=== PATIENT | female | born 1995 | race Caucasian/White ===

== ENCOUNTER 2017-06-25 22:22 | Emergency (ER) | payer OTHER, MEDICAID ==
[2017-06-25] MEDS ORDERED: SODIUM CHLORIDE 0.9% 1000ML 1,000 ML IVS ONE (23:32)
--- NOTE | 2017-06-26 00:48 | ED.PDOC ---
History of Present Illness - General Chief Complaint: Abdominal Pain Stated Complaint: left side pain Time Seen by Provider: 06/26/17 00:41 Information Source: patient Exam Limitations: no limitations - History of Present Illness Initial Comments: Kathy Earl 21 y/o female stated that she started having sharp intermittent abdominal pains the last 4 days not getting better and yesterday had 2 episodes of vomiting. Had normal bm,no diarrhea,no vaginal discharge. Abdominal Pain Onset Location: LLQ Pain Radiation: no radiation, LLQ Quality: sharpness Timing/Duration: other - 4 days ago Improving Factors: nothing Worsening Factors: nothing Associated Symptoms: nausea/vomiting - x 2 yesterday Review of Systems - Review of Systems Constitutional: States: no symptoms reported EENTM: States: no symptoms reported Respiratory: States: no symptoms reported Cardiology: States: no symptoms reported Gastrointestinal/Abdominal: States: see HPI Genitourinary: States: no symptoms reported Musculoskeletal: States: no symptoms reported Skin: States: no symptoms reported Past Medical History (General) - Patient Medical History Hx Seizures: No Hx Stroke: No Hx Dementia: No Hx Asthma: Yes Hx of COPD: No Hx Cardiac Disorders: No Hx Congestive Heart Failure: No Hx Pacemaker: No Hx Hypertension: No Hx Thyroid Disease: No Hx Diabetes: Yes - gestational Hx Gastroesophageal Reflux: No Hx Renal Disease: No Hx Cancer: No Hx of HIV: No Hx Hepatitis C: No Hx MRSA: No Surgical History: other - c section - Vaccination History Hx Tetanus, Diphtheria Vaccination: No Hx Influenza Vaccination: No Hx Pneumococcal Vaccination: No - Social History Hx Tobacco Use: No Hx Chewing Tobacco Use: No Hx Alcohol Use: No Hx Substance Use: No Hx Substance Use Treatment: No Hx Depression: No Hx Physical Abuse: No Hx Emotional Abuse: No Hx Suspected Abuse: No - Female History Hx Last Menstrual Period: 06/08/17 Patient : No Expected Date of Delivery:: 10/10/15 Family Medical History - Family History Paternal Grandparents Family History: Unknown Living Status: Unknown Hx Family Diabetes: Yes - type 2 Hx Family;Other: Ht disease Sister Living Status: Still Living Hx Family;Other: thyroid dysfunction, migraines Mother Family History: No Known Hx Family;Other: migraines, multiple births Father Living Status: Still Living Hx Family Hypertension: Yes Hx Family Diabetes: Yes Hx Family Cancer: Yes Hx Family;Other: multiple births Brother Paternal Family History: Unknown Hx Family Cancer: Yes - bone Progress - Progress Progress: 06/26/17 01:29 Vital Signs - 8 hr 06/25/17 23:34 Temperature 98.8 F Pulse Rate [ 99 H left] Respiratory 18 Rate Blood Pressure 132/81 [left] O2 Sat by Pulse 94 L Oximetry Laboratory Results - last 24 hr 06/25/17 06/25/17 06/25/17 23:30 23:30 23:32 WBC 11.1 H RBC 5.36 Hgb 14.1 Hct 42.9 MCV 80.1 L MCH 26.3 L MCHC 32.8 L RDW 14.6 H Plt Count 283 MPV 9.4 Absolute Neuts (auto) 6.90 H Absolute Lymphs (auto) 3.00 Absolute Monos (auto) 0.80 Absolute Eos (auto) 0.30 Absolute Basos (auto) 0.10 Neutrophils % 62.3 Lymphocytes % 26.6 Monocytes % 7.1 Eosinophils % 2.9 Basophils % 1.1 Sodium 140 Potassium 3.9 Chloride 107 Carbon Dioxide 24 Anion Gap 12.9 BUN 9 Creatinine 0.68 BUN/Creatinine Ratio 13.2 Random Glucose 82 Serum Osmolality 277.2 Calcium 9.6 Total Bilirubin 0.3 AST 23 ALT 21 Alkaline Phosphatase 77 Serum Total Protein 7.5 Albumin 4.2 Globulin 3.3 Albumin/Globulin Ratio 1.3 Serum HCG, Qual Urine Color Yellow Urine Appearance Sl cloudy Urine pH 6.0 Ur Specific [place] 1.025 Urine Protein Negative Urine Glucose (UA) Negative Urine Ketones Negative Urine Blood Negative Urine Nitrite Negative Urine Bilirubin Negative Urine Urobilinogen 0.2 Ur Leukocyte Esterase Negative Urine RBC 0 Urine WBC 1-3 Ur Epithelial Cells 20-30 Calcium Oxalate Crystal 1+ Urine Bacteria 1+ 06/26/17 00:48 WBC RBC Hgb Hct MCV MCH MCHC RDW Plt Count MPV Absolute Neuts (auto) Absolute Lymphs (auto) Absolute Monos (auto) Absolute Eos (auto) Absolute Basos (auto) Neutrophils % Lymphocytes % Monocytes % Eosinophils % Basophils % Sodium Potassium Chloride Carbon Dioxide Anion Gap BUN Creatinine BUN/Creatinine Ratio Random Glucose Serum Osmolality Calcium Total Bilirubin AST ALT Alkaline Phosphatase Serum Total Protein Albumin Globulin Albumin/Globulin Ratio Serum HCG, Qual Negative Urine Color Urine Appearance Urine pH Ur Specific [place] Urine Protein Urine Glucose (UA) Urine Ketones Urine Blood Urine Nitrite Urine Bilirubin Urine Urobilinogen Ur Leukocyte Esterase Urine RBC Urine WBC Ur Epithelial Cells Calcium Oxalate Crystal Urine Bacteria 06/26/17 01:30 Laboratory Results - last 24 hr 06/25/17 06/25/17 06/25/17 23:30 23:30 23:32 WBC 11.1 H RBC 5.36 Hgb 14.1 Hct 42.9 MCV 80.1 L MCH 26.3 L MCHC 32.8 L RDW 14.6 H Plt Count 283 MPV 9.4 Absolute Neuts (auto) 6.90 H Absolute Lymphs (auto) 3.00 Absolute Monos (auto) 0.80 Absolute Eos (auto) 0.30 Absolute Basos (auto) 0.10 Neutrophils % 62.3 Lymphocytes % 26.6 Monocytes % 7.1 Eosinophils % 2.9 Basophils % 1.1 Sodium 140 Potassium 3.9 Chloride 107 Carbon Dioxide 24 Anion Gap 12.9 BUN 9 Creatinine 0.68 BUN/Creatinine Ratio 13.2 Random Glucose 82 Serum Osmolality 277.2 Calcium 9.6 Total Bilirubin 0.3 AST 23 ALT 21 Alkaline Phosphatase 77 Serum Total Protein 7.5 Albumin 4.2 Globulin 3.3 Albumin/Globulin Ratio 1.3 Serum HCG, Qual Urine Color Yellow Urine Appearance Sl cloudy Urine pH 6.0 Ur Specific [place] 1.025 Urine Protein Negative Urine Glucose (UA) Negative Urine Ketones Negative Urine Blood Negative Urine Nitrite Negative Urine Bilirubin Negative Urine Urobilinogen 0.2 Ur Leukocyte Esterase Negative Urine RBC 0 Urine WBC 1-3 Ur Epithelial Cells 20-30 Calcium Oxalate Crystal 1+ Urine Bacteria 1+ 06/26/17 00:48 WBC RBC Hgb Hct MCV MCH MCHC RDW Plt Count MPV Absolute Neuts (auto) Absolute Lymphs (auto) Absolute Monos (auto) Absolute Eos (auto) Absolute Basos (auto) Neutrophils % Lymphocytes % Monocytes % Eosinophils % Basophils % Sodium Potassium Chloride Carbon Dioxide Anion Gap BUN Creatinine BUN/Creatinine Ratio Random Glucose Serum Osmolality Calcium Total Bilirubin AST ALT Alkaline Phosphatase Serum Total Protein Albumin Globulin Albumin/Globulin Ratio Serum HCG, Qual Negative Urine Color Urine Appearance Urine pH Ur Specific [place] Urine Protein Urine Glucose (UA) Urine Ketones Urine Blood Urine Nitrite Urine Bilirubin Urine Urobilinogen Ur Leukocyte Esterase Urine RBC Urine WBC Ur Epithelial Cells Calcium Oxalate Crystal Urine Bacteria Departure - Departure Clinical Impression: Abdominal pain Qualifiers: Abdominal location: lower abdomen, unspecified Qualified Code(s): R10.30 - Lower abdominal pain, unspecified Time of Disposition: 01:36 Disposition: Discharge to Home or Self Care Condition: Fair Departure Forms: ED Discharge - Pt. Copy, Patient Portal Self Enrollment Instructions: DI for Abdominal Pain-Adult Referrals: David Rdoriguez MD [Primary Care Provider] - 1-2 Weeks Prescriptions: Naproxen [Naprosyn] 500 mg PO BID PRN #20 tab PRN Reason: Pain Home Medications: Ambulatory Orders Naproxen [Naprosyn] 500 mg PO BID PRN #20 tab 06/26/17 Additional Instructions: FOLLOW UP WITH PRIMARY MD Dr. Rodriguez call for appointment
[2017-06-26] MEDS ORDERED: HYDROcodone 10MG/APAP 325MG 1 EA TAB PO ONE (01:33)
[2017-06-26] MEDS ORDERED: KETOROLAC TROMETHAMINE INJ 60 MG/2 ML VIAL IM ONE (01:33)
[2017-06-26] MEDS ORDERED: KETOROLAC TROMETHAMINE INJ 30 MG/ML VIAL IV ONE (01:35)
[2017-06-26 01:47] VITALS: BP 126/84; TEMP 98.6; O2SAT 95
== END 2017-06-26 01:50 | disposition home or self-care (01) ==
LOC: ER 22:22
DX: R10.30 Lower abdominal pain, unspecified (principal); J45.909 Unspecified asthma, uncomplicated; Z86.32 Personal history of gestational diabetes

== ENCOUNTER 2017-07-03 19:20 | Emergency (ER) | payer MEDICAID, OTHER ==
[2017-07-03] MEDS ORDERED: LIDOCAINE VIS-MYLANTA 30 ML UD PO ONE (19:42)
[2017-07-03] MEDS ORDERED: PANTOPRAZOLE SODIUM TAB 40 MG PO ONE (19:42)
[2017-07-03 19:50] VITALS: TEMP 98.1; O2SAT 96
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
[2017-07-03 21:10] VITALS: BP 163/80
== END 2017-07-03 21:10 | disposition home or self-care (01) ==
LOC: ER 19:20
DX: K21.0 Gastro-esophageal reflux disease with esophagitis (principal); J45.909 Unspecified asthma, uncomplicated; Z82.49 Family history of ischemic heart disease and other diseases of the circulatory system

== ENCOUNTER 2017-08-12 21:50 | Emergency (ER) | payer OTHER ==
[2017-08-12] MEDS ORDERED: SODIUM CHLORIDE 0.9% 1000ML 1,000 ML IVS ONE (22:08)
[2017-08-12] MEDS ORDERED: ONDANSETRON INJ 4 MG/2 ML VIAL IV ONE (22:08)
--- NOTE | 2017-08-12 22:11 | ED.PDOC ---
History of Present Illness - General Chief Complaint: GI Problem Stated Complaint: N/V onset today Time Seen by Provider: 08/12/17 21:55 Information Source: patient, RN notes reviewed, Vital Signs reviewed Exam Limitations: no limitations - History of Present Illness Initial Comments: Patient presents to ER with c/o nausea and vomiting that started @ 6am today. Initially had some stabbing L sided abdominal pain but that resolved. + subjective fever but no chills. Reports she is not able to keep anything down. No FOX. + diarrhea 3 days ago but none today. Denies urinary symptoms. Abdominal Pain Onset Location: LUQ Pain Radiation: no radiation Quality: moderate, stabbing, other - gone now Timing/Duration: 7-24 hours Improving Factors: nothing Worsening Factors: nothing Associated Symptoms: fever/chills, nausea/vomiting Review of Systems - Review of Systems Constitutional: States: chills, fever, malaise EENTM: States: no symptoms reported Respiratory: States: cough. Denies: short of breath Cardiology: States: no symptoms reported Gastrointestinal/Abdominal: States: see HPI, abdominal pain, nausea, vomiting. Denies: constipation, diarrhea Genitourinary: States: no symptoms reported Musculoskeletal: States: no symptoms reported Skin: States: no symptoms reported Neurological: States: no symptoms reported. Denies: headache All other Systems: No Change from Baseline Past Medical History (General) - Patient Medical History Hx Seizures: No Hx Stroke: No Hx Dementia: No Hx Asthma: Yes Hx of COPD: No Hx Cardiac Disorders: No Hx Congestive Heart Failure: No Hx Pacemaker: No Hx Hypertension: No Hx Thyroid Disease: No Hx Diabetes: No Hx Gastroesophageal Reflux: No Hx Renal Disease: No Hx Cancer: No Hx of HIV: No Hx Hepatitis C: No Hx MRSA: No - Vaccination History Hx Tetanus, Diphtheria Vaccination: No Hx Influenza Vaccination: No Hx Pneumococcal Vaccination: No - Social History Hx Tobacco Use: No Hx Chewing Tobacco Use: No Hx Alcohol Use: No Hx Substance Use: No Hx Substance Use Treatment: No Hx Depression: No Feels Threatened In Home Enviroment: No Feels Threatened In a Relationship: No Hx Physical Abuse: No Hx Emotional Abuse: No Hx Suspected Abuse: No - Female History Hx Last Menstrual Period: 06/08/17 Patient : No Expected Date of Delivery:: 10/10/15 Family Medical History - Family History Paternal Grandparents Family History: Unknown Living Status: Unknown Hx Family Diabetes: Yes - type 2 Hx Family;Other: Ht disease Sister Living Status: Still Living Hx Family;Other: thyroid dysfunction, migraines Mother Family History: No Known Hx Family;Other: migraines, multiple births Father Living Status: Still Living Hx Family Hypertension: Yes Hx Family Diabetes: Yes Hx Family Cancer: Yes Hx Family;Other: multiple births Brother Paternal Family History: Unknown Hx Family Cancer: Yes - bone Physical Exam - Physical Exam General Appearance: Alert, Comfortable, No apparent distress, Well Developed, Well Groomed, Well Nourished Eyes, Ears, Nose, Throat Exam: other - mucous membranes are slightly dry Neck: supple, normal inspection Respiratory: lungs clear, normal breath sounds, no respiratory distress, no accessory muscle use Cardiovascular/Chest: regular rate, rhythm, no gallop, no murmur Gastrointestinal/Abdominal: normal bowel sounds, non tender, soft, no organomegaly Extremity: non-tender, normal inspection Neurologic: alert, normal mood/affect, oriented x 3 Skin Exam: normal color, warm/dry Comments: Vital Signs 08/12/17 21:55 Temperature 99.3 F Pulse Rate [ 93 H monitor] Respiratory 20 Rate Blood Pressure 136/86 [Left Arm] O2 Sat by Pulse 95 Oximetry Progress - Progress Progress: 08/12/17 23:30 Feeling better with Zofran and fluids Will d/c home with Rx for Zofran - Results/Orders Results/Orders: Laboratory Tests 08/12/17 08/12/17 22:33 22:33 WBC 12.1 H RBC 5.00 Hgb 13.4 Hct 40.5 MCV 81.0 MCH 26.9 L MCHC 33.2 RDW 14.6 H Plt Count 258 MPV 8.7 Absolute Neuts (auto) 8.60 H Absolute Lymphs (auto) 2.80 Absolute Monos (auto) 0.60 Absolute Eos (auto) 0.10 Absolute Basos (auto) 0.10 Neutrophils % 70.5 Lymphocytes % 22.8 Monocytes % 5.0 Eosinophils % 1.2 Basophils % 0.5 Sodium 137 Potassium 3.3 L Chloride 107 Carbon Dioxide 21 Anion Gap 12.3 BUN 10 Creatinine 0.45 L BUN/Creatinine Ratio 22.2 H Random Glucose 82 Serum Osmolality 271.9 L Calcium 9.1 Total Bilirubin 0.7 AST 20 ALT 21 Alkaline Phosphatase 74 L Serum Total Protein 8.1 Albumin 4.4 Globulin 3.7 H Albumin/Globulin Ratio 1.2 Departure - Departure Clinical Impression: Gastroenteritis Time of Disposition: 23:31 Disposition: Discharge to Home or Self Care Condition: Good Departure Forms: ED Discharge - Pt. Copy, Patient Portal Self Enrollment Instructions: DI for Viral Gastroenteritis -- Adult Diet: resume usual diet Activity: increase activity as tolerated Referrals: David Rodriguez MD [Primary Care Provider] - 1-2 Weeks Prescriptions: Ondansetron [Zofran Odt] 4 mg PO Q6HR PRN #15 tab PRN Reason: Nausea/Vomiting Home Medications: Ambulatory Orders Famotidine 20 mg PO BID #60 tab 07/03/17 Sertraline HCl [Zoloft] 50 mg PO DAILY 07/03/17 Ondansetron [Zofran Odt] 4 mg PO Q6HR PRN #15 tab 08/12/17
[2017-08-12] MEDS ORDERED: ONDANSETRON ODT (ER DISP) 8 MG TAB PO ONE (23:30)
[2017-08-12 23:49] VITALS: BP 127/82; TEMP 99; O2SAT 96
== END 2017-08-13 00:05 | disposition home or self-care (01) ==
LOC: ER 21:50
DX: K52.9 Noninfective gastroenteritis and colitis, unspecified (principal)
CPT/HCPCS: 36415; 80053; 81001; 81025; 85025; J2405; J7030

== ENCOUNTER 2017-08-24 22:19 | Emergency (ER) | payer OTHER ==
[2017-08-24 23:06] VITALS: TEMP 98
[2017-08-24] MEDS ORDERED: SODIUM CHLORIDE 0.9% 1000ML 1,000 ML IVS ONE (23:08)
[2017-08-24] MEDS ORDERED: ONDANSETRON INJ 4 MG/2 ML VIAL IV ONE (23:08)
--- NOTE | 2017-08-24 23:11 | ED.PDOC ---
History of Present Illness - General Chief Complaint: GI Problem Stated Complaint: N/V Time Seen by Provider: 08/24/17 22:24 Information Source: patient, RN notes reviewed, Vital Signs reviewed Exam Limitations: no limitations - History of Present Illness Initial Comments: Patient comes in with c/o nausea, vomiting and not being able to keep anything down since last night. No fever but felt cold all day. No diarrhea. Some occasional sharp pain on the sides of her abdomen. She is ~7 weeks . Abdominal Pain Onset Location: generalized abdomen Pain Radiation: no radiation Quality: mild, sharpness, stabbing Timing/Duration: 24 hours Improving Factors: nothing Worsening Factors: nothing Associated Symptoms: nausea/vomiting Review of Systems - Review of Systems Constitutional: States: chills. Denies: diaphoresis, fever, malaise EENTM: States: no symptoms reported Respiratory: States: no symptoms reported Cardiology: States: no symptoms reported Gastrointestinal/Abdominal: States: see HPI, abdominal pain, nausea, vomiting. Denies: diarrhea Musculoskeletal: States: no symptoms reported Skin: States: no symptoms reported Neurological: States: no symptoms reported All other Systems: No Change from Baseline Past Medical History (General) - Patient Medical History Hx Seizures: No Hx Stroke: No Hx Dementia: No Hx Asthma: Yes Hx of COPD: No Hx Cardiac Disorders: No Hx Congestive Heart Failure: No Hx Pacemaker: No Hx Hypertension: No Hx Thyroid Disease: No Hx Diabetes: No Hx Gastroesophageal Reflux: No Hx Renal Disease: No Hx Cancer: No Hx of HIV: No Hx Hepatitis C: No Hx MRSA: No Surgical History: no surgical history - Vaccination History Hx Tetanus, Diphtheria Vaccination: No Hx Influenza Vaccination: No Hx Pneumococcal Vaccination: No - Social History Hx Tobacco Use: No Hx Chewing Tobacco Use: No Hx Alcohol Use: No Hx Substance Use: No Hx Substance Use Treatment: No Hx Depression: No Feels Threatened In Home Enviroment: No Feels Threatened In a Relationship: No Hx Physical Abuse: No Hx Emotional Abuse: No Hx Suspected Abuse: No - Female History Patient is a Female of Child Bearing Age (10 -59 yrs old): Yes Hx Last Menstrual Period: 06/08/17 Patient : No Expected Date of Delivery:: 10/10/15 Hx Gestational Age: 7 - Triage Comment ED Triage Comment: 7 weeks Family Medical History - Family History Paternal Grandparents Family History: Unknown Living Status: Unknown Hx Family Diabetes: Yes - type 2 Hx Family;Other: Ht disease Sister Living Status: Still Living Hx Family;Other: thyroid dysfunction, migraines Mother Family History: No Known Hx Family;Other: migraines, multiple births Father Living Status: Still Living Hx Family Hypertension: Yes Hx Family Diabetes: Yes Hx Family Cancer: Yes Hx Family;Other: multiple births Brother Paternal Family History: Unknown Hx Family Cancer: Yes - bone Physical Exam - Physical Exam General Appearance: Alert, Comfortable, No apparent distress, Unkempt, Well Developed, Well Nourished Neck: supple, normal inspection Respiratory: lungs clear, normal breath sounds, no respiratory distress, no accessory muscle use Cardiovascular/Chest: regular rate, rhythm, no gallop, no murmur Gastrointestinal/Abdominal: normal bowel sounds, non tender, soft, no organomegaly Extremity: normal range of motion, non-tender, normal inspection Neurologic: alert, normal mood/affect, oriented x 3 Skin Exam: normal color, warm/dry Comments: Vital Signs 08/24/17 22:30 Temperature 98.0 F Pulse Rate [ 69 monitor] Respiratory 16 Rate Blood Pressure 118/75 [Left Arm] O2 Sat by Pulse 95 Oximetry Progress - Progress Progress: 08/25/17 00:30 Feeling better after Zofran and IV fluids - Results/Orders Results/Orders: Laboratory Tests 08/24/17 08/24/17 23:20 23:20 WBC 10.3 RBC 5.07 Hgb 13.7 Hct 41.3 MCV 81.6 MCH 27.1 MCHC 33.2 RDW 14.9 H Plt Count 234 MPV 9.3 Absolute Neuts (auto) 7.00 H Absolute Lymphs (auto) 2.50 Absolute Monos (auto) 0.60 Absolute Eos (auto) 0.10 Absolute Basos (auto) 0.00 Neutrophils % 67.7 Lymphocytes % 24.7 Monocytes % 6.0 Eosinophils % 1.2 Basophils % 0.4 Sodium 134 L Potassium 3.8 Chloride 102 Carbon Dioxide 23 Anion Gap 12.8 BUN 9 Creatinine 0.45 L BUN/Creatinine Ratio 20.0 Random Glucose 79 Serum Osmolality 265.8 L Calcium 9.8 Total Bilirubin 0.4 AST 15 ALT 16 Alkaline Phosphatase 70 Serum Total Protein 7.8 Albumin 4.5 Globulin 3.3 Albumin/Globulin Ratio 1.4 Departure - Departure Clinical Impression: Nausea and vomiting during Time of Disposition: 00:31 Disposition: Discharge to Home or Self Care Condition: Good Departure Forms: ED Discharge - Pt. Copy, Patient Portal Self Enrollment Instructions: Nausea and Vomiting-Adult Diet: resume usual diet Activity: increase activity as tolerated Referrals: David Rodriguez MD [Primary Care Provider] - 1-2 Weeks Prescriptions: Ondansetron [Zofran Odt] 4 mg PO Q6HR PRN #20 tab PRN Reason: Nausea/Vomiting Home Medications: Ambulatory Orders Famotidine 20 mg PO BID #60 tab 07/03/17 Sertraline HCl [Zoloft] 50 mg PO DAILY 07/03/17 Ondansetron [Zofran Odt] 4 mg PO Q6HR PRN #15 tab 08/12/17 Ondansetron [Zofran Odt] 4 mg PO Q6HR PRN #20 tab 08/25/17
[2017-08-25 00:38] VITALS: BP 126/75; O2SAT 99
== END 2017-08-25 00:39 | disposition home or self-care (01) ==
LOC: ER 22:19
DX: O21.0 Mild hyperemesis gravidarum (principal); Z3A.01 Less than 8 weeks gestation of pregnancy
CPT/HCPCS: 36415; 80053; 85025; J2405; J7030

== ENCOUNTER 2017-08-28 21:14 | Emergency (ER) | payer OTHER ==
[2017-08-28 21:55] VITALS: BP 130/85; TEMP 99; O2SAT 99
--- NOTE | 2017-08-28 21:57 | ED.PDOC ---
History of Present Illness - General Chief Complaint: GI Problem Stated Complaint: nausea, vomiting Time Seen by Provider: 08/28/17 21:49 Source: patient Exam Limitations: no limitations - History of Present Illness Initial Comments: Patient is a in the first trimester who presents with N/V. She has tried Zofran and it hasn't been working. She has an OB appointment next week. No other complaints. Timing/Duration: changing over time Severity: mild Improving Factors: nothing Worsening Factors: nothing Associated Symptoms: denies symptoms Allergies/Adverse Reactions: Allergies NO KNOWN ALLERGY Allergy (Verified 08/28/17 21:47) Home Medications: Ambulatory Orders Ondansetron [Zofran Odt] 4 mg PO Q6HR PRN #20 tab 08/25/17 Review of Systems - Review of Systems Constitutional: States: no symptoms reported EENTM: States: no symptoms reported Respiratory: States: no symptoms reported Cardiology: States: no symptoms reported Gastrointestinal/Abdominal: States: see HPI Genitourinary: States: no symptoms reported Musculoskeletal: States: no symptoms reported Skin: States: no symptoms reported Neurological: States: no symptoms reported Endocrine: States: no symptoms reported Hematologic/Lymphatic: States: no symptoms reported Past Medical History (General) - Patient Medical History Hx Seizures: No Hx Stroke: No Hx Dementia: No Hx Asthma: Yes Hx of COPD: No Hx Cardiac Disorders: No Hx Congestive Heart Failure: No Hx Pacemaker: No Hx Hypertension: No Hx Thyroid Disease: No Hx Diabetes: No Hx Gastroesophageal Reflux: No Hx Renal Disease: No Hx Cancer: No Hx of HIV: No Hx Hepatitis C: No Hx MRSA: No - Vaccination History Hx Tetanus, Diphtheria Vaccination: No Hx Influenza Vaccination: No Hx Pneumococcal Vaccination: No - Social History Hx Tobacco Use: No Hx Chewing Tobacco Use: No Hx Alcohol Use: No Hx Substance Use: No Hx Substance Use Treatment: No Hx Depression: No Hx Physical Abuse: No Hx Emotional Abuse: No Hx Suspected Abuse: No - Female History Hx Last Menstrual Period: 06/08/17 Patient : No Expected Date of Delivery:: 10/10/15 Hx Gestational Age: 8 Family Medical History - Family History Paternal Grandparents Family History: Unknown Living Status: Unknown Hx Family Diabetes: Yes - type 2 Hx Family;Other: Ht disease Sister Living Status: Still Living Hx Family;Other: thyroid dysfunction, migraines Mother Family History: No Known Hx Family;Other: migraines, multiple births Father Living Status: Still Living Hx Family Hypertension: Yes Hx Family Diabetes: Yes Hx Family Cancer: Yes Hx Family;Other: multiple births Brother Paternal Family History: Unknown Hx Family Cancer: Yes - bone Physical Exam - Physical Exam General Appearance: Alert Respiratory: lungs clear Cardiovascular/Chest: regular rate, rhythm Gastrointestinal/Abdominal: normal bowel sounds, non tender, soft Departure - Departure Clinical Impression: Nausea and vomiting during Disposition: Discharge to Home or Self Care Condition: Good Departure Forms: ED Discharge - Pt. Copy, Patient Portal Self Enrollment Diet: resume usual diet Activity: increase activity as tolerated Referrals: David Rodriguez MD [Primary Care Provider] - 1-2 Weeks Home Medications: Ambulatory Orders Ondansetron [Zofran Odt] 4 mg PO Q6HR PRN #20 tab 08/25/17 Additional Instructions: Try over the counter Unisom, one half tablet along with 25 mg of vitamin B6. Up to three times daily. Do not drive after taking the Unisom.
== END 2017-08-28 22:05 | disposition home or self-care (01) ==
LOC: ER 21:14
DX: O21.0 Mild hyperemesis gravidarum (principal); Z3A.00 Weeks of gestation of pregnancy not specified

== ENCOUNTER 2017-08-30 16:07 | Emergency (ER) | payer OTHER ==
--- NOTE | 2017-08-30 16:22 | ED.PDOC ---
History of Present Illness - General Chief Complaint: General Stated Complaint: nausea/vomiting Time Seen by Provider: 08/30/17 16:21 Source: patient Exam Limitations: no limitations - History of Present Illness Initial Comments: Kathy Earl 22 y/o female stated that she had been having nausea/vomiting on and off the last 3 days unable to get anything down stating she has morning sickness. Timing/Duration: intermittent, other - 3 days Severity: moderate Improving Factors: nothing Worsening Factors: nothing Associated Symptoms: nausea/vomiting Allergies/Adverse Reactions: Allergies NO KNOWN ALLERGY Allergy (Verified 08/30/17 16:34) Home Medications: Ambulatory Orders Ondansetron [Zofran Odt] 4 mg PO Q6HR PRN #20 tab 08/25/17 Review of Systems - Review of Systems Constitutional: States: no symptoms reported EENTM: States: no symptoms reported Respiratory: States: no symptoms reported Cardiology: States: no symptoms reported Gastrointestinal/Abdominal: States: see HPI Musculoskeletal: States: no symptoms reported Past Medical History (General) - Patient Medical History Hx Seizures: No Hx Stroke: No Hx Dementia: No Hx Asthma: Yes Hx of COPD: No Hx Cardiac Disorders: No Hx Congestive Heart Failure: No Hx Pacemaker: No Hx Hypertension: No Hx Thyroid Disease: No Hx Diabetes: No Hx Gastroesophageal Reflux: No Hx Renal Disease: No Hx Cancer: No Hx of HIV: No Hx Hepatitis C: No Hx MRSA: No Surgical History: other - c section - Vaccination History Hx Tetanus, Diphtheria Vaccination: No Hx Influenza Vaccination: No Hx Pneumococcal Vaccination: No - Social History Hx Tobacco Use: No Hx Chewing Tobacco Use: No Hx Alcohol Use: No Hx Substance Use: No Hx Substance Use Treatment: No Hx Depression: No Hx Physical Abuse: No Hx Emotional Abuse: No Hx Suspected Abuse: No - Female History Hx Last Menstrual Period: 07/02/17 Patient : Yes Expected Date of Delivery:: 04/08/18 Hx Gestational Age: 11 Family Medical History - Family History Paternal Grandparents Family History: Unknown Living Status: Unknown Hx Family Diabetes: Yes - type 2 Hx Family;Other: Ht disease Sister Living Status: Still Living Hx Family;Other: thyroid dysfunction, migraines Mother Family History: No Known Hx Family;Other: migraines, multiple births Father Living Status: Still Living Hx Family Hypertension: Yes Hx Family Diabetes: Yes Hx Family Cancer: Yes Hx Family;Other: multiple births Brother Paternal Family History: Unknown Hx Family Cancer: Yes - bone Physical Exam - Physical Exam General Appearance: Alert, No apparent distress Eye Exam: bilateral normal Ears, Nose, Throat: hearing grossly normal, normal ENT inspection, normal pharynx Neck: non-tender, full range of motion, supple Respiratory: chest non-tender, lungs clear, normal breath sounds Cardiovascular/Chest: normal peripheral pulses, no murmur Peripheral Pulses: radial,right: 1+, radial,left: 1+ Gastrointestinal/Abdominal: normal bowel sounds, non tender, soft Extremity: normal range of motion, no pedal edema, no calf tenderness Skin Exam: normal color, warm/dry Lymphatic: no adenopathy Progress - Progress Progress: 08/30/17 17:44 Vital Signs - 8 hr 08/30/17 16:10 Temperature 98 F Pulse Rate [ 79 pulse ox] Respiratory 20 Rate Blood Pressure 125/70 [Left Arm] O2 Sat by Pulse 96 Oximetry - Results/Orders Results/Orders: Laboratory Tests 08/30/17 08/30/17 08/30/17 16:24 16:52 16:52 WBC 8.8 RBC 5.25 Hgb 14.3 Hct 42.4 MCV 80.8 L MCH 27.2 MCHC 33.7 RDW 14.8 H Plt Count 218 MPV 9.4 Absolute Neuts (auto) 6.60 Absolute Lymphs (auto) 1.60 Absolute Monos (auto) 0.50 Absolute Eos (auto) 0.10 Absolute Basos (auto) 0.00 Neutrophils % 74.7 Lymphocytes % 18.5 L Monocytes % 5.6 Eosinophils % 0.7 L Basophils % 0.5 Sodium 138 Potassium 3.6 Chloride 106 Carbon Dioxide 22 Anion Gap 13.6 BUN 13 Creatinine 0.49 L BUN/Creatinine Ratio 26.5 H Random Glucose 77 Serum Osmolality 274.6 L Calcium 9.5 Total Bilirubin 0.9 AST 28 ALT 41 Alkaline Phosphatase 60 Serum Total Protein 7.9 Albumin 4.4 Globulin 3.5 Albumin/Globulin Ratio 1.3 Lipase 20 L Serum HCG, Qual Positive Urine Color Urine Appearance Urine pH Ur Specific [place] Urine Protein Urine Glucose (UA) Urine Ketones Urine Blood Urine Nitrite Urine Bilirubin Urine Urobilinogen Ur Leukocyte Esterase Urine RBC Urine WBC Ur Epithelial Cells Amorphous Sediment Urine Bacteria Urine Mucus Urine Yeast 08/30/17 17:15 WBC RBC Hgb Hct MCV MCH MCHC RDW Plt Count MPV Absolute Neuts (auto) Absolute Lymphs (auto) Absolute Monos (auto) Absolute Eos (auto) Absolute Basos (auto) Neutrophils % Lymphocytes % Monocytes % Eosinophils % Basophils % Sodium Potassium Chloride Carbon Dioxide Anion Gap BUN Creatinine BUN/Creatinine Ratio Random Glucose Serum Osmolality Calcium Total Bilirubin AST ALT Alkaline Phosphatase Serum Total Protein Albumin Globulin Albumin/Globulin Ratio Lipase Serum HCG, Qual Urine Color Yellow Urine Appearance Clear Urine pH 5.5 Ur Specific [place] >= 1.030 Urine Protein 30 Urine Glucose (UA) Negative Urine Ketones >=160 Urine Blood Trace-intact H Urine Nitrite Negative Urine Bilirubin Moderate Urine Urobilinogen 4.0 H Ur Leukocyte Esterase Negative Urine RBC 0-1 Urine WBC 3-5 H Ur Epithelial Cells 10-20 Amorphous Sediment Trace Urine Bacteria 1+ Urine Mucus Trace Urine Yeast Rare Departure - Departure Clinical Impression: Hyperemesis gravidarum with metabolic disturbance, antepartum, Volume depletion Time of Disposition: 17:55 Disposition: Discharge to Home or Self Care Instructions: Hyperemesis Gravidarum, DI for Hyperemesis Gravidarum Diet: other - small frequent meal;Avoid GREASY,SPICY foods. Referrals: David Rodriguez MD [Primary Care Provider] - 1-2 Weeks Home Medications: Ambulatory Orders Ondansetron [Zofran Odt] 4 mg PO Q6HR PRN #20 tab 08/25/17 Additional Instructions: KEEP APPOINTMENT WITH Dr. RODRIGUEZ -OB in AM
[2017-08-30] MEDS ORDERED: LACTATED RINGERS 1,000 ML IVS ONE ×2 (16:23→17:55)
[2017-08-30] MEDS ORDERED: PROMETHAZINE HCL INJ 25 MG/ML VIAL IM ONE (17:47)
[2017-08-30] MEDS ORDERED: DEX 5% W/NACL 0.45% 1000ML 1,000 ML IVS PRN (17:56)
[2017-08-30 18:23] VITALS: O2SAT 98
[2017-08-30 19:29] VITALS: BP 132/62; TEMP 97.5
== END 2017-08-30 19:28 | disposition home or self-care (01) ==
LOC: ER 16:07
DX: O21.1 Hyperemesis gravidarum with metabolic disturbance (principal); Z3A.10 10 weeks gestation of pregnancy
CPT/HCPCS: 36415; 80053; 81001; 83690; 84703; 85025; J2550; J7120; J7799

== ENCOUNTER 2017-09-12 17:30 | Emergency (ER) | payer OTHER ==
[2017-09-12] MEDS ORDERED: ONDANSETRON ODT 8 MG TAB SL ONE ×2 (17:56→18:33)
[2017-09-12] MEDS ORDERED: PROMETHAZINE HCL INJ 25 MG/ML VIAL IM ONE (17:56)
[2017-09-12] MEDS ORDERED: ACETAMINOPHEN 325 MG TAB PO ONE (18:30)
--- NOTE | 2017-09-12 19:19 | ED.PDOC ---
History of Present Illness - General Chief Complaint: GI Problem Time Seen by Provider: 09/12/17 17:39 Source: patient Exam Limitations: no limitations - History of Present Illness Initial Comments: the patient is a 22-year-old female presenting at approximately 10 weeks gestational age secondary to recurrence of uncontrolled hyperemesis gravidarum. The patient was apparently hospitalized in [place] for a period of 3 days up until approximately 3 days ago. At that time she was released. The patient was given new prescriptions for Zofran, and Phenergan topical. She ran out of her original Zofran yesterday and of course did not get her refills filled. She started having some nausea and vomiting this morning. Additionally yesterday she obtained a flu shot and does have a mild elevation in her basal temperature this morning, most likekly as a result of that. No new symptoms otherwise. No abdominal pain. She does appear to be well hydrated. No contractions or loss of fluid. No vaginal bleeding. No cough, sore throat, chest pain or runny nose. the patient did have lab work at this previous hospital stay. she is only having nausea and vomiting now but no abdominal pain. Timing/Duration: 24 hours Severity: mild Improving Factors: nothing Worsening Factors: nothing Associated Symptoms: nausea/vomiting Allergies/Adverse Reactions: Allergies NO KNOWN ALLERGY Allergy (Verified 09/12/17 17:45) Home Medications: Ambulatory Orders NK [NK] 09/12/17 Review of Systems - Review of Systems Constitutional: States: no symptoms reported EENTM: States: no symptoms reported Respiratory: States: no symptoms reported Cardiology: States: no symptoms reported Gastrointestinal/Abdominal: States: nausea, vomiting Genitourinary: States: no symptoms reported Musculoskeletal: States: no symptoms reported Skin: States: no symptoms reported Neurological: States: no symptoms reported Endocrine: States: no symptoms reported All other Systems: No Change from Baseline Past Medical History (General) - Patient Medical History Hx Seizures: No Hx Stroke: No Hx Dementia: No Hx Asthma: Yes Hx of COPD: No Hx Cardiac Disorders: No Hx Congestive Heart Failure: No Hx Pacemaker: No Hx Hypertension: No Hx Thyroid Disease: No Hx Diabetes: No Hx Gastroesophageal Reflux: No Hx Renal Disease: No Hx Cancer: No Hx of HIV: No Hx Hepatitis C: No Hx MRSA: No - Vaccination History Hx Tetanus, Diphtheria Vaccination: No Hx Influenza Vaccination: Yes - 2017 Hx Pneumococcal Vaccination: No - Social History Hx Tobacco Use: No Hx Chewing Tobacco Use: No Hx Alcohol Use: No Hx Substance Use: No Hx Substance Use Treatment: No Hx Depression: No Hx Physical Abuse: No Hx Emotional Abuse: No Hx Suspected Abuse: No - Female History Patient is a Female of Child Bearing Age (10 -59 yrs old): Yes Hx Last Menstrual Period: 07/02/17 Patient : Yes Expected Date of Delivery:: 04/09/18 Hx Gestational Age: 10 Family Medical History - Family History Paternal Grandparents Family History: Unknown Living Status: Unknown Hx Family Diabetes: Yes - type 2 Hx Family;Other: Ht disease Sister Living Status: Still Living Hx Family;Other: thyroid dysfunction, migraines Mother Family History: No Known Hx Family;Other: migraines, multiple births Father Living Status: Still Living Hx Family Hypertension: Yes Hx Family Diabetes: Yes Hx Family Cancer: Yes Hx Family;Other: multiple births Brother Paternal Family History: Unknown Living Status: Still Living Hx Family Cancer: Yes - bone Physical Exam - Physical Exam General Appearance: Alert, Comfortable, No apparent distress - the patient appears well-hydrated and in no distress. Eye Exam: bilateral normal Ears, Nose, Throat: hearing grossly normal, normal ENT inspection, normal pharynx, other - mucous membranes are moist. Neck: non-tender, full range of motion, supple Respiratory: chest non-tender, lungs clear, normal breath sounds, no respiratory distress, no accessory muscle use Cardiovascular/Chest: normal peripheral pulses, regular rate, rhythm, no edema Peripheral Pulses: radial,right: 2+, radial,left: 2+, dorsalis pedis,right: 2+, dorsalis pedis,left: 2+ Gastrointestinal/Abdominal: normal bowel sounds, non tender, soft Rectal Exam: deferred Back Exam: normal inspection, no CVA tenderness Extremity: normal range of motion, non-tender, normal inspection, no pedal edema , normal capillary refill Neurologic: educational interpreter II-XII nml as tested, alert, normal mood/affect, oriented x 3 Skin Exam: normal color Comments: Vital Signs - 24 hr 09/12/17 09/12/17 17:31 18:33 Temperature 100.2 F H Pulse Rate [ 89 76 Left Radial] Respiratory 20 20 Rate Blood Pressure 118/78 117/70 [Left Arm] O2 Sat by Pulse 96 96 Oximetry Progress - Progress Progress: 09/12/17 19:20 the patient is a 22-year-old female presenting to the emergency room secondary to a recurrence of her hyperemesis gravidarum symptoms, nausea and vomiting. Control seems to have been lost due to her running out of her medications. She is to get these already written medications, filled tomorrow. She received doses of Phenergan and Zofran here tonight and is receiving some Phenergan suppositories to take home for as needed use tonight. She does appear well hydrated. She does have a very mild elevation in her temperature which is likely the result of the flu shot. She should follow up with her primary care doctor or manual writer early in this coming week. ER warnings were given for any significant worsening. No clinical evidence to indicate labor at this time. Departure - Departure Clinical Impression: Hyperemesis gravidarum Disposition: Discharge to Home or Self Care Condition: Fair Departure Forms: ED Discharge - Pt. Copy, Patient Portal Self Enrollment Instructions: DI for Hyperemesis Gravidarum Diet: bland diet Activity: increase activity as tolerated Referrals: David Rodriguez MD [Primary Care Provider] - 1-5 Days Home Medications: Ambulatory Orders NK [NK] 09/12/17 Additional Instructions: the patient is a 22-year-old female presenting to the emergency room secondary to a recurrence of her hyperemesis gravidarum symptoms, nausea and vomiting. Control seems to have been lost due to her running out of her medications. She is to get these already written medications, filled tomorrow. She received doses of Phenergan and Zofran here tonight and is receiving some Phenergan suppositories to take home for as needed use tonight. She does appear well hydrated. She does have a very mild elevation in her temperature which is likely the result of the flu shot. She should follow up with her primary care doctor or manual writer early in this coming week. ER warnings were given for any significant worsening. No clinical evidence to indicate labor at this time.
[2017-09-12] MEDS ORDERED: PROMETHAZINE SUPP (ER DISP) 25 MG SUP PR ONE (19:23)
[2017-09-12 19:47] VITALS: BP 115/72; TEMP 99.9; O2SAT 97
== END 2017-09-12 19:40 | disposition home or self-care (01) ==
LOC: ER 17:30
DX: O21.0 Mild hyperemesis gravidarum (principal); Z3A.10 10 weeks gestation of pregnancy
CPT/HCPCS: J2550; J8498

== ENCOUNTER 2017-09-14 19:19 | Emergency (ER) | payer OTHER ==
[2017-09-14] MEDS ORDERED: SODIUM CHLORIDE 0.9% 1000ML 1,000 ML IVS ONE (20:05)
[2017-09-14] MEDS ORDERED: ONDANSETRON INJ 4 MG/2 ML VIAL IV ONE (20:05)
[2017-09-14] MEDS ORDERED: FLUCONAZOLE 100 MG TAB PO ONE (20:31)
[2017-09-14] MEDS ORDERED: POTASSIUM CHLORIDE INJ 40 MEQ 40 MEQ in SODIUM CHLORIDE 0.9% 250ML 250 ML IVPB ONE (20:32)
[2017-09-14] MEDS ORDERED: POTASSIUM CHLORIDE 40mEq 20ML VIAL ONE (21:23)
[2017-09-14] MEDS ORDERED: SODIUM CHLORIDE 0.9% 250ML 250 ML ONE (21:23)
[2017-09-14] MEDS ORDERED: PROMETHAZINE HCL INJ 25 MG in SODIUM CHLORIDE 0.9% 50ML 50 ML IVPB ONE (21:25)
--- NOTE | 2017-09-14 21:27 | ED.PDOC ---
History of Present Illness - General Chief Complaint: GI Problem Stated Complaint: nauseated, 10 weeks IUP Time Seen by Provider: 09/14/17 20:03 Source: patient Exam Limitations: no limitations - History of Present Illness Initial Comments: The patient is a 22-year-old female at approximately 10 weeks estimated gestational age presenting for the second time this week with her hyperemesis gravidarum. The patient left here a couple of nights ago and was to get her topical Phenergan and Zofran tablets filled. She did not. Not surprisingly she has started back throwing up. She did apparently see her final inspector balance wheel today. She still did not get her medications filled. She presents back here tonight secondary to continued nausea and vomiting. She was told to go to [place] for direct admission for management of her hyperemesis gravidarum. She could not get a ride there so she showed up here to the emergency room in [place]. No fevers. No pain. No evidence of any labor. No loss of fluid or vaginal bleeding. Timing/Duration: constant Severity: moderate Improving Factors: medication Worsening Factors: nothing Associated Symptoms: loss of appetite, malaise, nausea/vomiting Allergies/Adverse Reactions: Allergies NO KNOWN ALLERGY Allergy (Verified 09/12/17 17:45) Home Medications: Ambulatory Orders Phenergan Suppository 09/14/17 Zofran Odt 09/14/17 Review of Systems - Review of Systems Constitutional: States: malaise EENTM: States: no symptoms reported Respiratory: States: no symptoms reported Cardiology: States: no symptoms reported Gastrointestinal/Abdominal: States: nausea, vomiting Genitourinary: States: no symptoms reported Musculoskeletal: States: no symptoms reported Skin: States: no symptoms reported Neurological: States: no symptoms reported Endocrine: States: no symptoms reported All other Systems: No Change from Baseline Past Medical History (General) - Patient Medical History Hx Seizures: No Hx Stroke: No Hx Dementia: No Hx Asthma: Yes Hx of COPD: No Hx Cardiac Disorders: No Hx Congestive Heart Failure: No Hx Pacemaker: No Hx Hypertension: No Hx Thyroid Disease: No Hx Diabetes: No Hx Gastroesophageal Reflux: No Hx Renal Disease: No Hx Cancer: No Hx of HIV: No Hx Hepatitis C: No Hx MRSA: No - Vaccination History Hx Tetanus, Diphtheria Vaccination: No Hx Influenza Vaccination: Yes Hx Pneumococcal Vaccination: No - Social History Hx Tobacco Use: No Hx Chewing Tobacco Use: No Hx Alcohol Use: No Hx Substance Use: No Hx Substance Use Treatment: No Hx Depression: No Hx Physical Abuse: No Hx Emotional Abuse: No Hx Suspected Abuse: No - Female History Patient is a Female of Child Bearing Age (10 -59 yrs old): Yes Hx Last Menstrual Period: 07/02/17 Patient : Yes - 10 weeks Expected Date of Delivery:: 04/09/18 Hx Gestational Age: 10 - Triage Comment ED Triage Comment: called [facility] and told to come to [facility]. Pt had no ride to get there Family Medical History - Family History Paternal Grandparents Family History: Unknown Living Status: Unknown Hx Family Diabetes: Yes - type 2 Hx Family;Other: Ht disease Sister Living Status: Still Living Hx Family;Other: thyroid dysfunction, migraines Mother Family History: No Known Hx Family;Other: migraines, multiple births Father Living Status: Still Living Hx Family Hypertension: Yes Hx Family Diabetes: Yes Hx Family Cancer: Yes Hx Family;Other: multiple births Brother Paternal Family History: Unknown Living Status: Still Living Hx Family Cancer: Yes - bone Physical Exam - Physical Exam General Appearance: Alert, No apparent distress Eye Exam: bilateral normal Ears, Nose, Throat: hearing grossly normal, normal ENT inspection, normal pharynx Neck: full range of motion, supple, normal inspection Respiratory: lungs clear, normal breath sounds, no respiratory distress, no accessory muscle use Cardiovascular/Chest: normal peripheral pulses, regular rate, rhythm, no edema Peripheral Pulses: radial,right: 2+, radial,left: 2+, dorsalis pedis,right: 2+, dorsalis pedis,left: 2+ Gastrointestinal/Abdominal: non tender, soft Rectal Exam: deferred Back Exam: no CVA tenderness, no vertebral tenderness Extremity: normal range of motion, non-tender, normal inspection, no pedal edema Neurologic: credit operations processor II-XII nml as tested, no motor/sensory deficits, alert, normal mood/affect, oriented x 3 Skin Exam: normal color Comments: Vital Signs - 24 hr 09/14/17 19:53 Temperature 99.6 F Pulse Rate [ 94 H Left] Respiratory 18 Rate Blood Pressure 139/87 [Left Arm] O2 Sat by Pulse 98 Oximetry Progress - Progress Progress: 09/14/17 21:28 the patient is a 22-year-old female presenting to the emergency room secondary to hyperemesis gravidarum and medical noncompliance with treatment of that. The patient is moderately dehydrated with mild hypokalemia. She additionally does have some yeast in her urine. There are a few bacteria in the urine. Urine culture will be set up. She is receiving a liter of IV fluids. She is receiving antiemetics. She is receiving a small dose of IV potassium as well. She will be transferred to [facility] for management by her final inspector balance wheel, as an inpatient, of her hyperemesis. The patient appears stable for transfer at this time. - Results/Orders Results/Orders: Laboratory Tests 09/14/17 09/14/17 09/14/17 19:57 20:15 20:15 WBC 9.0 RBC 5.73 H Hgb 15.7 Hct 46.6 MCV 81.3 MCH 27.3 MCHC 33.7 RDW 14.7 H Plt Count 241 MPV 9.4 Absolute Neuts (auto) 6.80 Absolute Lymphs (auto) 1.60 Absolute Monos (auto) 0.60 Absolute Eos (auto) 0.00 Absolute Basos (auto) 0.00 Neutrophils % 75.2 Lymphocytes % 17.6 L Monocytes % 6.2 Eosinophils % 0.5 L Basophils % 0.5 Sodium Potassium Chloride Carbon Dioxide Anion Gap BUN Creatinine BUN/Creatinine Ratio Random Glucose Serum Osmolality Calcium Total Bilirubin AST ALT Alkaline Phosphatase Serum Total Protein Albumin Globulin Albumin/Globulin Ratio Amylase 88 Lipase Urine Color [place] H Urine Appearance Sl cloudy Urine pH 5.5 Ur Specific [place] >= 1.030 Urine Protein 100 H Urine Glucose (UA) Negative Urine Ketones >=160 Urine Blood Negative Urine Nitrite Negative Urine Bilirubin Large Urine Urobilinogen 4.0 H Ur Leukocyte Esterase Negative Urine RBC 1-3 Urine WBC 5-10 H Ur Epithelial Cells >50 Urine Bacteria 3+ H Urine Mucus Moderate Urine Yeast 1+ budding H 09/14/17 20:15 WBC RBC Hgb Hct MCV MCH MCHC RDW Plt Count MPV Absolute Neuts (auto) Absolute Lymphs (auto) Absolute Monos (auto) Absolute Eos (auto) Absolute Basos (auto) Neutrophils % Lymphocytes % Monocytes % Eosinophils % Basophils % Sodium 135 Potassium 3.3 L Chloride 103 Carbon Dioxide 20 L Anion Gap 15.3 BUN 16 Creatinine 0.47 L BUN/Creatinine Ratio 34.0 H Random Glucose 81 Serum Osmolality 270.3 L Calcium 9.9 Total Bilirubin 1.6 H AST 34 ALT 46 Alkaline Phosphatase 75 Serum Total Protein 8.2 Albumin 4.3 Globulin 3.9 H Albumin/Globulin Ratio 1.1 Amylase Lipase 35 Urine Color Urine Appearance Urine pH Ur Specific [place] Urine Protein Urine Glucose (UA) Urine Ketones Urine Blood Urine Nitrite Urine Bilirubin Urine Urobilinogen Ur Leukocyte Esterase Urine RBC Urine WBC Ur Epithelial Cells Urine Bacteria Urine Mucus Urine Yeast Departure - Departure Clinical Impression: Hyperemesis affecting , antepartum, Dehydration, Hypokalemia Disposition: Transfer to Hospital Home Medications: Ambulatory Orders Phenergan Suppository 09/14/17 Zofran Odt 09/14/17 Transfer to Outside Facility - Transfer Information Accepting Provider:: dr wylie Accepting Facility: [facility] Reason for Transfer: required specialist not available
[2017-09-14] MEDS ORDERED: PROMETHAZINE HCL INJ 25 MG/ML VIAL ONE (21:29)
[2017-09-14] MEDS ORDERED: SODIUM CHLORIDE 0.9% 50ML 50 ML ONE (21:29)
[2017-09-14 22:44] VITALS: BP 113/78; TEMP 99.3; O2SAT 98
== END 2017-09-14 23:00 | disposition short-term general hospital (02) ==
LOC: ER 19:19
DX: O21.1 Hyperemesis gravidarum with metabolic disturbance (principal); Z3A.10 10 weeks gestation of pregnancy
CPT/HCPCS: 36415; 80053; 81001; 82150; 83690; 85025; A4216; J2405; J2550; J3480; J7030; J7050

== ENCOUNTER 2017-10-04 20:11 | Emergency (ER) | payer OTHER ==
[2017-10-04 20:56] VITALS: TEMP 98
[2017-10-04] MEDS ORDERED: SODIUM CHLORIDE 0.9% 1000ML 1,000 ML IVS ONE (21:33)
[2017-10-04] MEDS ORDERED: ONDANSETRON INJ 4 MG/2 ML VIAL IV ONE (21:33)
--- NOTE | 2017-10-04 21:36 | ED.PDOC ---
History of Present Illness - General Chief Complaint: GI Problem Stated Complaint: N/V since yesterday, burning c urination Time Seen by Provider: 10/04/17 20:24 Information Source: patient, RN notes reviewed, Vital Signs reviewed, old records Exam Limitations: no limitations - History of Present Illness Initial Comments: Patient comes in with c/o of nausea and vomiting and not being able to keep anything down all day. She also thinks she may have a UTI. Reports she has been using Phenergan gel w/o improvement. This has been a frequent issue during her . She has follow up with OB ob10/06/17 Abdominal Pain Onset Location: other - No pain Pain Radiation: no radiation Timing/Duration: 7-24 hours Improving Factors: nothing Worsening Factors: nothing Associated Symptoms: nausea/vomiting Review of Systems - Review of Systems Constitutional: States: chills, malaise. Denies: fever Respiratory: States: no symptoms reported Cardiology: States: no symptoms reported Gastrointestinal/Abdominal: States: see HPI, nausea, vomiting. Denies: abdominal pain, constipation, diarrhea Genitourinary: States: dysuria, frequency Musculoskeletal: States: no symptoms reported Skin: States: no symptoms reported Neurological: States: no symptoms reported All other Systems: No Change from Baseline Past Medical History (General) - Patient Medical History Hx Seizures: No Hx Stroke: No Hx Dementia: No Hx Asthma: Yes Hx of COPD: No Hx Cardiac Disorders: No Hx Congestive Heart Failure: No Hx Pacemaker: No Hx Hypertension: No Hx Thyroid Disease: No Hx Diabetes: No Hx Gastroesophageal Reflux: No Hx Renal Disease: No Hx Cancer: No Hx of HIV: No Hx Hepatitis C: No Hx MRSA: No Surgical History: other - Vaccination History Hx Tetanus, Diphtheria Vaccination: No Hx Influenza Vaccination: Yes Hx Pneumococcal Vaccination: No - Social History Hx Tobacco Use: No Hx Chewing Tobacco Use: No Hx Alcohol Use: No Hx Substance Use: No Hx Substance Use Treatment: No Hx Depression: No Hx Physical Abuse: No Hx Emotional Abuse: No Hx Suspected Abuse: No - Female History Patient is a Female of Child Bearing Age (10 -59 yrs old): Yes Hx Last Menstrual Period: 08/02/17 Patient : Yes Expected Date of Delivery:: 04/09/18 Hx Gestational Age: 11 Family Medical History - Family History Paternal Grandparents Family History: Unknown Living Status: Unknown Hx Family Diabetes: Yes - type 2 Hx Family;Other: Ht disease Sister Living Status: Still Living Hx Family;Other: thyroid dysfunction, migraines Mother Family History: No Known Hx Family;Other: migraines, multiple births Father Living Status: Still Living Hx Family Hypertension: Yes Hx Family Diabetes: Yes Hx Family Cancer: Yes Hx Family;Other: multiple births Brother Paternal Family History: Unknown Living Status: Still Living Hx Family Cancer: Yes - bone Physical Exam - Physical Exam General Appearance: Alert, Comfortable, No apparent distress, Well Developed, Well Groomed, Well Nourished Eyes, Ears, Nose, Throat Exam: other - slightly dry mucous membranes Respiratory: lungs clear, normal breath sounds, no respiratory distress, no accessory muscle use Cardiovascular/Chest: regular rate, rhythm, no gallop, no murmur Gastrointestinal/Abdominal: normal bowel sounds, non tender, soft, no pulsatile mass Neurologic: alert, normal mood/affect, oriented x 3 Skin Exam: normal color, warm/dry Comments: Vital Signs 10/04/17 20:49 Temperature 98.0 F Pulse Rate [ 91 H monitor] Respiratory 16 Rate Blood Pressure 123/84 [Left Arm] O2 Sat by Pulse 98 Oximetry Progress - Progress Progress: 10/04/17 23:22 Patient reports she is feeling much better after IVF and Zofran - Results/Orders Results/Orders: Laboratory Tests 10/04/17 10/04/17 10/04/17 21:40 21:40 22:35 WBC 9.4 RBC 5.11 Hgb 13.9 Hct 41.0 MCV 80.1 L MCH 27.2 MCHC 33.9 RDW 14.8 H Plt Count 220 MPV 8.4 Absolute Neuts (auto) 7.00 H Absolute Lymphs (auto) 1.80 Absolute Monos (auto) 0.50 Absolute Eos (auto) 0.10 Absolute Basos (auto) 0.00 Neutrophils % 74.9 Lymphocytes % 18.7 L Monocytes % 5.3 Eosinophils % 0.8 L Basophils % 0.3 Sodium 135 Potassium 3.5 L Chloride 107 Carbon Dioxide 22 Anion Gap 9.5 L BUN 9 Creatinine 0.40 L BUN/Creatinine Ratio 22.5 H Random Glucose 82 Serum Osmolality 267.9 L Calcium 9.2 Total Bilirubin 0.5 AST 12 ALT 11 Alkaline Phosphatase 63 Serum Total Protein 7.4 Albumin 3.6 Globulin 3.8 H Albumin/Globulin Ratio 0.9 L Urine Color Yellow Urine Appearance Sl cloudy Urine pH 6.0 Ur Specific [place] >= 1.030 Urine Protein 30 Urine Glucose (UA) Negative Urine Ketones >=160 Urine Blood Negative Urine Nitrite Negative Urine Bilirubin Small H Urine Urobilinogen 1.0 Ur Leukocyte Esterase Negative Urine RBC 0-1 Urine WBC 5-10 H Ur Epithelial Cells 10-20 Urine Bacteria 1+ Urine Mucus Moderate Urine Yeast Rare Departure - Departure Clinical Impression: Nausea and vomiting during Time of Disposition: 23:23 Disposition: Discharge to Home or Self Care Condition: Good Departure Forms: ED Discharge - Pt. Copy, Patient Portal Self Enrollment Instructions: Nausea and Vomiting-Adult Diet: resume usual diet Activity: increase activity as tolerated Referrals: David Rodriguez MD [Primary Care Provider] - 10/06/17 Home Medications: Ambulatory Orders Phenergan Suppository 09/14/17 Zofran Odt 09/14/17
[2017-10-04 23:51] VITALS: BP 108/73; O2SAT 99
== END 2017-10-04 23:53 | disposition home or self-care (01) ==
LOC: ER 20:11
DX: O21.0 Mild hyperemesis gravidarum (principal); Z3A.00 Weeks of gestation of pregnancy not specified
CPT/HCPCS: 36415; 80053; 81001; 85025; J2405; J7030

== ENCOUNTER 2017-10-18 19:36 | Emergency (ER) | payer OTHER ==
[2017-10-18 19:48] VITALS: TEMP 99.6
--- NOTE | 2017-10-18 20:03 | ED.PDOC ---
History of Present Illness - General Chief Complaint: Respiratory Problem Stated Complaint: dry cough, asthma acting up Time Seen by Provider: 10/18/17 19:52 Source: patient Exam Limitations: no limitations - History of Present Illness Comments: Kathy Earl 22 y/o femal e stated that she had cough and wheezing the last 2 days and unable to refill her MDI .She stated doesnt need to use her mdi daily except during change in weather and presently she is 15 weeks ega. Timing/Duration: other - 3 days Cough Quality/Degree: no cough, moderate, dry cough Possible Cause: allergen exposure Improving Factors: nothing Worsening Factors: nothing Associated Symptoms: wheezing, other - see hpi Allergies/Adverse Reactions: Allergies NO KNOWN ALLERGY Allergy (Verified 10/04/17 20:56) Home Medications: Ambulatory Orders Fluticasone Propionate Inhaler [Flovent 220 MCG Inhaler] 1 puff INH BID #1 inh 10/18/17 Levalbuterol Inhaler [Xopenex Hfa 45 Mcg] 2 puff INH Q4HR PRN #1 inh 10/18/17 Vit W/ Ferrous Fumara [] 1 tab PO 10/18/17 Review of Systems - Review of Systems Constitutional: States: no symptoms reported EENTM: States: no symptoms reported Respiratory: States: see HPI Cardiology: States: no symptoms reported Gastrointestinal/Abdominal: States: no symptoms reported Genitourinary: States: see HPI Past Medical History (General) - Patient Medical History Hx Seizures: No Hx Stroke: No Hx Dementia: No Hx Asthma: Yes Hx of COPD: No Hx Cardiac Disorders: No Hx Congestive Heart Failure: No Hx Pacemaker: No Hx Hypertension: No Hx Thyroid Disease: No Hx Diabetes: No Hx Gastroesophageal Reflux: No Hx Renal Disease: No Hx Cancer: No Hx of HIV: No Hx Hepatitis C: No Hx MRSA: No Surgical History: other - c- section - Vaccination History Hx Tetanus, Diphtheria Vaccination: No Hx Influenza Vaccination: Yes Hx Pneumococcal Vaccination: No - Social History Hx Tobacco Use: No Hx Chewing Tobacco Use: No Hx Alcohol Use: No Hx Substance Use: No Hx Substance Use Treatment: No Hx Depression: No Hx Physical Abuse: No Hx Emotional Abuse: No Hx Suspected Abuse: No - Female History Hx Last Menstrual Period: 07/02/17 Patient : Yes - 15 weeks Expected Date of Delivery:: 04/09/18 Hx Gestational Age: 10 - Triage Comment ED Triage Comment: has no inhaler for her asthma, short of breath over past hour Family Medical History - Family History Paternal Grandparents Family History: Unknown Living Status: Unknown Hx Family Diabetes: Yes - type 2 Hx Family;Other: Ht disease Sister Living Status: Still Living Hx Family;Other: thyroid dysfunction, migraines Mother Family History: No Known Hx Family;Other: migraines, multiple births Father Living Status: Still Living Hx Family Hypertension: Yes Hx Family Diabetes: Yes Hx Family Cancer: Yes Hx Family;Other: multiple births Brother Paternal Family History: Unknown Living Status: Still Living Hx Family Cancer: Yes - bone Physical Exam - Physical Exam General Appearance: Alert, No apparent distress Eye Exam: bilateral normal ENT Exam: hearing grossly normal, pharynx normal Neck: non-tender, full range of motion, supple, trachea midline Respiratory: chest non-tender, no respiratory distress, wheezing Cardiovascular/Chest: normal peripheral pulses, regular rate, rhythm, no murmur Gastrointestinal/Abdominal: non tender, soft, no organomegaly Extremity: no pedal edema, no calf tenderness Neurologic: no motor/sensory deficits, alert, oriented x 3 Skin Exam: normal color, warm/dry Lymphatic: no adenopathy Progress - Progress Progress: 10/18/17 20:06 Last Vital Signs Temp 99.6 F 10/18/17 19:45 Pulse 102 H 10/18/17 19:45 Resp 18 10/18/17 19:50 BP 122/71 10/18/17 19:45 Pulse Ox 98 10/18/17 19:45 10/18/17 20:56 breathing easier after 2 neb treatment Departure - Departure Clinical Impression: Asthma Qualifiers: Asthma severity: unspecified severity Asthma complication type: with acute exacerbation Qualified Code(s): J45.901 - Unspecified asthma with (acute) exacerbation Time of Disposition: 20:57 Disposition: Discharge to Home or Self Care Condition: Good Departure Forms: ED Discharge - Pt. Copy, Patient Portal Self Enrollment Instructions: DI for Asthma -- Adult Referrals: David Rodriguez MD [Primary Care Provider] - 1-2 Weeks Prescriptions: Levalbuterol Inhaler [Xopenex Hfa 45 Mcg] 2 puff INH Q4HR PRN #1 inh PRN Reason: Wheezing Fluticasone Propionate Inhaler [Flovent 220 MCG Inhaler] 1 puff INH BID #1 inh Home Medications: Ambulatory Orders Fluticasone Propionate Inhaler [Flovent 220 MCG Inhaler] 1 puff INH BID #1 inh 10/18/17 Levalbuterol Inhaler [Xopenex Hfa 45 Mcg] 2 puff INH Q4HR PRN #1 inh 10/18/17 Vit W/ Ferrous Fumara [] 1 tab PO 10/18/17 Additional Instructions: Follow up with primary md 10/19/2017 as needed;Return to ER as needed
[2017-10-18] MEDS ORDERED: IPRATROPIUM/ALBUTEROL 3 ML VIAL NEB ONE (20:07)
[2017-10-18] MEDS ORDERED: LEVALBUTEROL NEBS 1.25 MG/3 ML VIAL NEB ONE (20:54)
[2017-10-18 21:29] VITALS: BP 118/69; O2SAT 99
== END 2017-10-18 21:32 | disposition home or self-care (01) ==
LOC: ER 19:36
DX: O99.512 Diseases of the respiratory system complicating pregnancy, second trimester (principal); J45.901 Unspecified asthma with (acute) exacerbation; Z3A.15 15 weeks gestation of pregnancy; Z79.899 Other long term (current) drug therapy
CPT/HCPCS: 94640; J7614; J7620

== ENCOUNTER 2018-02-11 21:26 | Emergency (ER) | payer OTHER ==
[2018-02-11] MEDS ORDERED: SODIUM CHLORIDE 0.9% 1000ML 1,000 ML IVS ONE (21:47)
[2018-02-11] MEDS ORDERED: ONDANSETRON ODT 8 MG TAB SL ONE (21:47)
[2018-02-11] MEDS ORDERED: cefTRIAXone SODIUM 1 GM in SODIUM CHL 0.9% 50ML MIN-BAG+ 50 ML IVPB ONE (21:47)
--- NOTE | 2018-02-11 21:52 | ED.PDOC ---
History of Present Illness - General Chief Complaint: Problem Stated Complaint: urinary burning and n/v Time Seen by Provider: 02/11/18 21:43 Source: patient Exam Limitations: no limitations - History of Present Illness Initial Comments: Patient is a 22 yo at 32 weeks who started with nausea/emesis yesterday. She states today dysuria and L flank pain. Patient denies fever or chills. She has had recurrent UTI with past pregnancies and at times in between gestations No overt abdominal pain, no contractions or vaginal bleeding. Good movement was felt today. Patient has no cough/cold symptoms. She denies constipation or diarrhea. Timing/Duration: yesterday Quality: moderate Onset Location: suprapubic, left flank Radiation: none Activites at Onset: none Prior abdominal problems: similar symptoms - with UTI in the past Sexual intercourse history: single partner Improving Factors: nothing Worsening Factors: nothing Associated Symptoms: dysuria, nausea/vomiting Allergies/Adverse Reactions: Allergies NO KNOWN ALLERGY Allergy (Verified 10/04/17 20:56) Home Medications: Ambulatory Orders Fluticasone Propionate Inhaler [Flovent 220 MCG Inhaler] 1 puff INH BID #1 inh 10/18/17 Levalbuterol Inhaler [Xopenex Hfa 45 Mcg] 2 puff INH Q4HR PRN #1 inh 10/18/17 Vit W/ Ferrous Fumara [] 1 tab PO 10/18/17 Nitrofurantoin Monohydrate Mac [Macrobid] 100 mg PO BID 14 Days #28 capsule Ondansetron [Zofran Odt] 4 mg PO Q6HRS PRN 3 Days #10 tab 02/11/18 Review of Systems - Review of Systems Constitutional: States: no symptoms reported EENTM: States: no symptoms reported Respiratory: States: no symptoms reported Cardiology: States: no symptoms reported Gastrointestinal/Abdominal: States: see HPI Genitourinary: States: see HPI Musculoskeletal: States: back pain Skin: States: no symptoms reported Past Medical History (General) - Patient Medical History Hx Seizures: No Hx Stroke: No Hx Dementia: No Hx Asthma: Yes Hx of COPD: No Hx Cardiac Disorders: No Hx Congestive Heart Failure: No Hx Pacemaker: No Hx Hypertension: No Hx Thyroid Disease: No Hx Diabetes: No Hx Gastroesophageal Reflux: No Hx Renal Disease: No Hx Cancer: No Hx of HIV: No Hx Hepatitis C: No Hx MRSA: No - Vaccination History Hx Tetanus, Diphtheria Vaccination: No Hx Influenza Vaccination: Yes Hx Pneumococcal Vaccination: No - Social History Hx Tobacco Use: No Hx Chewing Tobacco Use: No Hx Alcohol Use: No Hx Substance Use: No Hx Substance Use Treatment: No Hx Depression: No Hx Physical Abuse: No Hx Emotional Abuse: No Hx Suspected Abuse: No - Female History Hx Last Menstrual Period: 07/02/17 Patient : Yes - 15 weeks Expected Date of Delivery:: 04/09/18 Hx Gestational Age: 10 Family Medical History - Family History Paternal Grandparents Family History: Unknown Living Status: Unknown Hx Family Diabetes: Yes - type 2 Hx Family;Other: Ht disease Sister Living Status: Still Living Hx Family;Other: thyroid dysfunction, migraines Mother Family History: No Known Hx Family;Other: migraines, multiple births Father Living Status: Still Living Hx Family Hypertension: Yes Hx Family Diabetes: Yes Hx Family Cancer: Yes Hx Family;Other: multiple births Brother Paternal Family History: Unknown Living Status: Still Living Hx Family Cancer: Yes - bone Physical Exam - Physical Exam General Appearance: Comfortable, No apparent distress Eyes, Ears, Nose, Throat Exam: PERRL/EOMI, normal ENT inspection, TMs normal, pharynx normal Neck: non-tender, full range of motion Cardiovascular/Respiratory: regular rate, rhythm, no M/R/G Gastrointestinal/Abdominal: normal bowel sounds, non tender, soft - gravid with no rebound, tenderness, mild LCVA tenderness Extremity: normal range of motion, non-tender 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, alert, normal mood/affect, oriented x 3 Skin Exam: normal color Progress - Progress Progress: 02/11/18 22:22 02/11/18 21:47 Sodium Chloride 0.9% 1000ML [Ns 1000 ml] 1,000 ml IVS ONCE 02/11/18 21:52 URINE CULTURE W/COLONY COUNT Stat Laboratory Results - last 24 hr 02/11/18 02/11/18 21:45 21:55 WBC 9.1 RBC 4.52 Hgb 11.7 L Hct 34.9 L MCV 77.1 L MCH 25.8 L MCHC 33.5 RDW 13.7 Plt Count 210 MPV 8.8 Absolute Neuts (auto) 6.60 Absolute Lymphs (auto) 1.80 Absolute Monos (auto) 0.50 Absolute Eos (auto) 0.10 Absolute Basos (auto) 0.00 Neutrophils % 73.2 Lymphocytes % 19.5 L Monocytes % 5.9 Eosinophils % 0.9 L Basophils % 0.5 Urine Color Yellow Urine Appearance Sl cloudy Urine pH 6.0 Ur Specific [place] >= 1.030 Urine Protein 30 Urine Glucose (UA) Negative Urine Ketones 80 H Urine Blood Negative Urine Nitrite Negative Urine Bilirubin Small H Urine Urobilinogen 2.0 H Ur Leukocyte Esterase Negative Urine RBC 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 We discussed results and she should return to intractable nausea/emesis, temp >100.5, abdominal pain. Patient will be given Macrobid RX BID x 14 days. Zofran ODT 4 mg po q 6 hours prn # 10. Follow up with OB in 2-3 days. Rocephin and zofran given here. Departure - Departure Clinical Impression: UTI (urinary tract infection) Qualifiers: Urinary tract infection type: acute cystitis Hematuria presence: without hematuria Qualified Code(s): N30.00 - Acute cystitis without hematuria Disposition: Discharge to Home or Self Care Condition: Good Departure Forms: ED Discharge - Pt. Copy, Patient Portal Self Enrollment Instructions: DI for Urinary Tract Infection (UTI) Diet: resume usual diet Referrals: David Rodriguez MD [Primary Care Provider] - 1-2 Weeks Prescriptions: Ondansetron [Zofran Odt] 4 mg PO Q6HRS PRN 3 Days #10 tab PRN Reason: Nausea Nitrofurantoin Monohydrate Mac [Macrobid] 100 mg PO BID 14 Days #28 capsule Home Medications: Ambulatory Orders Fluticasone Propionate Inhaler [Flovent 220 MCG Inhaler] 1 puff INH BID #1 inh 10/18/17 Levalbuterol Inhaler [Xopenex Hfa 45 Mcg] 2 puff INH Q4HR PRN #1 inh 10/18/17 Vit W/ Ferrous Fumara [] 1 tab PO 10/18/17 Nitrofurantoin Monohydrate Mac [Macrobid] 100 mg PO BID 14 Days #28 capsule Ondansetron [Zofran Odt] 4 mg PO Q6HRS PRN 3 Days #10 tab 02/11/18 Additional Instructions: Return to ER for intractable n/v, temp >100.5, increase abdominal pain
[2018-02-11] MEDS ORDERED: cefTRIAXone SODIUM 1 GM VIAL ONE (21:55)
[2018-02-11] MEDS ORDERED: SODIUM CHL 0.9% 50ML MIN-BAG+ 50 ML IVPB ONE (21:55)
[2018-02-11 23:05] VITALS: BP 129/81; TEMP 98.1; O2SAT 95
== END 2018-02-11 23:19 | disposition home or self-care (01) ==
LOC: ER 21:26
DX: O23.13 Infections of bladder in pregnancy, third trimester (principal); Z3A.32 32 weeks gestation of pregnancy
CPT/HCPCS: 36415; 81001; 85025; 87086; J0696; J7030; J7050

== ENCOUNTER 2018-03-10 19:02 | Emergency (ER) | payer OTHER ==
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
[2018-03-10 19:37] VITALS: O2SAT 99
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
[2018-03-10] MEDS ORDERED: ONDANSETRON ODT 8 MG TAB SL ONE (19:58)
[2018-03-10 20:15] VITALS: BP 144/75; TEMP 97.8
== END 2018-03-10 20:15 | disposition home or self-care (01) ==
LOC: ER 19:02
DX: O9A.213 Injury, poisoning and certain other consequences of external causes complicating pregnancy, third trimester (principal); S90.32XA Contusion of left foot, initial encounter; O99.513 Diseases of the respiratory system complicating pregnancy, third trimester; J45.909 Unspecified asthma, uncomplicated; Z3A.35 35 weeks gestation of pregnancy; Z79.899 Other long term (current) drug therapy; V03.00XA Pedestrian on foot injured in collision with car, pick-up truck or van in nontraffic accident, initial encounter

== ENCOUNTER 2018-03-15 21:58 | Emergency (ER) | payer OTHER ==
[2018-03-15 22:23] VITALS: O2SAT 96
[2018-03-15] MEDS ORDERED: IPRATROPIUM/ALBUTEROL 3 ML VIAL NEB ONE (22:28)
--- NOTE | 2018-03-15 22:30 | ED.PDOC ---
History of Present Illness - General Chief Complaint: Asthma Stated Complaint: coughing, thinks asthma flared up Time Seen by Provider: 03/15/18 22:23 Source: patient Exam Limitations: no limitations - History of Present Illness Initial Comments: Patient presents with increasing dyspnea for 2 1/2 days. She has a history of asthma and says that she lost her MDI. She has also had an increasing non- productive cough and chest tightness. No wheezing. No other complaints. Timing/Duration: other - 2 1/2 days Severity: mild Improving Factors: nothing Worsening Factors: nothing Associated Symptoms: denies symptoms Allergies/Adverse Reactions: Allergies Ketorolac Tromethamine [From Toradol] Allergy (Verified 03/15/18 22:11) Home Medications: Ambulatory Orders Levalbuterol Inhaler [Xopenex Hfa 45 Mcg] 2 puff INH Q4HR PRN #1 inh 10/18/17 Vit W/ Ferrous Fumara [] 1 tab PO 10/18/17 Ondansetron [Zofran Odt] 4 mg PO Q6HRS PRN 3 Days #10 tab 02/11/18 Albuterol Inhaler [Ventolin Hfa Inhaler] 1 puff INH Q6HR PRN #1 inh 03/15/18 Review of Systems - Review of Systems Constitutional: States: no symptoms reported EENTM: States: no symptoms reported Respiratory: States: see HPI Cardiology: States: no symptoms reported Gastrointestinal/Abdominal: States: no symptoms reported Genitourinary: States: no symptoms reported Musculoskeletal: States: no symptoms reported Skin: States: no symptoms reported Neurological: States: no symptoms reported Endocrine: States: no symptoms reported Hematologic/Lymphatic: States: no symptoms reported Past Medical History (General) - Patient Medical History Hx Seizures: No Hx Stroke: No Hx Dementia: No Hx Asthma: Yes Hx of COPD: No Hx Cardiac Disorders: No Hx Congestive Heart Failure: No Hx Pacemaker: No Hx Hypertension: No Hx Thyroid Disease: No Hx Diabetes: No Hx Gastroesophageal Reflux: No Hx Renal Disease: No Hx Cancer: No Hx of HIV: No Hx Hepatitis C: No Hx MRSA: No - Vaccination History Hx Tetanus, Diphtheria Vaccination: Yes Hx Influenza Vaccination: Yes Hx Pneumococcal Vaccination: No - Social History Hx Tobacco Use: No Hx Chewing Tobacco Use: No Hx Alcohol Use: No Hx Substance Use: No Hx Substance Use Treatment: No Hx Depression: No Hx Physical Abuse: No Hx Emotional Abuse: No Hx Suspected Abuse: No - Female History Patient is a Female of Child Bearing Age (10 -59 yrs old): Yes Hx Last Menstrual Period: 07/02/17 Patient : Yes Expected Date of Delivery:: 04/09/18 Hx Gestational Age: 37 Family Medical History - Family History Paternal Grandparents Family History: Unknown Living Status: Unknown Hx Family Diabetes: Yes - type 2 Hx Family;Other: Ht disease Sister Living Status: Still Living Hx Family;Other: thyroid dysfunction, migraines Mother Family History: No Known Hx Family;Other: migraines, multiple births Father Living Status: Still Living Hx Family Hypertension: Yes Hx Family Diabetes: Yes Hx Family Cancer: Yes Hx Family;Other: multiple births Brother Paternal Family History: Unknown Living Status: Still Living Hx Family Cancer: Yes - bone Physical Exam - Physical Exam General Appearance: Alert Ears, Nose, Throat: normal ENT inspection Neck: non-tender, full range of motion, supple Respiratory: lungs clear, normal breath sounds, no respiratory distress Cardiovascular/Chest: normal peripheral pulses, regular rate, rhythm, no edema Gastrointestinal/Abdominal: normal bowel sounds, non tender, soft Progress - Progress Progress: 03/15/18 22:31 Duonebs x one. 03/15/18 23:50 Patient felt better after the duonebs. wbc was mildly elevated with no left shit. temp 99.7. Patient has not taken any tylenol or other anti-pyretics today. The lungs were clear before and after the duonebs. Due to the risks of an x-ray on the fetus and the lack of any clinical evidence or convincing laboratory evidence for pneumonia, a chest x-ray was not performed. This was discussed with the patient who voiced understanding and agreement. Care instructions given. E.R. warnings given. Questions were elicited and answered. Patient voiced understanding and agreement with the plan Departure - Departure Clinical Impression: Asthma, Asthma affecting , antepartum Disposition: Discharge to Home or Self Care Condition: Good Departure Forms: ED Discharge - Pt. Copy, Patient Portal Self Enrollment Instructions: DI for Asthma -- Adult Diet: other - as per your OB doctor Activity: other - as per your OB doctor Referrals: David Rodriguez MD [Primary Care Provider] - 1-2 Weeks Prescriptions: Albuterol Inhaler [Ventolin Hfa Inhaler] 1 puff INH Q6HR PRN #1 inh PRN Reason: Shortness Of Breath Home Medications: Ambulatory Orders Levalbuterol Inhaler [Xopenex Hfa 45 Mcg] 2 puff INH Q4HR PRN #1 inh 10/18/17 Vit W/ Ferrous Fumara [] 1 tab PO 10/18/17 Ondansetron [Zofran Odt] 4 mg PO Q6HRS PRN 3 Days #10 tab 02/11/18 Albuterol Inhaler [Ventolin Hfa Inhaler] 1 puff INH Q6HR PRN #1 inh 03/15/18
[2018-03-16 00:03] VITALS: BP 126/82; TEMP 98.4
== END 2018-03-16 00:03 | disposition home or self-care (01) ==
LOC: ER 21:58
DX: O99.513 Diseases of the respiratory system complicating pregnancy, third trimester (principal); J45.909 Unspecified asthma, uncomplicated; Z3A.36 36 weeks gestation of pregnancy
CPT/HCPCS: 36415; 80048; 85025; J7620

== ENCOUNTER 2018-04-12 00:12 | Emergency (ER) | payer OTHER ==
--- NOTE | 2018-04-12 00:29 | ED.PDOC ---
History of Present Illness - General Chief Complaint: Skin/Abrasion/Tear Stated Complaint: fluid leaking incision Time Seen by Provider: 04/12/18 00:15 Source: patient - History of Present Illness Initial Comments: Kathy Earl 22 y/o female with 06 apr 2018 came to er stating noted leaking form incision site.Denies fever ;pain,chills.Had previous in the past. Timing/Duration: yesterday Severity: moderate Location: torso Improving Factors: nothing Worsening Factors: nothing Associated Symptoms: other - see hpi Allergies/Adverse Reactions: Allergies Ketorolac Tromethamine [From Toradol] Allergy (Verified 03/15/18 22:11) Home Medications: Ambulatory Orders Levalbuterol Inhaler [Xopenex Hfa 45 Mcg] 2 puff INH Q4HR PRN #1 inh 10/18/17 Albuterol Inhaler [Ventolin Hfa Inhaler] 1 puff INH Q6HR PRN #1 inh 03/15/18 Cephalexin [Keflex] 750 mg PO BID 10 Days #20 cap 04/12/18 Metronidazole 500 mg PO BID 7 Days #14 tab 04/12/18 Review of Systems - Review of Systems Constitutional: States: no symptoms reported EENTM: States: no symptoms reported Respiratory: States: no symptoms reported Skin: States: see HPI All other Systems: Reviewed and Negative, No Change from Baseline Past Medical History (General) - Patient Medical History Hx Seizures: No Hx Stroke: No Hx Dementia: No Hx Asthma: Yes Hx of COPD: No Hx Cardiac Disorders: No Hx Congestive Heart Failure: No Hx Pacemaker: No Hx Hypertension: No Hx Thyroid Disease: No Hx Diabetes: No Hx Gastroesophageal Reflux: No Hx Renal Disease: No Hx Cancer: No Hx of HIV: No Hx Hepatitis C: No Hx MRSA: No Surgical History: other - c- section - Vaccination History Hx Tetanus, Diphtheria Vaccination: Yes Hx Influenza Vaccination: Yes Hx Pneumococcal Vaccination: No - Social History Hx Tobacco Use: No Hx Chewing Tobacco Use: No Hx Alcohol Use: No Hx Substance Use: No Hx Substance Use Treatment: No Hx Depression: No Hx Physical Abuse: No Hx Emotional Abuse: No Hx Suspected Abuse: No - Female History Hx Last Menstrual Period: 07/02/17 Patient : Yes Expected Date of Delivery:: 04/09/18 Hx Gestational Age: 37 Family Medical History - Family History Paternal Grandparents Family History: Unknown Living Status: Unknown Hx Family Diabetes: Yes - type 2 Hx Family;Other: Ht disease Sister Living Status: Still Living Hx Family;Other: thyroid dysfunction, migraines Mother Family History: No Known Hx Family;Other: migraines, multiple births Father Living Status: Still Living Hx Family Hypertension: Yes Hx Family Diabetes: Yes Hx Family Cancer: Yes Hx Family;Other: multiple births Brother Paternal Family History: Unknown Living Status: Still Living Hx Family Cancer: Yes - bone Physical Exam - Physical Exam General Appearance: Alert, Comfortable, No apparent distress Eyes, Ears, Nose, Throat Exam: normal ENT inspection, pharynx normal Neck: non-tender, supple Cardiovascular/Chest: normal peripheral pulses, regular rate, rhythm, no murmur Respiratory: lungs clear, normal breath sounds Gastrointestinal/Abdominal: normal bowel sounds, non tender, soft Back Exam: normal inspection, no CVA tenderness Extremity: no pedal edema, no calf tenderness Neurologic: alert, oriented x 3 Skin Exam: warm/dry Skin Problem Location: other - lower abdominal area Skin Character: drainage - serosanginous Lymphatic: no adenopathy Progress - Progress Progress: 04/12/18 00:33 Vital Signs - 8 hr 04/12/18 00:28 Temperature 98.6 F Pulse Rate [ 96 H Left] Respiratory 16 Rate Blood Pressure 135/84 [Left Arm] O2 Sat by Pulse 97 Oximetry Departure - Departure Clinical Impression: Seroma infection, postoperative Time of Disposition: 00:34 Disposition: Discharge to Home or Self Care Condition: Good Departure Forms: ED Discharge - Pt. Copy, Patient Portal Self Enrollment Instructions: DI for Wound Infection Referrals: David Rodriguez MD [Primary Care Provider] - 1-2 Weeks Prescriptions: Cephalexin [Keflex] 750 mg PO BID 10 Days #20 cap Metronidazole 500 mg PO BID 7 Days #14 tab Home Medications: Ambulatory Orders Levalbuterol Inhaler [Xopenex Hfa 45 Mcg] 2 puff INH Q4HR PRN #1 inh 10/18/17 Albuterol Inhaler [Ventolin Hfa Inhaler] 1 puff INH Q6HR PRN #1 inh 03/15/18 Cephalexin [Keflex] 750 mg PO BID 10 Days #20 cap 04/12/18 Metronidazole 500 mg PO BID 7 Days #14 tab 05/14/18 Additional Instructions: Followup with primary Md call for appointment MISSY
[2018-04-12 00:32] VITALS: BP 135/84; TEMP 98.6; O2SAT 97
[2018-04-12] MEDS ORDERED: metroNIDAZOLE 500 MG TAB PO ONE (00:33)
[2018-04-12] MEDS ORDERED: CEPHALEXIN SUSPENSION 250 MG/5 ML 100ML BOTTLE PO ONE (00:33)
[2018-04-12] MEDS ORDERED: CEPHALEXIN MONOHYDRATE 500 MG CAP PO ONE (00:35)
== END 2018-04-12 00:43 | disposition home or self-care (01) ==
LOC: ER 00:12
DX: O86.0 Infection of obstetric surgical wound (principal)

== ENCOUNTER 2018-06-19 19:56 | Emergency (ER) | payer OTHER ==
[2018-06-19] MEDS ORDERED: HYOSCYAMINE SULFATE 0.5 MG/ML VIAL IV ONE (20:22)
--- NOTE | 2018-06-19 20:26 | ED.PDOC ---
History of Present Illness - General Chief Complaint: Problem Stated Complaint: bilateral flank pain/lower abdomen pain Time Seen by Provider: 06/19/18 20:20 Source: patient Exam Limitations: no limitations - History of Present Illness Initial Comments: LEFT SIDED FLANK PAIN ONSET TWO DAYS AGO. DENIES FEVER, CHILLS OR DYSURIA. Timing/Duration: yesterday Quality: moderate Onset Location: left flank Radiation: periumbilical Prior abdominal problems: none Improving Factors: nothing Worsening Factors: nothing Associated Symptoms: abdominal pain Allergies/Adverse Reactions: Allergies Ketorolac Tromethamine [From Toradol] Allergy (Verified 06/19/18 20:30) Home Medications: Ambulatory Orders Levalbuterol Inhaler [Xopenex Hfa 45 Mcg] 2 puff INH Q4HR PRN #1 inh 10/18/17 Albuterol Inhaler [Ventolin Hfa Inhaler] 1 puff INH Q6HR PRN #1 inh 03/15/18 Cephalexin [Keflex] 750 mg PO BID 10 Days #20 cap 04/12/18 Metronidazole 500 mg PO BID 7 Days #14 tab 04/12/18 Hyoscyamine Sulfate [Levsin] 0.125 mg PO Q6HRS #15 tab 06/19/18 Review of Systems - Review of Systems Constitutional: States: no symptoms reported EENTM: States: no symptoms reported Respiratory: States: no symptoms reported Cardiology: States: no symptoms reported Gastrointestinal/Abdominal: States: abdominal pain Genitourinary: States: pain Musculoskeletal: States: no symptoms reported Skin: States: no symptoms reported Neurological: States: no symptoms reported Endocrine: States: no symptoms reported Hematologic/Lymphatic: States: no symptoms reported Past Medical History (General) - Patient Medical History Hx Seizures: No Hx Stroke: No Hx Dementia: No Hx Asthma: Yes Hx of COPD: No Hx Cardiac Disorders: No Hx Congestive Heart Failure: No Hx Pacemaker: No Hx Hypertension: No Hx Thyroid Disease: No Hx Diabetes: No Hx Gastroesophageal Reflux: No Hx Renal Disease: No Hx Cancer: No Hx of HIV: No Hx Hepatitis C: No Hx MRSA: No - Vaccination History Hx Tetanus, Diphtheria Vaccination: Yes Hx Influenza Vaccination: Yes Hx Pneumococcal Vaccination: No - Social History Hx Tobacco Use: No Hx Chewing Tobacco Use: No Hx Alcohol Use: No Hx Substance Use: No Hx Substance Use Treatment: No Hx Depression: No Hx Physical Abuse: No Hx Emotional Abuse: No Hx Suspected Abuse: No - Female History Hx Last Menstrual Period: 07/02/17 Patient : Yes Expected Date of Delivery:: 04/09/18 Hx Gestational Age: 37 Family Medical History - Family History Paternal Grandparents Family History: Unknown Living Status: Unknown Hx Family Diabetes: Yes - type 2 Hx Family;Other: Ht disease Sister Living Status: Still Living Hx Family;Other: thyroid dysfunction, migraines Mother Family History: No Known Hx Family;Other: migraines, multiple births Father Living Status: Still Living Hx Family Hypertension: Yes Hx Family Diabetes: Yes Hx Family Cancer: Yes Hx Family;Other: multiple births Brother Paternal Family History: Unknown Living Status: Still Living Hx Family Cancer: Yes - bone Physical Exam - Physical Exam General Appearance: Alert, No apparent distress, Well Developed, Well Groomed, Well Hydrated, Well Nourished Neck: non-tender, full range of motion, supple, normal inspection Cardiovascular/Respiratory: regular rate, rhythm, normal peripheral pulses, no JVD Gastrointestinal/Abdominal: normal bowel sounds, non tender, soft, no organomegaly, no pulsatile mass Rectal Exam: deferred Back Exam: CVA tenderness (L) Extremity: normal range of motion Neurologic: no motor/sensory deficits, normal mood/affect, oriented x 3 Skin Exam: normal color Progress - Progress Progress: 06/19/18 21:27 REASSESSED: FEELS MUCH BETTER. HCG IS NEGATIVE, REST OF THE LAB IS ESSENTIALLY NEGATIVE. Departure - Departure Clinical Impression: Abdominal pain Qualifiers: Abdominal location: generalized Qualified Code(s): R10.84 - Generalized abdominal pain Time of Disposition: 21:28 Disposition: Discharge to Home or Self Care Condition: Good Departure Forms: ED Discharge - Pt. Copy, Patient Portal Self Enrollment Instructions: Acute Abdomen (Belly Pain), Adult (DC) Diet: resume usual diet Referrals: David Rodriguez MD [Primary Care Provider] - 1-2 Weeks Prescriptions: Hyoscyamine Sulfate [Levsin] 0.125 mg PO Q6HRS #15 tab Home Medications: Ambulatory Orders Levalbuterol Inhaler [Xopenex Hfa 45 Mcg] 2 puff INH Q4HR PRN #1 inh 10/18/17 Albuterol Inhaler [Ventolin Hfa Inhaler] 1 puff INH Q6HR PRN #1 inh 03/15/18 Cephalexin [Keflex] 750 mg PO BID 10 Days #20 cap 04/12/18 Metronidazole 500 mg PO BID 7 Days #14 tab 04/12/18 Hyoscyamine Sulfate [Levsin] 0.125 mg PO Q6HRS #15 tab 06/19/18
[2018-06-21 17:46] VITALS: BP 140/87; TEMP 98.9; O2SAT 98
== END 2018-06-19 21:41 | disposition home or self-care (01) ==
LOC: ER 19:56
DX: R10.84 Generalized abdominal pain (principal); J45.909 Unspecified asthma, uncomplicated; Z79.899 Other long term (current) drug therapy

== ENCOUNTER 2018-09-01 18:52 | Emergency (ER) | payer MEDICAID, OTHER ==
[2018-09-01 19:23] VITALS: O2SAT 100
--- NOTE | 2018-09-01 19:37 | ED.PDOC ---
History of Present Illness - General Chief Complaint: GI Problem Stated Complaint: left sided pain, nausea x4days Time Seen by Provider: 09/01/18 19:33 Information Source: patient Exam Limitations: no limitations - History of Present Illness Initial Comments: iNTERMITTANT LLQ abd pain x 4 days with nausea Abdominal Pain Onset Location: LLQ Pain Radiation: no radiation Quality: moderate, cramping, intermittent Timing/Duration: days - four Improving Factors: nothing Worsening Factors: nothing Associated Symptoms: fatigue, nausea/vomiting Review of Systems - Review of Systems Constitutional: States: malaise. Denies: chills, fever EENTM: Denies: no symptoms reported Respiratory: States: cough. Denies: short of breath Cardiology: Denies: chest pain Gastrointestinal/Abdominal: States: abdominal pain, nausea, vomiting. Denies: diarrhea Genitourinary: States: other - LMP mid Jul. Denies: dysuria, frequency Musculoskeletal: Denies: back pain Skin: Denies: rash Neurological: Denies: headache, numbness, paresthesia Endocrine: States: no symptoms reported Hematologic/Lymphatic: States: no symptoms reported Past Medical History (General) - Patient Medical History Hx Seizures: No Hx Stroke: No Hx Dementia: No Hx Asthma: Yes Hx of COPD: No Hx Cardiac Disorders: No Hx Congestive Heart Failure: No Hx Pacemaker: No Hx Hypertension: No Hx Thyroid Disease: No Hx Diabetes: No Hx Gastroesophageal Reflux: No Hx Renal Disease: No Hx Cancer: No Hx of HIV: No Hx Hepatitis C: No Hx MRSA: No Surgical History: other - Vaccination History Hx Tetanus, Diphtheria Vaccination: Yes Hx Influenza Vaccination: Yes Hx Pneumococcal Vaccination: No - Social History Hx Tobacco Use: Yes Hx Chewing Tobacco Use: No Hx Alcohol Use: No Hx Substance Use: No Hx Substance Use Treatment: No Hx Depression: No Hx Physical Abuse: No Hx Emotional Abuse: No Hx Suspected Abuse: No - Female History Hx Last Menstrual Period: 07/02/17 Patient : Yes Expected Date of Delivery:: 04/09/18 Hx Gestational Age: 37 - Triage Comment ED Triage Comment: Pt report having left sided quad pain and nausea x4 days off and on. No vomiting. Pt also concerned of possibily being PG. LMP 08/12/18. Family Medical History - Family History Paternal Grandparents Family History: Unknown Living Status: Unknown Hx Family Diabetes: Yes - type 2 Hx Family;Other: Ht disease Sister Living Status: Still Living Hx Family;Other: thyroid dysfunction, migraines Mother Family History: No Known Hx Family;Other: migraines, multiple births Father Living Status: Still Living Hx Family Hypertension: Yes Hx Family Diabetes: Yes Hx Family Cancer: Yes Hx Family;Other: multiple births Brother Paternal Family History: Unknown Living Status: Still Living Hx Family Cancer: Yes - bone Physical Exam - Physical Exam General Appearance: Alert, Comfortable Eyes, Ears, Nose, Throat Exam: PERRL/EOMI, pharynx normal Neck: non-tender, full range of motion, normal inspection Respiratory: no respiratory distress, rhonchi Cardiovascular/Chest: normal peripheral pulses, regular rate, rhythm, no edema Peripheral Pulses: No deficit Gastrointestinal/Abdominal: normal bowel sounds, soft, tenderness - epigastric more than LLQ Skin Exam: normal color, warm/dry Lymphatic: no adenopathy Departure - Departure Clinical Impression: Abdominal pain Qualifiers: Abdominal location: left lower quadrant Qualified Code(s): R10.32 - Left lower quadrant pain Disposition: Discharge to Home or Self Care Condition: Fair Departure Forms: ED Discharge - Pt. Copy, Patient Portal Self Enrollment Referrals: David Rodriguez MD [Primary Care Provider] - 1-2 Weeks Prescriptions: Hyoscyamine Sulfate [Levsin/Sl] 0.125 mg SL Q6HR PRN #15 sub PRN Reason: Abdominal Cramping Ondansetron [Zofran Odt] 4 mg PO Q6HR PRN #15 tab PRN Reason: Nausea Home Medications: Ambulatory Orders Levalbuterol Inhaler [Xopenex Hfa 45 Mcg] 2 puff INH Q4HR PRN #1 inh 10/18/17 Albuterol Inhaler [Ventolin Hfa Inhaler] 1 puff INH Q6HR PRN #1 inh 03/15/18 Cephalexin [Keflex] 750 mg PO BID 10 Days #20 cap 04/12/18 Metronidazole 500 mg PO BID 7 Days #14 tab 04/12/18 Hyoscyamine Sulfate [Levsin] 0.125 mg PO Q6HRS #15 tab 06/19/18 Hyoscyamine Sulfate [Levsin/Sl] 0.125 mg SL Q6HR PRN #15 sub 09/01/18 Ondansetron [Zofran Odt] 4 mg PO Q6HR PRN #15 tab 09/01/18
[2018-09-01] MEDS ORDERED: HYOSCYAMINE SULFATE 0.5 MG/ML VIAL IV ONE (20:27)
[2018-09-01] MEDS ORDERED: ONDANSETRON INJ 4 MG/2 ML VIAL IV ONE (20:27)
[2018-09-01] MEDS ORDERED: HYOSCYAMINE SULFATE 0.5 MG/ML VIAL IM ONE (20:38)
[2018-09-01] MEDS ORDERED: ONDANSETRON INJ 4 MG/2 ML VIAL IM ONE (20:38)
[2018-09-01 22:08] VITALS: BP 106/78; TEMP 98.7
== END 2018-09-01 22:08 | disposition home or self-care (01) ==
LOC: ER 18:52
DX: R10.32 Left lower quadrant pain (principal); R11.2 Nausea with vomiting, unspecified; J45.909 Unspecified asthma, uncomplicated; Z87.891 Personal history of nicotine dependence
CPT/HCPCS: 80053; 81001; 84703; 85025; J2405

== ENCOUNTER 2018-11-27 00:29 | Emergency (ER) | payer MEDICAID ==
[2018-11-27 00:40] VITALS: BP 132/86; TEMP 98; O2SAT 99
--- NOTE | 2018-11-27 00:51 | ED.PDOC ---
History of Present Illness - General Chief Complaint: Lower Extremity Injury Stated Complaint: right foot pain x 1 day Time Seen by Provider: 11/27/18 00:46 Source: patient Exam Limitations: no limitations - History of Present Illness Initial Comments: pt kicked a recliner 30 hrs ago Pain - Lower Extremity: moderate: Right Foot Method of Injury: direct blow Improving Factors: immobilization Worsening Factors: movement Allergies/Adverse Reactions: Allergies Ketorolac Tromethamine [From Toradol] Allergy (Verified 06/19/18 20:30) Home Medications: Ambulatory Orders Tramadol HCl 50 mg PO Q4HR PRN #15 tab 11/27/18 Review of Systems - Review of Systems Constitutional: States: no symptoms reported EENTM: States: no symptoms reported Respiratory: States: no symptoms reported Cardiology: States: no symptoms reported Gastrointestinal/Abdominal: States: no symptoms reported Genitourinary: States: no symptoms reported Musculoskeletal: States: other - pain in R toes 2-4 Skin: States: no symptoms reported Neurological: States: tingling - to R toes Past Medical History (General) - Patient Medical History Hx Seizures: No Hx Stroke: No Hx Dementia: No Hx Asthma: No Hx of COPD: No Hx Cardiac Disorders: No Hx Congestive Heart Failure: No Hx Pacemaker: No Hx Hypertension: No Hx Thyroid Disease: No Hx Diabetes: No Hx Gastroesophageal Reflux: No Hx Renal Disease: No Hx Cancer: No Hx of HIV: No Hx Hepatitis C: No Hx MRSA: No - Vaccination History Hx Tetanus, Diphtheria Vaccination: Yes Hx Influenza Vaccination: No Hx Pneumococcal Vaccination: No Immunizations Up to Date: No - Social History Hx Tobacco Use: Yes Hx Chewing Tobacco Use: No Hx Alcohol Use: No Hx Substance Use: No Hx Substance Use Treatment: No Hx Depression: No Feels Threatened In Home Enviroment: No Feels Threatened In a Relationship: No Hx Physical Abuse: No Hx Emotional Abuse: No Hx Suspected Abuse: No - Female History Patient is a Female of Child Bearing Age (10 -59 yrs old): Yes Hx Last Menstrual Period: 07/02/17 Patient : No Expected Date of Delivery:: 04/09/18 Hx Gestational Age: 37 Family Medical History - Family History Paternal Grandparents Family History: Unknown Living Status: Unknown Hx Family Diabetes: Yes - type 2 Hx Family;Other: Ht disease Sister Living Status: Still Living Hx Family;Other: thyroid dysfunction, migraines Mother Family History: No Known Hx Family;Other: migraines, multiple births Father Living Status: Still Living Hx Family Hypertension: Yes Hx Family Diabetes: Yes Hx Family Cancer: Yes Hx Family;Other: multiple births Brother Paternal Family History: Unknown Living Status: Still Living Hx Family Asthma: No Hx Family Congestive Heart Failure: No Hx Family Hypertension: No Hx Family Cancer: Yes - bone Physical Exam - Physical Exam General Appearance: Alert, Unkempt Knee: normal inspection, non-tender, no evidence of injury Ankle: normal inspection, normal ROM Foot: limited ROM, other - Tender toes 2-4 and dorsum of foot. No swelling or bruising or deformity Neuro/Tendon: normal sensation Mental Status: alert Skin: normal color, warm/dry Departure - Departure Clinical Impression: Contusion, toes Qualifiers: Encounter type: initial encounter Toe: lesser toe Damage to nail status: without damage Laterality: right Qualified Code(s): S90.121A - Contusion of right lesser toe(s) without damage to nail, initial encounter Disposition: Discharge to Home or Self Care Departure Forms: ED Discharge - Pt. Copy, Patient Portal Self Enrollment Referrals: David Rodriguez MD [Primary Care Provider] - 1-2 Weeks Prescriptions: Tramadol HCl 50 mg PO Q4HR PRN #15 tab PRN Reason: Moderate Pain Home Medications: Ambulatory Orders Tramadol HCl 50 mg PO Q4HR PRN #15 tab 11/27/18
--- NOTE | 2018-11-27 01:04 | RAD ---
RIGHT FOOT, THREE VIEWS. 11/27/2018 HISTORY: Pain. COMPARISON: None. TECHNIQUE: AP, lateral, and oblique views of right foot. FINDINGS: No acute fracture. No dislocation. Joint space are maintained. Normal bone mineralization. Unremarkable soft tissues. IMPRESSION: 1. Negative right foot. Electronically signed by: Sandra Burch DO 11/27/2018 1:03 AM [facility]
== END 2018-11-27 01:14 | disposition home or self-care (01) ==
LOC: ER 00:29
DX: S90.121A Contusion of right lesser toe(s) without damage to nail, initial encounter (principal); Z88.8 Allergy status to other drugs, medicaments and biological substances; Z87.891 Personal history of nicotine dependence; W22.09XA Striking against other stationary object, initial encounter; Y92.9 Unspecified place or not applicable

== ENCOUNTER 2019-01-17 22:10 | Emergency (ER) | payer MEDICAID ==
[2019-01-17] MEDS ORDERED: PROMETHAZINE HCL INJ 25 MG/ML VIAL IM PRN (22:59)
--- NOTE | 2019-01-17 23:04 | ED.PDOC ---
History of Present Illness - General Chief Complaint: Abdominal Pain Stated Complaint: N/V, lower abdomen pain since this afternoon Time Seen by Provider: 01/17/19 22:54 Information Source: patient - History of Present Illness Initial Comments: VOMITING, BILATERAL FLANK PAIN, THINKS SHE MIGHT BE . SHE STARTED WITH VOMITING TODAY. Abdominal Pain Onset Location: suprapubic, flank Pain Radiation: no radiation Quality: mild Timing/Duration: 24 hours Improving Factors: nothing Worsening Factors: nothing Associated Symptoms: fever/chills Review of Systems - Review of Systems Constitutional: States: chills, fever, malaise EENTM: States: no symptoms reported Respiratory: States: no symptoms reported Cardiology: States: no symptoms reported Gastrointestinal/Abdominal: States: nausea, vomiting Genitourinary: States: dysuria Musculoskeletal: States: no symptoms reported Skin: States: no symptoms reported Neurological: States: no symptoms reported Endocrine: States: no symptoms reported Hematologic/Lymphatic: States: no symptoms reported Past Medical History (General) - Patient Medical History Hx Seizures: No Hx Stroke: No Hx Dementia: No Hx Asthma: Yes Hx of COPD: No Hx Cardiac Disorders: No Hx Congestive Heart Failure: No Hx Pacemaker: No Hx Hypertension: No Hx Thyroid Disease: No Hx Diabetes: No Hx Gastroesophageal Reflux: No Hx Renal Disease: No Hx Cancer: No Hx of HIV: No Hx Hepatitis C: No Hx MRSA: No - Vaccination History Hx Tetanus, Diphtheria Vaccination: Yes Hx Influenza Vaccination: No Hx Pneumococcal Vaccination: No - Social History Hx Tobacco Use: Yes Hx Chewing Tobacco Use: No Hx Alcohol Use: No Hx Substance Use: No Hx Substance Use Treatment: No Hx Depression: No Hx Physical Abuse: No Hx Emotional Abuse: No Hx Suspected Abuse: No - Female History Hx Last Menstrual Period: 07/02/17 Patient : No Expected Date of Delivery:: 04/09/18 Hx Gestational Age: 37 Family Medical History - Family History Paternal Grandparents Family History: Unknown Living Status: Unknown Hx Family Diabetes: Yes - type 2 Hx Family;Other: Ht disease Sister Living Status: Still Living Hx Family;Other: thyroid dysfunction, migraines Mother Family History: No Known Hx Family;Other: migraines, multiple births Father Living Status: Still Living Hx Family Hypertension: Yes Hx Family Diabetes: Yes Hx Family Cancer: Yes Hx Family;Other: multiple births Brother Paternal Family History: Unknown Living Status: Still Living Hx Family Asthma: No Hx Family Congestive Heart Failure: No Hx Family Hypertension: No Hx Family Cancer: Yes - bone Physical Exam - Physical Exam General Appearance: Alert, Well Developed, Well Groomed Eyes, Ears, Nose, Throat Exam: PERRL/EOMI, TMs normal Neck: non-tender, supple Respiratory: chest non-tender, normal breath sounds, no respiratory distress Cardiovascular/Chest: normal peripheral pulses, regular rate, rhythm, no edema Gastrointestinal/Abdominal: normal bowel sounds, non tender, soft, no organomegaly, no pulsatile mass Back Exam: normal inspection, no CVA tenderness Extremity: normal range of motion, non-tender Neurologic: no motor/sensory deficits, oriented x 3 Lymphatic: no adenopathy Progress - Progress Progress: 01/18/19 00:30 01/17/19 22:59 Promethazine HCl Inj [Phenergan Inj] 25 mg IM Q4H PRN Laboratory Results Urine Color Yellow (Yellow) 01/17/19 23:28 Urine Appearance Clear (Clear) 01/17/19 23:28 Urine pH 7.0 (4.5-7.8) 01/17/19 23:28 Ur Specific [place] 1.025 (1.005-1.030) 01/17/19 23:28 Urine Protein Negative mg/dL 01/17/19 23:28 Urine Glucose (UA) Negative mg/dL (Negative) 01/17/19 23:28 Urine Ketones Trace mg/dL (NEGATIVE) 01/17/19 23:28 Urine Blood Negative (Negative) 01/17/19 23:28 Urine Nitrite Negative 01/17/19 23:28 Urine Bilirubin Negative (NEGATIVE) 01/17/19 23:28 Urine Urobilinogen 0.2 mg/dL (0.2-1.0) 01/17/19 23:28 Ur Leukocyte Esterase Negative (Negative) 01/17/19 23:28 Urine RBC 0 /hpf 01/17/19 23:28 Urine WBC 0 /hpf 01/17/19 23:28 Ur Epithelial Cells 0 /hpf 01/17/19 23:28 Urine Bacteria 0 01/17/19 23:28 Urine HCG, Qual Negative 01/17/19 23:01 Departure - Departure Clinical Impression: Vomiting Qualifiers: Vomiting type: bilious vomiting Nausea presence: with nausea Qualified Code(s): R11.14 - Bilious vomiting Time of Disposition: 00:30 Disposition: Discharge to Home or Self Care Condition: Good Departure Forms: ED Discharge - Pt. Copy, Patient Portal Self Enrollment Instructions: Nausea and Vomiting, Adult (DC) Referrals: David Rodriguez MD [Primary Care Provider] - 1-2 Weeks Prescriptions: Ondansetron HCl [Zofran] 4 mg PO Q8HRS #10 tab Home Medications: Ambulatory Orders Tramadol HCl 50 mg PO Q4HR PRN #15 tab 11/27/18 Ondansetron HCl [Zofran] 4 mg PO Q8HRS #10 tab 01/18/19
[2019-01-18 00:42] VITALS: BP 129/81; TEMP 99.1; O2SAT 97
== END 2019-01-18 00:42 | disposition home or self-care (01) ==
LOC: ER 22:10
DX: R11.2 Nausea with vomiting, unspecified (principal); J45.909 Unspecified asthma, uncomplicated; Z87.891 Personal history of nicotine dependence; Z32.02 Encounter for pregnancy test, result negative
CPT/HCPCS: 81001; 81025; J2550

== ENCOUNTER 2019-03-24 21:27 | Emergency (ER) | payer MEDICAID ==
--- NOTE | 2019-03-24 21:46 | ED.PDOC ---
History of Present Illness - General Chief Complaint: GI Problem Stated Complaint: dizzy,n/v Time Seen by Provider: 03/24/19 21:46 Source: patient Exam Limitations: no limitations - History of Present Illness Initial Comments: Kathy Mcpherson 23 y/o female came to ER feeling dizzy and had 2 episodes of vomiting starting yesterday.Denies fever ,chills dysuria but had left earache y esterday but better.also denies ringing in ears and blurry vision,achy throat. Timing/Duration: other - ! 1/2 days Severity: moderate Improving Factors: rest Worsening Factors: nothing Associated Symptoms: other - see hpi Allergies/Adverse Reactions: Allergies Ketorolac Tromethamine [From Toradol] Allergy (Verified 01/17/19 22:31) Home Medications: Ambulatory Orders Tramadol HCl 50 mg PO Q4HR PRN #15 tab 11/27/18 Ondansetron HCl [Zofran] 4 mg PO Q8HRS #10 tab 01/18/19 Meclizine HCl [Meclizine 25] 25 mg PO Q4HR PRN #10 tab 03/24/19 predniSONE 10 mg PO BID #10 tab 03/24/19 Review of Systems - Review of Systems Constitutional: States: no symptoms reported EENTM: States: no symptoms reported Respiratory: States: no symptoms reported Gastrointestinal/Abdominal: States: see HPI Genitourinary: States: no symptoms reported Musculoskeletal: States: no symptoms reported Neurological: States: other - dizziness Past Medical History (General) - Patient Medical History Hx Seizures: No Hx Stroke: No Hx Dementia: No Hx Asthma: Yes Hx of COPD: No Hx Cardiac Disorders: No Hx Congestive Heart Failure: No Hx Pacemaker: No Hx Hypertension: No Hx Thyroid Disease: No Hx Diabetes: No Hx Gastroesophageal Reflux: No Hx Renal Disease: No Hx Cancer: No Hx of HIV: No Hx Hepatitis C: No Hx MRSA: No Surgical History: other - - Vaccination History Hx Tetanus, Diphtheria Vaccination: Yes Hx Influenza Vaccination: No Hx Pneumococcal Vaccination: No - Social History Hx Tobacco Use: Yes Hx Chewing Tobacco Use: No Hx Alcohol Use: No Hx Substance Use: No Hx Substance Use Treatment: No Hx Depression: No Hx Physical Abuse: No Hx Emotional Abuse: No Hx Suspected Abuse: No - Female History Patient is a Female of Child Bearing Age (10 -59 yrs old): Yes Hx Last Menstrual Period: 03/17/19 Patient : No Family Medical History - Family History Paternal Grandparents Family History: Unknown Living Status: Unknown Hx Family Diabetes: Yes - type 2 Hx Family;Other: Ht disease Sister Living Status: Still Living Hx Family;Other: thyroid dysfunction, migraines Mother Family History: No Known Hx Family;Other: migraines, multiple births Father Living Status: Still Living Hx Family Hypertension: Yes Hx Family Diabetes: Yes Hx Family Cancer: Yes Hx Family;Other: multiple births Brother Paternal Family History: Unknown Living Status: Still Living Hx Family Asthma: No Hx Family Congestive Heart Failure: No Hx Family Hypertension: No Hx Family Cancer: Yes - bone Physical Exam - Physical Exam General Appearance: Alert, No apparent distress Eye Exam: bilateral normal Ears, Nose, Throat: hearing grossly normal, normal ENT inspection, normal pharynx Neck: full range of motion, supple, normal inspection Respiratory: chest non-tender, lungs clear, normal breath sounds, no respiratory distress Cardiovascular/Chest: normal peripheral pulses, regular rate, rhythm, no murmur Peripheral Pulses: radial,right: 2+, radial,left: 2+ Gastrointestinal/Abdominal: non tender, soft, no organomegaly Back Exam: no CVA tenderness, no vertebral tenderness Extremity: no pedal edema, no calf tenderness 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, no motor/sensory deficits, alert, oriented x 3, other - negative Romberg test Skin Exam: normal color, warm/dry Lymphatic: no adenopathy Progress - Progress Progress: 03/24/19 22:45 Vital Signs - 8 hr 03/24/19 21:44 Temperature 99.4 F Pulse Rate [ 102 H left] Respiratory 18 Rate Blood Pressure 137/94 [left] O2 Sat by Pulse 96 Oximetry - Results/Orders Results/Orders: 03/24/19 21:47 IV Care:Saline Lock per Protoc QSHIFT Lactated Ringers [Lr] 1,000 ml IVS ONCE Laboratory Results - last 24 hr 03/24/19 03/24/19 03/24/19 09:50 09:50 21:30 WBC 8.5 RBC 5.34 Hgb 12.6 Hct 39.1 MCV 73.1 L MCH 23.5 L MCHC 32.1 L RDW 17.6 H Plt Count 253 MPV 8.9 Absolute Neuts (auto) 4.70 Absolute Lymphs (auto) 2.80 Absolute Monos (auto) 0.60 Absolute Eos (auto) 0.20 Absolute Basos (auto) 0.10 Neutrophils % 55.3 Lymphocytes % 33.1 Monocytes % 7.5 Eosinophils % 2.8 Basophils % 1.3 Normal RBC Morphology 2+hypochromia Sodium 138 Potassium 3.8 Chloride 108 Carbon Dioxide 21 Anion Gap 12.8 BUN 15 Creatinine 0.70 BUN/Creatinine Ratio 21.4 H Random Glucose 93 Serum Osmolality 276.2 Calcium 9.0 Total Bilirubin 0.2 AST 18 ALT 16 Alkaline Phosphatase 72 Serum Total Protein 7.2 Albumin 4.1 Globulin 3.1 Albumin/Globulin Ratio 1.3 Lipase 32 Urine Color Urine Appearance Urine pH Ur Specific [place] Urine Protein Urine Glucose (UA) Urine Ketones Urine Blood Urine Nitrite Urine Bilirubin Urine Urobilinogen Ur Leukocyte Esterase Urine RBC Urine WBC Ur Epithelial Cells Urine Bacteria Urine HCG, Qual Negative 03/24/19 21:30 WBC RBC Hgb Hct MCV MCH MCHC RDW Plt Count MPV Absolute Neuts (auto) Absolute Lymphs (auto) Absolute Monos (auto) Absolute Eos (auto) Absolute Basos (auto) Neutrophils % Lymphocytes % Monocytes % Eosinophils % Basophils % Normal RBC Morphology Sodium Potassium Chloride Carbon Dioxide Anion Gap BUN Creatinine BUN/Creatinine Ratio Random Glucose Serum Osmolality Calcium Total Bilirubin AST ALT Alkaline Phosphatase Serum Total Protein Albumin Globulin Albumin/Globulin Ratio Lipase Urine Color Yellow Urine Appearance Clear Urine pH 6.0 Ur Specific [place] 1.010 Urine Protein Negative Urine Glucose (UA) Negative Urine Ketones Negative Urine Blood Negative Urine Nitrite Negative Urine Bilirubin Negative Urine Urobilinogen 0.2 Ur Leukocyte Esterase Negative Urine RBC 0 Urine WBC 0 Ur Epithelial Cells 5-10 Urine Bacteria 0 Urine HCG, Qual Discuss test result with patient Departure - Departure Clinical Impression: Dizziness, nonspecific Time of Disposition: 22:49 Disposition: Discharge to Home or Self Care Condition: Good Departure Forms: ED Discharge - Pt. Copy, Patient Portal Self Enrollment Instructions: Dizziness, Nonvertigo, (DC), Vertigo (a Type of Dizziness) (DC) Referrals: David Rodriguez MD [Primary Care Provider] - 1-2 Weeks Prescriptions: Meclizine HCl [Meclizine 25] 25 mg PO Q4HR PRN #10 tab PRN Reason: Dizziness predniSONE 10 mg PO BID #10 tab Home Medications: Ambulatory Orders Tramadol HCl 50 mg PO Q4HR PRN #15 tab 11/27/18 Ondansetron HCl [Zofran] 4 mg PO Q8HRS #10 tab 01/18/19 Meclizine HCl [Meclizine 25] 25 mg PO Q4HR PRN #10 tab 03/24/19 predniSONE 10 mg PO BID #10 tab 03/24/19 Additional Instructions: Return to ER as needed;Follow up with primary Md 28 March 2019 for recheck
[2019-03-24 21:48] VITALS: TEMP 99.4
[2019-03-24] MEDS: PROCHLORPERAZINE INJ 10 MG/2 ML VIAL IV ONE (22:01)
[2019-03-24] MEDS: DEXAMETHASONE INJ 4 MG/ML VIAL IV ONE (22:01)
[2019-03-24] MEDS: LACTATED RINGERS 1,000 ML IVS ONE (22:01)
[2019-03-24] MEDS: predniSONE 20 MG TAB PO ONE (22:50)
[2019-03-24] MEDS: MECLIZINE HCL 12.5 MG TAB PO ONE (22:50)
[2019-03-24 23:02] VITALS: BP 124/74; O2SAT 98
== END 2019-03-24 23:02 | disposition home or self-care (01) ==
LOC: ER 21:27
DX: R42 Dizziness and giddiness (principal); J45.909 Unspecified asthma, uncomplicated; Z87.891 Personal history of nicotine dependence; Z79.899 Other long term (current) drug therapy; Z88.8 Allergy status to other drugs, medicaments and biological substances
CPT/HCPCS: 36415; 80053; 81001; 81025; 83690; 85025; J0780; J1100; J7120; J7512

== ENCOUNTER 2019-04-13 20:05 | Emergency (ER) | payer MEDICAID ==
--- NOTE | 2019-04-13 22:30 | RAD ---
EXAM: XR Abdomen 2 Views With XR Chest CLINICAL HISTORY: The patient is 23 years old and is Female; left abd pain today TECHNIQUE: Frontal view of the chest, frontal view of the abdomen/pelvis and upright or decubitus view of the abdomen. COMPARISON: No relevant prior studies available. FINDINGS: LUNGS: Unremarkable. No consolidation. PLEURAL SPACE: Unremarkable. No pneumothorax. HEART: Unremarkable. No cardiomegaly. MEDIASTINUM: Unremarkable. INTRAPERITONEAL SPACE: No free air. GASTROINTESTINAL TRACT: A moderate amount stool is present throughout the colon. Distal air is noted. No dilated loops of bowel present. No abnormal calcifications or soft tissue masses are noted. BONES/JOINTS: Unremarkable. IMPRESSION: 1. No acute cardiopulmonary process. 2. Moderate stool burden without obstruction. Electronically signed by: Sandrita Anderson MD 04/13/2019 10:28 PM CDT
[2019-04-13] MEDS ORDERED: MAGNESIUM HYDROXIDE 30 ML UD PO ONE (22:36)
--- NOTE | 2019-04-13 22:42 | ED.PDOC ---
History of Present Illness - General Chief Complaint: Abdominal Pain Stated Complaint: lower abdominal pain, possible Time Seen by Provider: 04/13/19 20:27 Source: patient Exam Limitations: no limitations - History of Present Illness Initial Comments: the patient's 21-year-old female presenting with some left upper abdominal pain for the last 24 hours. She also reports that she is 5 days late on her period and took 4 tests which were negative and 2 of which were positive. She does have a history of urinary tract infections. No urinary symptoms. No discharge. No fever. No rebound or peritoneal signs. The patient is eating and drinking well. Timing/Duration: 24 hours Severity: mild Improving Factors: nothing Worsening Factors: nothing Associated Symptoms: denies symptoms Allergies/Adverse Reactions: Allergies Ketorolac Tromethamine [From Toradol] Allergy (Verified 01/17/19 22:31) Review of Systems - Review of Systems Constitutional: States: no symptoms reported EENTM: States: no symptoms reported Respiratory: States: no symptoms reported Cardiology: States: no symptoms reported Gastrointestinal/Abdominal: States: see HPI Genitourinary: States: no symptoms reported Musculoskeletal: States: no symptoms reported Skin: States: no symptoms reported Neurological: States: no symptoms reported Endocrine: States: no symptoms reported All other Systems: No Change from Baseline Past Medical History (General) - Patient Medical History Hx Seizures: No Hx Stroke: No Hx Dementia: No Hx Asthma: No Hx of COPD: No Hx Cardiac Disorders: No Hx Congestive Heart Failure: No Hx Pacemaker: No Hx Hypertension: No Hx Thyroid Disease: No Hx Diabetes: No Hx Gastroesophageal Reflux: No Hx Renal Disease: No Hx Cancer: No Hx of HIV: No Hx Hepatitis C: No Hx MRSA: No Surgical History: no surgical history - Vaccination History Hx Tetanus, Diphtheria Vaccination: Yes Hx Influenza Vaccination: No Hx Pneumococcal Vaccination: No Immunizations Up to Date: No - Social History Hx Tobacco Use: Yes Hx Chewing Tobacco Use: No Hx Alcohol Use: No Hx Substance Use: No Hx Substance Use Treatment: No Hx Depression: No Feels Threatened In Home Enviroment: No Feels Threatened In a Relationship: No Hx Physical Abuse: No Hx Emotional Abuse: No Hx Suspected Abuse: No - Female History Patient is a Female of Child Bearing Age (10 -59 yrs old): Yes Hx Last Menstrual Period: 03/17/19 Patient : Yes - positive test x 2 at home Expected Date of Delivery:: 04/09/18 Hx Gestational Age: 37 - Triage Comment ED Triage Comment: placed in gown and UA obtained Family Medical History - Family History Paternal Grandparents Family History: Unknown Living Status: Unknown Hx Family Diabetes: Yes - type 2 Hx Family;Other: Ht disease Sister Living Status: Still Living Hx Family;Other: thyroid dysfunction, migraines Mother Family History: No Known Hx Family;Other: migraines, multiple births Father Living Status: Still Living Hx Family Hypertension: Yes Hx Family Diabetes: Yes Hx Family Cancer: Yes Hx Family;Other: multiple births Brother Paternal Family History: Unknown Living Status: Still Living Hx Family Asthma: No Hx Family Congestive Heart Failure: No Hx Family Hypertension: No Hx Family Cancer: Yes - bone Physical Exam - Physical Exam General Appearance: Alert, Comfortable, No apparent distress Eye Exam: bilateral normal Ears, Nose, Throat: hearing grossly normal, normal ENT inspection, normal pharynx Neck: full range of motion, supple Respiratory: lungs clear, normal breath sounds, no respiratory distress, no accessory muscle use Cardiovascular/Chest: normal peripheral pulses, regular rate, rhythm, no edema Peripheral Pulses: radial,right: 2+, radial,left: 2+, dorsalis pedis,right: 2+, dorsalis pedis,left: 2+ Gastrointestinal/Abdominal: non tender, soft, other - bese Rectal Exam: deferred Back Exam: normal inspection, no CVA tenderness, no vertebral tenderness Extremity: non-tender, normal inspection, no pedal edema, normal capillary refill 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 This appears to be due to constipation based on the x-rays. She is given a dose of milk of magnesia here. She needs to increase her fluid intake over the next week. She needs to also increase her fiber intake prevent further episodes. The patient has tested negative for here. She is late on her period. I would encourage her to recheck a urine test in 1 week and behave for now as if she were . ER warnings were given. Keep routine follow up with primary care doctor otherwise. - Results/Orders Results/Orders: Laboratory Tests 04/13/19 04/13/19 20:45 20:50 Urine Color Yellow Urine Appearance Sl cloudy Urine pH 6.0 Ur Specific [place] 1.020 Urine Protein Negative Urine Glucose (UA) Negative Urine Ketones Negative Urine Blood Negative Urine Nitrite Negative Urine Bilirubin Negative Urine Urobilinogen 0.2 Ur Leukocyte Esterase Negative Urine RBC 0 Urine WBC 0 Ur Epithelial Cells 20-30 Urine Bacteria Rare Urine HCG, Qual Negative -ray of abdomen shows constipation. Departure - Departure Clinical Impression: Constipation Qualifiers: Constipation type: unspecified constipation type Qualified Code(s): K59.00 - Constipation, unspecified Disposition: Discharge to Home or Self Care Condition: Fair Departure Forms: ED Discharge - Pt. Copy, Patient Portal Self Enrollment Instructions: Constipation, Adult (DC) Diet: regular diet - High-fiber Activity: increase activity as tolerated Referrals: David Rodriguez MD [Primary Care Provider] - 1-2 Weeks Additional Instructions: the patient's 21-year-old female presenting secondary to left upper abdominal pain. This appears to be due to constipation based on the x-rays. She is given a dose of milk of magnesia here. She needs to increase her fluid intake over the next week. She needs to also increase her fiber intake prevent further episodes. The patient has tested negative for here. She is late on her period. I would encourage her to recheck a urine test in 1 week and behave for now as if she were . ER warnings were given. Keep routine follow up with primary care doctor otherwise.
[2019-04-13 22:55] VITALS: BP 133/81; TEMP 99.2; O2SAT 99
== END 2019-04-13 22:56 | disposition home or self-care (01) ==
LOC: ER 20:05
DX: K59.00 Constipation, unspecified (principal); Z32.02 Encounter for pregnancy test, result negative; Z88.8 Allergy status to other drugs, medicaments and biological substances; Z87.891 Personal history of nicotine dependence

== ENCOUNTER 2019-07-08 21:25 | Emergency (ER) | payer SELFPAY ==
[2019-07-08] MEDS: ONDANSETRON ODT 8 MG TAB SL ONE (22:02)
[2019-07-08] MEDS: SUCRALFATE 1 GM/10 ML 1 GM UD PO ONE (22:02)
[2019-07-08] MEDS: SODIUM CHLORIDE 0.9% 1000ML 1,000 ML IVS ONE (22:19)
[2019-07-08] MEDS ORDERED: PROMETHAZINE HCL INJ 25 MG/ML VIAL ONE (22:33)
[2019-07-08] MEDS ORDERED: SODIUM CHLORIDE 0.9% 50ML 50 ML ONE (22:33)
[2019-07-08] MEDS: PROMETHAZINE HCL INJ 25 MG in SODIUM CHLORIDE 0.9% 50ML 50 ML IVPB ONE (22:34)
[2019-07-08] MEDS: MAGNESIUM HYDROXIDE 30 ML UD PO ONE (22:34)
[2019-07-08 22:42] VITALS: BP 142/76
[2019-07-08 23:15] VITALS: O2SAT 99
--- NOTE | 2019-07-08 23:32 | ED.PDOC ---
History of Present Illness - General Chief Complaint: GI Problem Stated Complaint: vomiting Time Seen by Provider: 07/08/19 21:29 Source: patient Exam Limitations: no limitations - History of Present Illness Initial Comments: the patient a 23-year-old female presenting to the emergency room secondary to left lateral abdominal discomfort as well as some mild nausea and vomiting. She does have a history of recurrent abdominal pain with nausea and vomiting. Additionally she reports that she had a positive urine test earlier in the day. She has had fairly significant nausea and vomiting with her previous pregnancies. No fever. Abdominal discomfort appears to be mid and lateral left abdomen. Timing/Duration: 4-6 hours Severity: moderate Improving Factors: nothing Worsening Factors: nothing Associated Symptoms: loss of appetite, malaise, nausea/vomiting Allergies/Adverse Reactions: Allergies Ketorolac Tromethamine [From Toradol] Allergy (Verified 01/17/19 22:31) Home Medications: Ambulatory Orders Doxylamine-Pyridoxine [Diclegis 10-10 mg] 1 tab PO DAILY #14 tab 07/08/19 Ondansetron Odt [Zofran ODT] 4 mg PO Q8HR PRN #5 tab 07/08/19 Review of Systems - Review of Systems Constitutional: States: no symptoms reported EENTM: States: no symptoms reported Respiratory: States: no symptoms reported Cardiology: States: no symptoms reported Gastrointestinal/Abdominal: States: see HPI Genitourinary: States: no symptoms reported Musculoskeletal: States: no symptoms reported Skin: States: no symptoms reported Neurological: States: no symptoms reported Endocrine: States: no symptoms reported All other Systems: No Change from Baseline Past Medical History (General) - Patient Medical History Hx Seizures: No Hx Stroke: No Hx Dementia: No Hx Asthma: No Hx of COPD: No Hx Cardiac Disorders: No Hx Congestive Heart Failure: No Hx Pacemaker: No Hx Hypertension: No Hx Thyroid Disease: No Hx Diabetes: No Hx Gastroesophageal Reflux: No Hx Renal Disease: No Hx Cancer: No Hx of HIV: No Hx Hepatitis C: No Hx MRSA: No - Vaccination History Hx Tetanus, Diphtheria Vaccination: Yes Hx Influenza Vaccination: No Hx Pneumococcal Vaccination: No - Social History Hx Tobacco Use: Yes Hx Chewing Tobacco Use: No Hx Alcohol Use: No Hx Substance Use: No Hx Substance Use Treatment: No Hx Depression: No Hx Physical Abuse: No Hx Emotional Abuse: No Hx Suspected Abuse: No - Female History Patient is a Female of Child Bearing Age (10 -59 yrs old): Yes Hx Last Menstrual Period: 03/17/19 Patient : - unsure Expected Date of Delivery:: 04/09/18 Hx Gestational Age: 37 Family Medical History - Family History Paternal Grandparents Family History: Unknown Living Status: Unknown Hx Family Diabetes: Yes - type 2 Hx Family;Other: Ht disease Sister Living Status: Still Living Hx Family;Other: thyroid dysfunction, migraines Mother Family History: No Known Hx Family;Other: migraines, multiple births Father Living Status: Still Living Hx Family Hypertension: Yes Hx Family Diabetes: Yes Hx Family Cancer: Yes Hx Family;Other: multiple births Brother Paternal Family History: Unknown Living Status: Still Living Hx Family Asthma: No Hx Family Congestive Heart Failure: No Hx Family Hypertension: No Hx Family Cancer: Yes - bone Physical Exam - Physical Exam General Appearance: Alert, Comfortable, No apparent distress Eye Exam: bilateral normal Ears, Nose, Throat: hearing grossly normal, normal ENT inspection, normal pharynx Neck: full range of motion, supple Respiratory: lungs clear, normal breath sounds, no respiratory distress, no accessory muscle use Cardiovascular/Chest: normal peripheral pulses, regular rate, rhythm, no edema Peripheral Pulses: radial,right: 2+, radial,left: 2+ Gastrointestinal/Abdominal: soft, other - morbidly obese, see history of present illness. No rebound or peritoneal signs. No palpable mass. 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 She is which may be contributing. She was given a dose of milk of magnesia as she has had a significant history of constipation contributing to her abdominal symptoms in the past. She received a liter of IV fluids for mild dehydration. She is going to be written for some Zofran for nausea and vomiting and doxylamine to take each morning. She needs to obtain an trouble operator in follow-up with them. ER warnings were given. - Results/Orders Results/Orders: Laboratory Tests 07/08/19 07/08/19 21:38 21:58 Urine Color Yellow Urine Appearance Clear Urine pH 5.5 Ur Specific [place] >= 1.030 Urine Protein Negative Urine Glucose (UA) Negative Urine Ketones Negative Urine Blood Negative Urine Nitrite Negative Urine Bilirubin Negative Urine Urobilinogen 1.0 Ur Leukocyte Esterase Negative Urine RBC 0-1 Urine WBC 0-1 Ur Epithelial Cells 5-10 Urine Bacteria Rare Urine HCG, Qual Positive Departure - Departure Clinical Impression: Vomiting Qualifiers: Weeks of gestation: unspecified Qualified Code(s): Z34.90 - Encounter for supervision of normal , unspecified, unspecified trimester Disposition: Discharge to Home or Self Care Condition: Fair Departure Forms: ED Discharge - Pt. Copy, Patient Portal Self Enrollment Instructions: DI for Gastritis Diet: regular diet Activity: increase activity as tolerated Referrals: David Rodriguez MD [Primary Care Provider] - 1-2 Weeks Prescriptions: Ondansetron Odt [Zofran ODT] 4 mg PO Q8HR PRN #5 tab PRN Reason: Nausea--Moderate Doxylamine-Pyridoxine [Diclegis 10-10 mg] 1 tab PO DAILY #14 tab Home Medications: Ambulatory Orders Doxylamine-Pyridoxine [Diclegis 10-10 mg] 1 tab PO DAILY #14 tab 07/08/19 Ondansetron Odt [Zofran ODT] 4 mg PO Q8HR PRN #5 tab 07/08/19 Additional Instructions: the patient's 23-year-old female presenting secondary to nausea and vomiting. She is which may be contributing. She was given a dose of milk of magnesia as she has had a significant history of constipation contributing to her abdominal symptoms in the past. She received a liter of IV fluids for mild dehydration. She is going to be written for some Zofran for nausea and vomiting and doxylamine to take each morning. She needs to obtain an trouble operator in follow-up with them. ER warnings were given.
[2019-07-08 23:45] VITALS: TEMP 98.2
== END 2019-07-08 23:42 | disposition home or self-care (01) ==
LOC: ER 21:25
DX: O21.9 Vomiting of pregnancy, unspecified (principal); Z87.891 Personal history of nicotine dependence; Z88.8 Allergy status to other drugs, medicaments and biological substances; Z3A.00 Weeks of gestation of pregnancy not specified
CPT/HCPCS: 81001; 81025; A4216; J2550; J7030

== ENCOUNTER 2019-07-16 01:36 | Emergency (ER) | payer SELFPAY ==
[2019-07-16] MEDS ORDERED: ONDANSETRON ODT 8 MG TAB SL ONE (02:48)
--- NOTE | 2019-07-16 02:57 | ED.PDOC ---
History of Present Illness - General Chief Complaint: GI Problem Stated Complaint: N/V for 2 days Time Seen by Provider: 07/16/19 02:47 Information Source: patient Exam Limitations: no limitations - History of Present Illness Initial Comments: patient comes in today for nausea and vomiting for approximately 36 hours. Patient has had intermittently for the past week and she believes she is about 4 weeks by stated LMP of June 15, 2019. Patient has not tried anything for the nausea but decided to go ahead and be seen as her mom was given being seen today. Patient's past medical history is positive for gestational diabetes. Patient smokes but is trying to quit does not drink or take illicit substances. Abdominal Pain Onset Location: other - no [place] Pain Radiation: no radiation Quality: other Timing/Duration: other - 36 hours Improving Factors: nothing Worsening Factors: nothing Associated Symptoms: nausea/vomiting Review of Systems - Review of Systems Constitutional: States: no symptoms reported. Denies: chills, fever EENTM: States: no symptoms reported. Denies: ear pain, nose congestion, throat pain Respiratory: States: no symptoms reported. Denies: cough Cardiology: States: no symptoms reported. Denies: chest pain Gastrointestinal/Abdominal: States: nausea, vomiting. Denies: abdominal pain, constipation, diarrhea Genitourinary: States: no symptoms reported. Denies: discharge, dysuria, frequency Past Medical History (General) - Patient Medical History Hx Seizures: No Hx Stroke: No Hx Dementia: No Hx Asthma: No Hx of COPD: No Hx Cardiac Disorders: No Hx Congestive Heart Failure: No Hx Pacemaker: No Hx Hypertension: No Hx Thyroid Disease: No Hx Diabetes: Yes - gestational DM Hx Gastroesophageal Reflux: No Hx Renal Disease: No Hx Cancer: No Hx of HIV: No Hx Hepatitis C: No Hx MRSA: No Surgical History: other - Vaccination History Hx Tetanus, Diphtheria Vaccination: Yes Hx Influenza Vaccination: No Hx Pneumococcal Vaccination: No Immunizations Up to Date: Yes - Social History Hx Tobacco Use: Yes Hx Chewing Tobacco Use: No Hx Alcohol Use: No Hx Substance Use: No Hx Substance Use Treatment: No Hx Depression: No Feels Threatened In Home Enviroment: No Feels Threatened In a Relationship: No Hx Physical Abuse: No Hx Emotional Abuse: No Hx Suspected Abuse: No - Activities of Daily Living Hospice Agency (if applicable):: None - Female History Patient is a Female of Child Bearing Age (10 -59 yrs old): Yes Hx Last Menstrual Period: 03/17/19 Patient : Yes - urine test positive at [facility] on 07/09/19 Expected Date of Delivery:: 04/09/18 Hx Gestational Age: 36 - Triage Comment ED Triage Comment: 07/09/19 urine HCG positive, has not seen ob doc yet, has appt on 08/02/19 Family Medical History - Family History Paternal Grandparents Family History: Unknown Living Status: Unknown Hx Family Diabetes: Yes - type 2 Hx Family;Other: Ht disease Sister Living Status: Still Living Hx Family;Other: thyroid dysfunction, migraines Mother Family History: No Known Hx Family;Other: migraines, multiple births Father Living Status: Still Living Hx Family Hypertension: Yes Hx Family Diabetes: Yes Hx Family Cancer: Yes Hx Family;Other: multiple births Brother Paternal Family History: Unknown Living Status: Still Living Hx Family Asthma: No Hx Family Congestive Heart Failure: No Hx Family Hypertension: No Hx Family Cancer: Yes - bone Physical Exam - Physical Exam General Appearance: Alert, Comfortable, No apparent distress Eyes, Ears, Nose, Throat Exam: PERRL/EOMI, normal ENT inspection, TMs normal, pharynx normal Neck: non-tender, full range of motion, supple, normal inspection Respiratory: chest non-tender, lungs clear, normal breath sounds, no respiratory distress Cardiovascular/Chest: normal peripheral pulses, regular rate, rhythm, no edema, no gallop, no JVD, no murmur Peripheral Pulses: No deficit Gastrointestinal/Abdominal: normal bowel sounds, non tender, soft Back Exam: no CVA tenderness Neurologic: alert, oriented x 3 Progress - Progress Progress: 07/16/19 02:58 patient had small cuff, recheck on blood pressure is 137/74 - Results/Orders Results/Orders: Laboratory Results WBC 9.9 K/mm3 (4.8-10.8) 07/16/19 02:48 RBC 5.16 M/mm3 (4.20-5.40) 07/16/19 02:48 Hgb 12.5 gm/dL (12.0-16.0) 07/16/19 02:48 Hct 38.5 % (36.0-47.0) 07/16/19 02:48 MCV 74.8 fl (81.0-99.0) L 07/16/19 02:48 MCH 24.1 pg (27.0-31.0) L 07/16/19 02:48 MCHC 32.3 g/dL (33.0-37.0) L 07/16/19 02:48 RDW 17.2 % (11.5-14.5) H 07/16/19 02:48 Plt Count 250 K/mm3 (130-400) 07/16/19 02:48 MPV 8.6 fl (7.40-10.4) 07/16/19 02:48 Absolute Neuts (auto) 5.70 K/uL (1.8-6.8) 07/16/19 02:48 Absolute Lymphs (auto) 3.20 K/uL (1.0-3.4) 07/16/19 02:48 Absolute Monos (auto) 0.70 K/uL (0.2-0.8) 07/16/19 02:48 Absolute Eos (auto) 0.20 K/uL (0.0-0.4) 07/16/19 02:48 Absolute Basos (auto) 0.10 K/uL (0.0-0.1) 07/16/19 02:48 Neutrophils % 57.2 % (42.0-78.0) 07/16/19 02:48 Lymphocytes % 31.9 % (20.0-50.0) 07/16/19 02:48 Monocytes % 7.5 % (2.0-9.0) 07/16/19 02:48 Eosinophils % 2.2 % (1.0-5.0) 07/16/19 02:48 Basophils % 1.2 % (0.0-2.0) 07/16/19 02:48 Sodium 138 mmol/L (135-145) 07/16/19 02:48 Potassium 3.6 mmol/L (3.6-5.0) 07/16/19 02:48 Chloride 108 mmol/L (101-111) 07/16/19 02:48 Carbon Dioxide 21 mmol/L (21-31) 07/16/19 02:48 Anion Gap 12.6 (12-18) 07/16/19 02:48 BUN 12 mg/dL (7-18) 07/16/19 02:48 Creatinine 0.68 mg/dL (0.6-1.3) 07/16/19 02:48 BUN/Creatinine Ratio 17.6 (10-20) 07/16/19 02:48 Random Glucose 107 mg/dL (70-105) H 07/16/19 02:48 Serum Osmolality 275.9 mOsm/L (275-295) 07/16/19 02:48 Calcium 8.9 mg/dL (8.4-10.2) 07/16/19 02:48 Total Bilirubin 0.2 mg/dL (0.2-1.0) 07/16/19 02:48 AST 20 IU/L (10-42) 07/16/19 02:48 ALT 23 IU/L (10-60) 07/16/19 02:48 Alkaline Phosphatase 59 IU/L (42-121) 07/16/19 02:48 Serum Total Protein 6.9 gm/dL (6.4-8.2) 07/16/19 02:48 Albumin 3.7 g/dl (3.2-5.5) 07/16/19 02:48 Globulin 3.2 gm/dL (2.3-3.5) 07/16/19 02:48 Albumin/Globulin Ratio 1.2 (1.1-1.9) 07/16/19 02:48 Urine Color Yellow (Yellow) 07/16/19 02:50 Urine Appearance Sl cloudy (Clear) 07/16/19 02:50 Urine pH 5.5 (4.5-7.8) 07/16/19 02:50 Ur Specific [place] >= 1.030 (1.005-1.030) 07/16/19 02:50 Urine Protein Negative mg/dL 07/16/19 02:50 Urine Glucose (UA) Negative mg/dL (Negative) 07/16/19 02:50 Urine Ketones Negative mg/dL (NEGATIVE) 07/16/19 02:50 Urine Blood Negative (Negative) 07/16/19 02:50 Urine Nitrite Negative 07/16/19 02:50 Urine Bilirubin Negative (NEGATIVE) 07/16/19 02:50 Urine Urobilinogen 0.2 mg/dL (0.2-1.0) 07/16/19 02:50 Ur Leukocyte Esterase Negative (Negative) 07/16/19 02:50 Urine RBC 0-1 /hpf 07/16/19 02:50 Urine WBC 0-1 /hpf 07/16/19 02:50 Ur Epithelial Cells 10-20 /hpf 07/16/19 02:50 Amorphous Sediment 2+ 07/16/19 02:50 Urine Bacteria 0 07/16/19 02:50 Urine Mucus Trace 07/16/19 02:50 Departure - Departure Clinical Impression: Nausea and vomiting during Disposition: Discharge to Home or Self Care Departure Forms: ED Discharge - Pt. Copy, Patient Portal Self Enrollment Referrals: David Rodriguez MD [Primary Care Provider] - 1-2 Weeks Prescriptions: Ondansetron Odt [Zofran ODT] 8 mg PO QID PRN #15 tab PRN Reason: Nausea Home Medications: Ambulatory Orders Doxylamine-Pyridoxine [Diclegis 10-10 mg] 1 tab PO DAILY #14 tab 07/08/19 Ondansetron Odt [Zofran ODT] 4 mg PO Q8HR PRN #5 tab 07/08/19 Ondansetron Odt [Zofran ODT] 8 mg PO QID PRN #15 tab 07/16/19 Additional Instructions: saltine crackers, ankit silver and tea and OTC vitamin B6 may help nausea. Zofran prn. Return to ER for weakness, intractable emesis.
[2019-07-16 03:40] VITALS: BP 129/65; TEMP 98.7; O2SAT 95
== END 2019-07-16 03:25 | disposition home or self-care (01) ==
LOC: ER 01:36
DX: O21.9 Vomiting of pregnancy, unspecified (principal); O99.331 Smoking (tobacco) complicating pregnancy, first trimester; F17.200 Nicotine dependence, unspecified, uncomplicated; Z3A.01 Less than 8 weeks gestation of pregnancy

== ENCOUNTER 2019-07-25 22:58 | Emergency (ER) | payer MEDICAID ==
[2019-07-25 23:15] VITALS: TEMP 99.9
[2019-07-25] MEDS ORDERED: PROMETHAZINE HCL INJ 25 MG/ML VIAL IM ONE (23:44)
--- NOTE | 2019-07-25 23:47 | ED.PDOC ---
History of Present Illness - General Chief Complaint: GI Problem Stated Complaint: N/V since yesterday. V- x's 8 Time Seen by Provider: 07/25/19 23:32 Information Source: patient - History of Present Illness Initial Comments: SHE IS 6 WEEKS AND VOICES THAT SHE HAS BEEN VOMITING SINCE EARLY THIS AM. SHE HAS A PRESPRIPTION FOR ZOFRAN BUT HASN'T TAKEN ANY MEDICATION. HAS VOMITED ABOUT 4-5 TIMES. SHE DENIES ANY DIARRHEA OR FEVER OR DYSURIA. SHE IS A G4, P3, WITH AN LMP OF 7/16. Abdominal Pain Onset Location: unknown Pain Radiation: no radiation Quality: mild Timing/Duration: 7-24 hours Improving Factors: nothing Worsening Factors: nothing Associated Symptoms: denies symptoms Review of Systems - Review of Systems Constitutional: States: no symptoms reported EENTM: States: no symptoms reported Respiratory: States: no symptoms reported Cardiology: States: no symptoms reported Gastrointestinal/Abdominal: States: nausea, vomiting Genitourinary: States: no symptoms reported Musculoskeletal: States: no symptoms reported Skin: States: no symptoms reported, change in color Past Medical History (General) - Patient Medical History Hx Seizures: No Hx Stroke: No Hx Dementia: No Hx Asthma: Yes Hx of COPD: No Hx Cardiac Disorders: No Hx Congestive Heart Failure: No Hx Pacemaker: No Hx Hypertension: No Hx Thyroid Disease: No Hx Diabetes: Yes - gestational DM Hx Gastroesophageal Reflux: No Hx Renal Disease: No Hx Cancer: No Hx of HIV: No Hx Hepatitis C: No Hx MRSA: No Surgical History: other - Vaccination History Hx Tetanus, Diphtheria Vaccination: No Hx Influenza Vaccination: No Hx Pneumococcal Vaccination: No - Social History Hx Tobacco Use: Yes Hx Chewing Tobacco Use: No Hx Alcohol Use: No Hx Substance Use: No Hx Substance Use Treatment: No Hx Depression: No Hx Physical Abuse: No Hx Emotional Abuse: No Hx Suspected Abuse: No - Female History Hx Last Menstrual Period: 03/17/19 Patient : Yes - urine test positive at [facility] on 07/09/19 Expected Date of Delivery:: 04/09/18 Hx Gestational Age: 36 Family Medical History - Family History Paternal Grandparents Family History: Unknown Living Status: Unknown Hx Family Diabetes: Yes - type 2 Hx Family;Other: Ht disease Sister Living Status: Still Living Hx Family;Other: thyroid dysfunction, migraines Mother Family History: No Known Hx Family;Other: migraines, multiple births Father Living Status: Still Living Hx Family Hypertension: Yes Hx Family Diabetes: Yes Hx Family Cancer: Yes Hx Family;Other: multiple births Brother Paternal Family History: Unknown Living Status: Still Living Hx Family Asthma: No Hx Family Congestive Heart Failure: No Hx Family Hypertension: No Hx Family Cancer: Yes - bone Physical Exam - Physical Exam General Appearance: Alert, Well Developed, Well Groomed, Well Hydrated Eyes, Ears, Nose, Throat Exam: PERRL/EOMI Neck: non-tender Respiratory: chest non-tender Cardiovascular/Chest: normal peripheral pulses Gastrointestinal/Abdominal: normal bowel sounds, non tender, soft, no organomegaly, no pulsatile mass Rectal Exam: deferred Back Exam: normal inspection Extremity: normal range of motion Departure - Departure Clinical Impression: Vomiting Qualifiers: Vomiting type: unspecified Vomiting Intractability: non-intractable Nausea presence: with nausea Qualified Code(s): R11.2 - Nausea with vomiting, unspecified Qualifiers: Weeks of gestation: less than 8 weeks Qualified Code(s): Z3A.01 - Less than 8 weeks gestation of Time of Disposition: 23:48 Disposition: Discharge to Home or Self Care Condition: Good Departure Forms: ED Discharge - Pt. Copy, Patient Portal Self Enrollment Instructions: DI for Gastritis Diet: other - 6 SMALL MEALS A DAY, PREFERRED COLD MEALS WITH SALTINES. Referrals: David Rodriguez MD [Primary Care Provider] - 1-2 Weeks Prescriptions: Promethazine Supp [Phenergan Suppository] 25 mg TX Q6HRS #10 sup Home Medications: Ambulatory Orders Vit W/ Ferrous Fumara [] 1 tab PO DAILY 07/25/19 Promethazine Supp [Phenergan Suppository] 25 mg TX Q6HRS #10 sup 07/25/19
[2019-07-25] MEDS ORDERED: PROMETHAZINE TAB (ER DISP) 25 MG TAB PO ONE (23:50)
[2019-07-25] MEDS ORDERED: PROMETHAZINE TAB (ER DISP) 25 MG TAB ONE (23:50)
[2019-07-25 23:57] VITALS: BP 109/61; O2SAT 98
== END 2019-07-25 23:57 | disposition home or self-care (01) ==
LOC: ER 22:58
DX: O21.9 Vomiting of pregnancy, unspecified (principal); O99.511 Diseases of the respiratory system complicating pregnancy, first trimester; J45.909 Unspecified asthma, uncomplicated; Z3A.01 Less than 8 weeks gestation of pregnancy; Z87.891 Personal history of nicotine dependence

== ENCOUNTER 2019-07-27 21:16 | Emergency (ER) | payer MEDICAID ==
[2019-07-27 23:05] VITALS: TEMP 98.7; O2SAT 100
[2019-07-28 00:21] VITALS: BP 107/59
== END 2019-07-28 00:17 | disposition home or self-care (01) ==
LOC: ER 21:16
DX: O99.611 Diseases of the digestive system complicating pregnancy, first trimester (principal); K29.70 Gastritis, unspecified, without bleeding; O24.419 Gestational diabetes mellitus in pregnancy, unspecified control; O99.511 Diseases of the respiratory system complicating pregnancy, first trimester; J45.909 Unspecified asthma, uncomplicated; Z3A.01 Less than 8 weeks gestation of pregnancy; Z87.891 Personal history of nicotine dependence
CPT/HCPCS: 36415; 80053; 81001; 84702; 85025; J2550; J7030

== ENCOUNTER 2019-07-28 17:55 | Emergency (ER) | payer MEDICAID ==
[2019-07-29 00:03] VITALS: BP 133/65; TEMP 99.4; O2SAT 99
== END 2019-07-28 23:50 | disposition home or self-care (01) ==
LOC: ER 17:55
DX: O21.0 Mild hyperemesis gravidarum (principal); O24.419 Gestational diabetes mellitus in pregnancy, unspecified control; O99.511 Diseases of the respiratory system complicating pregnancy, first trimester; J45.909 Unspecified asthma, uncomplicated; Z3A.01 Less than 8 weeks gestation of pregnancy; Z88.8 Allergy status to other drugs, medicaments and biological substances; Z87.891 Personal history of nicotine dependence
CPT/HCPCS: 36415; 80048; 81001; 85025; A4216; J2550; J7030; Q0169

== ENCOUNTER 2019-08-17 23:09 | Emergency (ER) | payer MEDICAID ==
[2019-08-17 23:25] VITALS: O2SAT 99
[2019-08-17] MEDS ORDERED: PROMETHAZINE HCL INJ 25 MG in SODIUM CHLORIDE 0.9% 50ML 50 ML IVPB ONE (23:30)
[2019-08-17] MEDS ORDERED: SODIUM CHLORIDE 0.9% 1000ML 1,000 ML IVS ONE (23:30)
--- NOTE | 2019-08-17 23:35 | ED.PDOC ---
History of Present Illness - General Chief Complaint: GI Problem Stated Complaint: N/V for 2 days 9 wks gestation Time Seen by Provider: 08/17/19 23:29 Source: patient, RN notes reviewed, Vital Signs reviewed, family - Exam Limitations: no limitations - History of Present Illness Initial Comments: Pt is a EGA 9 weeks with c/o n/v x 2 days, unremitting. Not getting better with Zofran. Pt with malaise and fatigue. Pt denies f/c/diarrhea/sob. Timing/Duration: other - 2 days Severity: moderate Improving Factors: nothing Worsening Factors: eating Associated Symptoms: loss of appetite, malaise, nausea/vomiting, weakness Allergies/Adverse Reactions: Allergies Ketorolac Tromethamine [From Toradol] Allergy (Verified 08/17/19 23:25) Other caused nose to swell and itch Home Medications: Ambulatory Orders Promethazine Tab [Phenergan Tablet] 25 mg PO Q6HRS #20 tab 08/18/19 Review of Systems - Review of Systems Constitutional: States: see HPI, malaise, weakness EENTM: States: no symptoms reported Respiratory: States: no symptoms reported Cardiology: States: no symptoms reported Gastrointestinal/Abdominal: States: see HPI, nausea, vomiting. Denies: abdominal pain, constipation, diarrhea Genitourinary: States: no symptoms reported. Denies: discharge, dysuria, frequency Musculoskeletal: States: no symptoms reported Skin: States: no symptoms reported Neurological: States: weakness. Denies: headache, numbness, paresthesia Endocrine: States: no symptoms reported Hematologic/Lymphatic: States: no symptoms reported All other Systems: Reviewed and Negative Past Medical History (General) - Patient Medical History Hx Seizures: No Hx Stroke: No Hx Dementia: No Hx Asthma: Yes Hx of COPD: No Hx Cardiac Disorders: No Hx Congestive Heart Failure: No Hx Pacemaker: No Hx Hypertension: No Hx Thyroid Disease: No Hx Diabetes: Yes - gestational DM Hx Gastroesophageal Reflux: No Hx Renal Disease: No Hx Cancer: No Hx of HIV: No Hx Hepatitis C: No Hx MRSA: No Surgical History: other - Vaccination History Hx Tetanus, Diphtheria Vaccination: No Hx Influenza Vaccination: No Hx Pneumococcal Vaccination: No - Social History Hx Tobacco Use: Yes Hx Chewing Tobacco Use: No Hx Alcohol Use: No Hx Substance Use: No Hx Substance Use Treatment: No Hx Depression: No Hx Physical Abuse: No Hx Emotional Abuse: No Hx Suspected Abuse: No - Female History Hx Last Menstrual Period: 06/15/19 Patient : Yes Expected Date of Delivery:: 03/23/20 Hx Gestational Age: 7 Family Medical History - Family History Paternal Grandparents Family History: Unknown Living Status: Unknown Hx Family Diabetes: Yes - type 2 Hx Family;Other: Ht disease Sister Living Status: Still Living Hx Family;Other: thyroid dysfunction, migraines Mother Family History: No Known Hx Family;Other: migraines, multiple births Father Living Status: Still Living Hx Family Hypertension: Yes Hx Family Diabetes: Yes Hx Family Cancer: Yes Hx Family;Other: multiple births Brother Paternal Family History: Unknown Living Status: Still Living Hx Family Asthma: No Hx Family Congestive Heart Failure: No Hx Family Hypertension: No Hx Family Cancer: Yes - bone Physical Exam - Physical Exam General Appearance: Alert, Anxious, Comfortable, Well Developed Eye Exam: bilateral normal, bilateral abnormal EOM Ears, Nose, Throat: hearing grossly normal, other - dry MM. Neck: non-tender, full range of motion, supple Respiratory: chest non-tender, lungs clear, normal breath sounds, no respiratory distress, no accessory muscle use Cardiovascular/Chest: normal peripheral pulses, regular rate, rhythm, no edema, no gallop, no murmur Gastrointestinal/Abdominal: normal bowel sounds, non tender, soft Extremity: normal range of motion, non-tender Neurologic: lpta II-XII nml as tested, no motor/sensory deficits, alert, normal mood/affect, oriented x 3 Skin Exam: normal color, warm/dry Progress - Progress Progress: 08/18/19 00:43 Pt has improved after ivf and iv phenergan. Plan d/c home with rx for phenergan. I have d/w pt and she voices understanding and agreement with the POC. Jared Parmar M.D. #[id number] - Results/Orders Results/Orders: Laboratory Results - last 24 hr 08/17/19 08/17/19 23:50 23:50 WBC 9.1 RBC 5.31 Hgb 13.1 Hct 40.1 MCV 75.5 L MCH 24.7 L MCHC 32.7 L RDW 17.8 H Plt Count 225 MPV 9.5 Absolute Neuts (auto) 6.70 Absolute Lymphs (auto) 1.80 Absolute Monos (auto) 0.50 Absolute Eos (auto) 0.10 Absolute Basos (auto) 0.00 Neutrophils % 73.4 Lymphocytes % 19.7 L Monocytes % 5.8 Eosinophils % 0.6 L Basophils % 0.5 Normal RBC Morphology Stain quality accept Sodium 134 L Potassium 3.4 L Chloride 101 Carbon Dioxide 18 L Anion Gap 18.4 H BUN 9 Creatinine 0.63 BUN/Creatinine Ratio 14.3 Random Glucose 79 Serum Osmolality 265.8 L Calcium 9.5 Total Bilirubin 0.5 AST 16 ALT 21 Alkaline Phosphatase 65 Serum Total Protein 7.8 Albumin 4.2 Globulin 3.6 H Albumin/Globulin Ratio 1.2 Departure - Departure Clinical Impression: Hyperemesis gravidarum, Dehydration, Hypokalemia Time of Disposition: 00:46 Disposition: Discharge to Home or Self Care Condition: Good Departure Forms: ED Discharge - Pt. Copy, Patient Portal Self Enrollment Instructions: Nausea and Vomiting of (DC), Dehydration, Adult (DC), Hypokalemia (DC) Referrals: David Rodriguez MD [Primary Care Provider] - 1-2 Weeks Prescriptions: Promethazine Tab [Phenergan Tablet] 25 mg PO Q6HRS #20 tab Home Medications: Ambulatory Orders Promethazine Tab [Phenergan Tablet] 25 mg PO Q6HRS #20 tab 08/18/19
[2019-08-17] MEDS ORDERED: PROMETHAZINE HCL INJ 25 MG/ML VIAL ONE (23:45)
[2019-08-17] MEDS ORDERED: SODIUM CHLORIDE 0.9% 50ML 50 ML ONE (23:46)
[2019-08-18 01:06] VITALS: BP 123/89; TEMP 97.9
== END 2019-08-18 01:07 | disposition home or self-care (01) ==
LOC: ER 23:09
DX: O21.1 Hyperemesis gravidarum with metabolic disturbance (principal); E86.0 Dehydration; E87.6 Hypokalemia; O24.419 Gestational diabetes mellitus in pregnancy, unspecified control; O99.511 Diseases of the respiratory system complicating pregnancy, first trimester; J45.909 Unspecified asthma, uncomplicated; Z3A.09 9 weeks gestation of pregnancy; Z87.891 Personal history of nicotine dependence; Z88.8 Allergy status to other drugs, medicaments and biological substances
CPT/HCPCS: 80053; 85025; A4216; J2550; J7030

== ENCOUNTER 2019-09-16 20:41 | Emergency (ER) | payer MEDICAID ==
[2019-09-16] MEDS ORDERED: ONDANSETRON ODT 8 MG TAB SL ONE (21:20)
[2019-09-16] MEDS ORDERED: ALUM & MAG HYDROX-SIMETHICONE 30 ML, LIDOCAINE VISCOUS 2% 15 ML PO ONE ×2 (21:20)
--- NOTE | 2019-09-16 21:24 | ED.PDOC ---
History of Present Illness - General Time Seen by Provider: 09/16/19 21:06 Source: patient Exam Limitations: no limitations - History of Present Illness Initial Comments: he patient is a 24-year-old female presenting to emergency room secondary to nausea and vomiting of . The patient is out of the Zofran. She is starting to get some esophagitis from the reflux. She has an appointment with her spanish interpreter soon. She is not dehydrated. No contractions or loss of fluid. No fever. Timing/Duration: constant, getting worse Severity: moderate Improving Factors: medication Worsening Factors: eating Associated Symptoms: malaise, nausea/vomiting Allergies/Adverse Reactions: Allergies Ketorolac Tromethamine [From Toradol] Allergy (Verified 08/17/19 23:25) Other caused nose to swell and itch Home Medications: Ambulatory Orders Promethazine Tab [Phenergan Tablet] 25 mg PO Q6HRS #20 tab 08/18/19 Ondansetron Odt [Zofran ODT] 4 mg PO Q8HR PRN #10 tab 09/16/19 Sucralfate Tab [Carafate Tab] 1 gm PO QID #60 tab 09/16/19 Review of Systems - Review of Systems Constitutional: States: malaise EENTM: States: no symptoms reported Respiratory: States: no symptoms reported Cardiology: States: no symptoms reported Gastrointestinal/Abdominal: States: see HPI Genitourinary: States: no symptoms reported Musculoskeletal: States: no symptoms reported Skin: States: no symptoms reported Neurological: States: no symptoms reported Endocrine: States: no symptoms reported All other Systems: No Change from Baseline Past Medical History (General) - Patient Medical History Hx Seizures: No Hx Stroke: No Hx Dementia: No Hx Asthma: Yes Hx of COPD: No Hx Cardiac Disorders: No Hx Congestive Heart Failure: No Hx Pacemaker: No Hx Hypertension: No Hx Thyroid Disease: No Hx Diabetes: Yes - gestational DM Hx Gastroesophageal Reflux: No Hx Renal Disease: No Hx Cancer: No Hx of HIV: No Hx Hepatitis C: No Hx MRSA: No - Vaccination History Hx Tetanus, Diphtheria Vaccination: No Hx Influenza Vaccination: No Hx Pneumococcal Vaccination: No - Social History Hx Tobacco Use: Yes Hx Chewing Tobacco Use: No Hx Alcohol Use: No Hx Substance Use: No Hx Substance Use Treatment: No Hx Depression: No Hx Physical Abuse: No Hx Emotional Abuse: No Hx Suspected Abuse: No - Female History Hx Last Menstrual Period: 06/15/19 Patient : Yes Expected Date of Delivery:: 03/23/20 Hx Gestational Age: 6 Family Medical History - Family History Paternal Grandparents Family History: Unknown Living Status: Unknown Hx Family Diabetes: Yes - type 2 Hx Family;Other: Ht disease Sister Living Status: Still Living Hx Family;Other: thyroid dysfunction, migraines Mother Family History: No Known Hx Family;Other: migraines, multiple births Father Living Status: Still Living Hx Family Hypertension: Yes Hx Family Diabetes: Yes Hx Family Cancer: Yes Hx Family;Other: multiple births Brother Paternal Family History: Unknown Living Status: Still Living Hx Family Asthma: No Hx Family Congestive Heart Failure: No Hx Family Hypertension: No Hx Family Cancer: Yes - bone Physical Exam - Physical Exam General Appearance: Alert, Comfortable, No apparent distress Eye Exam: bilateral normal Ears, Nose, Throat: hearing grossly normal, normal pharynx Neck: non-tender, supple Respiratory: lungs clear, normal breath sounds, no respiratory distress, no accessory muscle use Cardiovascular/Chest: normal peripheral pulses, regular rate, rhythm, no edema Peripheral Pulses: radial,right: 2+, radial,left: 2+ Gastrointestinal/Abdominal: non tender - mild epigastric discomfort palpation, soft, other - no rebound or peritoneal signs. Rectal Exam: deferred Back Exam: no CVA tenderness, no vertebral tenderness Extremity: normal range of motion, non-tender, normal inspection, no pedal edema, normal capillary refill Neurologic: ceo and president II-XII nml as tested, alert, normal mood/affect, oriented x 3 Skin Exam: normal color Progress - Progress Progress: 09/16/19 21:24 the patient's 24-year-old female presenting with nausea and vomiting of . She is out of her nausea medications. She is dosed with a dose of Zofran here and will be written for an outpatient prescription. Additionally she'll be written for Carafate to help reduce the reflux esophagitis. She does need to follow-up with her spanish interpreter. Keep well hydrated. Maintain a bland diet. ER warnings were given for any acute worsening. estela mata [id number] Departure - Departure Clinical Impression: Reflux esophagitis, Nausea/vomiting in Disposition: Discharge to Home or Self Care Condition: Fair Instructions: DI for Gastroesophageal Reflux Disease (GERD) Diet: bland diet Activity: increase activity as tolerated Referrals: David Rodriguez MD [Primary Care Provider] - 1-5 Days Prescriptions: Ondansetron Odt [Zofran ODT] 4 mg PO Q8HR PRN #10 tab PRN Reason: Nausea--Moderate Sucralfate Tab [Carafate Tab] 1 gm PO QID #60 tab Home Medications: Ambulatory Orders Promethazine Tab [Phenergan Tablet] 25 mg PO Q6HRS #20 tab 08/18/19 Ondansetron Odt [Zofran ODT] 4 mg PO Q8HR PRN #10 tab 09/16/19 Sucralfate Tab [Carafate Tab] 1 gm PO QID #60 tab 09/16/19 Additional Instructions: the patient's 24-year-old female presenting with nausea and vomiting of . She is out of her nausea medications. She is dosed with a dose of Zofran here and will be written for an outpatient prescription. Additionally she'll be written for Carafate to help reduce the reflux esophagitis. She does need to follow-up with her spanish interpreter. Keep well hydrated. Maintain a bland diet. ER warnings were given for any acute worsening.
[2019-09-16] MEDS ORDERED: ALUM & MAG HYDROX-SIMETHICONE 30 ML UD ONE (21:41)
[2019-09-16] MEDS ORDERED: LIDOCAINE HCL 2% (MOUTH-THROAT) 15 ML UD ONE (21:41)
[2019-09-16 22:04] VITALS: BP 128/76; TEMP 99; O2SAT 98
== END 2019-09-16 22:05 | disposition home or self-care (01) ==
LOC: ER 20:41
DX: O21.9 Vomiting of pregnancy, unspecified (principal); O99.611 Diseases of the digestive system complicating pregnancy, first trimester; K21.9 Gastro-esophageal reflux disease without esophagitis; O24.419 Gestational diabetes mellitus in pregnancy, unspecified control; O99.511 Diseases of the respiratory system complicating pregnancy, first trimester; J45.909 Unspecified asthma, uncomplicated; Z3A.13 13 weeks gestation of pregnancy; Z87.891 Personal history of nicotine dependence

== ENCOUNTER 2019-09-21 21:26 | Emergency (ER) | payer MEDICAID, OTHER ==
[2019-09-21 21:36] VITALS: BP 149/96; TEMP 98.1; O2SAT 99
[2019-09-21] MEDS ORDERED: ACETAMINOPHEN-CAFF-BUTALBITAL 1 EA TAB PO ONE (21:53)
[2019-09-21] MEDS ORDERED: ONDANSETRON ODT 8 MG TAB SL ONE (21:53)
--- NOTE | 2019-09-21 21:54 | ED.PDOC ---
History of Present Illness - General Chief Complaint: GI Problem Stated Complaint: nausea/vomiting Time Seen by Provider: 09/21/19 21:50 Information Source: patient Exam Limitations: no limitations - History of Present Illness Initial Comments: the patient is a 24-year-old female, well-known to the emergency room, presenting during secondary to nausea and vomiting of . the patient was seen here approximately 5 days ago for this problem. She is still having this problem. She did not get the prescriptions picked up to treat it, and she missed her appointment with her muffle operator today. she does have a mild headache as well. No syncope. No focal neurological changes. Abdominal Pain Onset Location: epigastric Improving Factors: medication Worsening Factors: eating Review of Systems - Review of Systems Constitutional: States: no symptoms reported EENTM: States: no symptoms reported Respiratory: States: no symptoms reported Cardiology: States: no symptoms reported Gastrointestinal/Abdominal: States: nausea, vomiting Genitourinary: States: no symptoms reported Musculoskeletal: States: no symptoms reported Skin: States: no symptoms reported Neurological: States: headache Endocrine: States: no symptoms reported All other Systems: No Change from Baseline Past Medical History (General) - Patient Medical History Hx Seizures: No Hx Stroke: No Hx Dementia: No Hx Asthma: Yes Hx of COPD: No Hx Cardiac Disorders: No Hx Congestive Heart Failure: No Hx Pacemaker: No Hx Hypertension: No Hx Thyroid Disease: No Hx Diabetes: Yes - gestational DM Hx Gastroesophageal Reflux: No Hx Renal Disease: No Hx Cancer: No Hx of HIV: No Hx Hepatitis C: No Hx MRSA: No - Vaccination History Hx Tetanus, Diphtheria Vaccination: No Hx Influenza Vaccination: No Hx Pneumococcal Vaccination: No - Social History Hx Tobacco Use: Yes Hx Chewing Tobacco Use: No Hx Alcohol Use: No Hx Substance Use: No Hx Substance Use Treatment: No Hx Depression: No Hx Physical Abuse: No Hx Emotional Abuse: No Hx Suspected Abuse: No - Female History Hx Last Menstrual Period: 06/15/19 Patient : Yes Expected Date of Delivery:: 03/23/20 Hx Gestational Age: 6 Family Medical History - Family History Paternal Grandparents Family History: Unknown Living Status: Unknown Hx Family Diabetes: Yes - type 2 Hx Family;Other: Ht disease Sister Living Status: Still Living Hx Family;Other: thyroid dysfunction, migraines Mother Family History: No Known Hx Family;Other: migraines, multiple births Father Living Status: Still Living Hx Family Hypertension: Yes Hx Family Diabetes: Yes Hx Family Cancer: Yes Hx Family;Other: multiple births Brother Paternal Family History: Unknown Living Status: Still Living Hx Family Asthma: No Hx Family Congestive Heart Failure: No Hx Family Hypertension: No Hx Family Cancer: Yes - bone Physical Exam - Physical Exam General Appearance: Alert, Comfortable, No apparent distress Eyes, Ears, Nose, Throat Exam: PERRL/EOMI, pharynx normal Neck: full range of motion, supple Respiratory: no respiratory distress, no accessory muscle use Cardiovascular/Chest: normal peripheral pulses, no edema, other - regular rate Peripheral Pulses: 2+ Gastrointestinal/Abdominal: non tender - gravid, soft Back Exam: no CVA tenderness, no vertebral tenderness Extremity: non-tender, normal inspection, no pedal edema, normal capillary refill Neurologic: travel assistant II-XII nml as tested, alert, normal mood/affect, oriented x 3 Skin Exam: normal color Comments: Vital Signs - 24 hr 09/21/19 21:35 Temperature 98.1 F Pulse Rate [ 99 H Left Apical] Respiratory 14 Rate Blood Pressure 149/96 [Left Arm] O2 Sat by Pulse 99 Oximetry Progress - Progress Progress: 09/21/19 22:46 the patient is a 24-year-old female at 14 weeks gestational age presenting secondary to nausea and vomiting of . The patient will be written again for Zofran and Carafate. Prescriptions were handed to the patient. She can additionally sweet pickled fruit maker Maalox to take as needed. She needs to keep follow-up with her LENS GENERATOR as she does have some significant risk factors that need to be dealt with including some mild chronic hypokalemia, mild to moderate hypertension and of course the nausea and vomiting of . She also has apparently had a history of significant iron deficiency in the past. these need to be dealt with and followed in order to reduce risk to her . she is tolerating oral intake currently. ER warnings were given. estela mata [id number] - Results/Orders Results/Orders: Laboratory Tests 09/21/19 22:24 Urine Color Dk yellow H Urine Appearance Clear Urine pH 6.0 Ur Specific Bazine >= 1.030 Urine Protein Trace Urine Glucose (UA) Negative Urine Ketones 40 H Urine Blood Negative Urine Nitrite Negative Urine Bilirubin Small H Urine Urobilinogen 1.0 Ur Leukocyte Esterase Negative Urine RBC 0-1 Urine WBC 0-1 Ur Epithelial Cells 10-20 Urine Bacteria Rare Departure - Departure Clinical Impression: Nausea and vomiting during Disposition: Discharge to Home or Self Care Condition: Fair Departure Forms: ED Discharge - Pt. Copy, Patient Portal Self Enrollment Instructions: Nausea and Vomiting of (DC) Diet: bland diet Activity: increase activity as tolerated Referrals: David Rodriguez MD [Primary Care Provider] - 1-5 Days Prescriptions: Ondansetron Odt [Zofran ODT] 4 mg PO Q8HR PRN #10 tab PRN Reason: Nausea--Moderate Sucralfate Tab [Carafate Tab] 1 gm PO QID #120 tab Home Medications: Ambulatory Orders Promethazine Tab [Phenergan Tablet] 25 mg PO Q6HRS #20 tab 08/18/19 Ondansetron Odt [Zofran ODT] 4 mg PO Q8HR PRN #10 tab 09/16/19 Sucralfate Tab [Carafate Tab] 1 gm PO QID #60 tab 09/16/19 Ondansetron Odt [Zofran ODT] 4 mg PO Q8HR PRN #10 tab 09/21/19 Sucralfate Tab [Carafate Tab] 1 gm PO QID #120 tab 09/21/19 Additional Instructions: the patient is a 24-year-old female at 14 weeks gestational age presenting secondary to nausea and vomiting of . The patient will be written again for Zofran and Carafate. Prescriptions were handed to the patito ent. She can additionally sweet pickled fruit maker Maalox to take as needed. She needs to keep follow-up with her LENS GENERATOR as she does have some significant risk factors that need to be dealt with including some mild chronic hypokalemia, mild to moderate hypertension and of course the nausea and vomiting of . She also has apparently had a history of significant iron deficiency in the past. these need to be dealt with and followed in order to reduce risk to her . she is tolerating oral intake currently. ER warnings were given.
[2019-09-21] MEDS ORDERED: ALUMINUM & MAGNESIUM HYDROXIDE 30 ML UD PO ONE (22:13)
== END 2019-09-21 22:54 | disposition home or self-care (01) ==
LOC: ER 21:26
DX: O21.9 Vomiting of pregnancy, unspecified (principal); O99.89 Other specified diseases and conditions complicating pregnancy, childbirth and the puerperium; R51 Headache; O24.419 Gestational diabetes mellitus in pregnancy, unspecified control; O99.512 Diseases of the respiratory system complicating pregnancy, second trimester; J45.909 Unspecified asthma, uncomplicated; Z3A.14 14 weeks gestation of pregnancy; Z87.891 Personal history of nicotine dependence

== ENCOUNTER 2019-11-13 16:39 | Emergency (ER) | payer OTHER ==
[2019-11-13] MEDS ORDERED: LIDOCAINE 1% 10 ML VIAL INJ ONE (16:47)
[2019-11-13 16:54] VITALS: BP 144/86; TEMP 97.2; O2SAT 99
--- NOTE | 2019-11-13 16:56 | ED.PDOC ---
History of Present Illness - General Chief Complaint: Dental/Mouth Stated Complaint: dental pain Time Seen by Provider: 11/13/19 16:43 Source: patient Exam Limitations: no limitations - History of Present Illness Initial Comments: 24-year-old female at 21 weeks gestation presents to the emergency department complaining of left-sided dental pain has been progressively worsening over the last week. She denies any vomiting or diarrhea and has had some subjective fever but has not measured a temperature. She has taken Tylenol at home for pain without significant improvement in her symptoms. Pain is currently 10/10 in severity and nothing she does seems to make it significantly better or worse. She denies any abdominal pain, vaginal bleeding or dysuria at this time. OB: Michael Allergies/Adverse Reactions: Allergies Ketorolac Tromethamine [From Toradol] Allergy (Verified 08/17/19 23:25) Other caused nose to swell and itch Home Medications: Ambulatory Orders Promethazine Tab [Phenergan Tablet] 25 mg PO Q6HRS #20 tab 08/18/19 Ondansetron Odt [Zofran ODT] 4 mg PO Q8HR PRN #10 tab 09/16/19 Sucralfate Tab [Carafate Tab] 1 gm PO QID #60 tab 09/16/19 Ondansetron Odt [Zofran ODT] 4 mg PO Q8HR PRN #10 tab 09/21/19 Sucralfate Tab [Carafate Tab] 1 gm PO QID #120 tab 09/21/19 Chlorhexidine Mouth Rinse [Peridex] 15 ml MT BID 10 Days #1 bottle 11/13/19 Clindamycin HCl 300 mg PO TID 10 Days cap 11/13/19 Review of Systems - Review of Systems Constitutional: States: fever. Denies: chills EENTM: States: other - dental pain. Denies: throat pain, throat swelling, mouth swelling Respiratory: Denies: cough, short of breath Cardiology: Denies: chest pain, palpitations Gastrointestinal/Abdominal: Denies: abdominal pain, nausea, vomiting Genitourinary: States: other - No vag bleeding. Denies: dysuria, frequency Musculoskeletal: Denies: back pain, muscle pain Skin: Denies: lesions, rash Neurological: Denies: headache, weakness Past Medical History (General) - Patient Medical History Hx Seizures: No Hx Stroke: No Hx Dementia: No Hx Asthma: Yes Hx of COPD: No Hx Cardiac Disorders: No Hx Congestive Heart Failure: No Hx Pacemaker: No Hx Hypertension: No Hx Thyroid Disease: No Hx Diabetes: Yes - gestational DM Hx Gastroesophageal Reflux: No Hx Renal Disease: No Hx Cancer: No Hx of HIV: No Hx Hepatitis C: No Hx MRSA: No - Vaccination History Hx Tetanus, Diphtheria Vaccination: No Hx Influenza Vaccination: No Hx Pneumococcal Vaccination: No - Social History Hx Tobacco Use: Yes Hx Chewing Tobacco Use: No Hx Alcohol Use: No Hx Substance Use: No Hx Substance Use Treatment: No Hx Depression: No Hx Physical Abuse: No Hx Emotional Abuse: No Hx Suspected Abuse: No - Female History Hx Last Menstrual Period: 06/15/19 Patient : Yes Expected Date of Delivery:: 03/23/20 Hx Gestational Age: 6 Family Medical History - Family History Paternal Grandparents Family History: Unknown Living Status: Unknown Hx Family Diabetes: Yes - type 2 Hx Family;Other: Ht disease Sister Living Status: Still Living Hx Family;Other: thyroid dysfunction, migraines Mother Family History: No Known Hx Family;Other: migraines, multiple births Father Living Status: Still Living Hx Family Hypertension: Yes Hx Family Diabetes: Yes Hx Family Cancer: Yes Hx Family;Other: multiple births Brother Paternal Family History: Unknown Living Status: Still Living Hx Family Asthma: No Hx Family Congestive Heart Failure: No Hx Family Hypertension: No Hx Family Cancer: Yes - bone Physical Exam - Physical Exam General Appearance: Alert, Well Developed, Well Nourished Eye Exam: bilateral normal Ears, Nose, Throat: other - Diffuse dental caries with erythematous and ed[place] us gums but no periapical abscess. No elevation of the tongue. Neck: supple, normal inspection, other - No cervical adenopathy Respiratory: lungs clear, normal breath sounds Cardiovascular/Chest: regular rate, rhythm Gastrointestinal/Abdominal: soft, other - Gravid with fundal height just above the umbilicus Neurologic: alert, other - Moves all extremities without focal deficits Skin Exam: normal color, warm/dry Comments: Vital Signs - 24 hr 11/13/19 16:50 Temperature 97.2 F L Pulse Rate [ 88 Left Brachial] Respiratory 20 Rate Blood Pressure 144/86 [Left Arm] O2 Sat by Pulse 99 Oximetry Progress - Progress Progress: 11/13/19 17:00 The patient was seen and evaluated in the emergency department. Her exam shows findings consistent with diffuse dental caries as well as gingivitis. FHT 147. A dental block of both the superior alveolar and inferior alveolar nerve on the left side was performed. The patient tolerated the procedure well. She will be discharged home with a prescription for gentamicin 300 mg 3 times oral daily and chlorhexidine rinses. She was encouraged to follow up with a dentist as soon as possible. She is told to return to the emergency department immediately for any worsening symptoms or other concerns. The patient and significant other at the bedside who voiced understanding and agreed with the treatment plan. Procedures - Additional Procedures Progress: Left-sided superior alveolar and inferior alveolar dental blocks. Indictation: Dental pain. Procedure details: Using anatomic landmarks as a guide 1 mL of 1% lidocaine without epi was injected into the superior alveolar space on the left and an additional 1 mL was injected into the inferior alveolar nerve space. Pain was improved and the patient tolerated the procedure well and there were no complications. Departure - Departure Clinical Impression: Dental caries, Pain, dental, ANUG (acute necrotizing ulcerative gingivitis), 21 weeks gestation of Time of Disposition: 17:03 Disposition: Discharge to Home or Self Care Condition: Good Departure Forms: ED Discharge - Pt. Copy, Patient Portal Self Enrollment Instructions: Gingivitis (DC), Dental Pain (DC) Referrals: David Rodriguez MD [Primary Care Provider] - 1-2 Weeks Prescriptions: Chlorhexidine Mouth Rinse [Peridex] 15 ml MT BID 10 Days #1 bottle Clindamycin HCl 300 mg PO TID 10 Days cap Home Medications: Ambulatory Orders Promethazine Tab [Phenergan Tablet] 25 mg PO Q6HRS #20 tab 08/18/19 Ondansetron Odt [Zofran ODT] 4 mg PO Q8HR PRN #10 tab 09/16/19 Sucralfate Tab [Carafate Tab] 1 gm PO QID #60 tab 09/16/19 Ondansetron Odt [Zofran ODT] 4 mg PO Q8HR PRN #10 tab 09/21/19 Sucralfate Tab [Carafate Tab] 1 gm PO QID #120 tab 09/21/19 Chlorhexidine Mouth Rinse [Peridex] 15 ml MT BID 10 Days #1 bottle 11/13/19 Clindamycin HCl 300 mg PO TID 10 Days cap 11/13/19 Additional Instructions: Take medications and use mouthwash as directed. OTC tylenol 1000 mg every 6H as needed for pain. Call your dentist tomorrow to schedule a follow-up appointment as soon as possible. Return to the emergency department immediately for any significant worsening of symptoms or other concerns.
== END 2019-11-13 17:20 | disposition home or self-care (01) ==
LOC: ER 16:39
DX: O99.612 Diseases of the digestive system complicating pregnancy, second trimester (principal); K02.9 Dental caries, unspecified; O98.812 Other maternal infectious and parasitic diseases complicating pregnancy, second trimester; A69.1 Other Vincent's infections; O99.512 Diseases of the respiratory system complicating pregnancy, second trimester; J45.909 Unspecified asthma, uncomplicated; O24.419 Gestational diabetes mellitus in pregnancy, unspecified control; Z3A.21 21 weeks gestation of pregnancy; Z87.891 Personal history of nicotine dependence

== ENCOUNTER 2019-11-16 22:11 | Emergency (ER) | payer OTHER ==
[2019-11-16 22:30] VITALS: BP 159/106; TEMP 97.6; O2SAT 99
[2019-11-16] MEDS ORDERED: MEPERIDINE HCL 50 MG/ML VIAL IM ONE (22:54)
[2019-11-16] MEDS ORDERED: ONDANSETRON ODT 8 MG TAB SL ONE (22:54)
--- NOTE | 2019-11-16 23:53 | ED.PDOC ---
History of Present Illness - General Chief Complaint: Dental/Mouth Stated Complaint: Tooth pain Time Seen by Provider: 11/16/19 22:53 Source: patient, RN notes reviewed, Vital Signs reviewed, family Exam Limitations: no limitations - History of Present Illness Initial Comments: patient presents with worsening tooth pain. Patient was seen 3 days ago and started on and has an appointment with the dentist in the morning. Pain is worse when she attempts to eat or drink something cold. Keeping warm and moist helps the pain. Patient denies any fever, chills, or diarrhea. Patient has hyperemesis gravidarum secondary to being 22 weeks . The pain is in her left upper jaw. Timing/Duration: gradual Severity: moderate EENT Location: dental Prearrival Treatment: prescription meds Improving Factors: medication Worsening Factors: cold therapy, movement Associated Symptoms: facial pain/swelling, tooth pain Allergies/Adverse Reactions: Allergies Ketorolac Tromethamine [From Toradol] Allergy (Verified 08/17/19 23:25) Other caused nose to swell and itch Home Medications: Ambulatory Orders Ondansetron Odt [Zofran ODT] 4 mg PO Q8HR PRN #10 tab 09/16/19 Chlorhexidine Mouth Rinse [Peridex] 15 ml MT BID 10 Days #1 bottle 11/13/19 Clindamycin HCl 300 mg PO TID 10 Days cap 11/13/19 Vit W/ Ferrous Fumara [] 1 tab PO DAILY 11/13/19 Review of Systems - Review of Systems Constitutional: States: no symptoms reported EENTM: States: see HPI, ear pain, mouth pain Respiratory: States: no symptoms reported Cardiology: States: no symptoms reported Gastrointestinal/Abdominal: States: no symptoms reported Genitourinary: States: no symptoms reported Skin: States: no symptoms reported Neurological: States: no symptoms reported Endocrine: States: no symptoms reported Hematologic/Lymphatic: States: no symptoms reported All other Systems: Reviewed and Negative Past Medical History (General) - Patient Medical History Hx Seizures: No Hx Stroke: No Hx Dementia: No Hx Asthma: Yes Hx of COPD: No Hx Cardiac Disorders: No Hx Congestive Heart Failure: No Hx Pacemaker: No Hx Hypertension: No Hx Thyroid Disease: No Hx Diabetes: Yes - gestational DM Hx Gastroesophageal Reflux: No Hx Renal Disease: No Hx Cancer: No Hx of HIV: No Hx Hepatitis C: No Hx MRSA: No - Vaccination History Hx Tetanus, Diphtheria Vaccination: No Hx Influenza Vaccination: No Hx Pneumococcal Vaccination: No - Social History Hx Tobacco Use: Yes Hx Chewing Tobacco Use: No Hx Alcohol Use: No Hx Substance Use: No Hx Substance Use Treatment: No Hx Depression: No Hx Physical Abuse: No Hx Emotional Abuse: No Hx Suspected Abuse: No - Female History Patient is a Female of Child Bearing Age (10 -59 yrs old): Yes Hx Last Menstrual Period: 06/15/19 Patient : Yes Expected Date of Delivery:: 03/26/20 Hx Gestational Age: 6 - Triage Comment ED Triage Comment: patient was seen in this ED on thursday and given an rx for Climdamycin. Patient has a dental appointment scheduled for 11/17/2019 Family Medical History - Family History Paternal Grandparents Family History: Unknown Living Status: Unknown Hx Family Diabetes: Yes - type 2 Hx Family;Other: Ht disease Sister Living Status: Still Living Hx Family;Other: thyroid dysfunction, migraines Mother Family History: No Known Hx Family;Other: migraines, multiple births Father Living Status: Still Living Hx Family Hypertension: Yes Hx Family Diabetes: Yes Hx Family Cancer: Yes Hx Family;Other: multiple births Brother Paternal Family History: Unknown Living Status: Still Living Hx Family Asthma: No Hx Family Congestive Heart Failure: No Hx Family Hypertension: No Hx Family Cancer: Yes - bone Physical Exam - Physical Exam General Appearance: Alert, Anxious, Obvious distress, Well Developed, Well Hydrated, Well Nourished Eye Exam: bilateral normal Ear Exam: bilateral ear: auricle normal, canal normal, TM normal Nasal Exam: normal inspection Throat Exam: dental tenderness - tooth #15 Neck: non-tender, full range of motion, supple, lymphadenopathy (R), lymphadenopathy (L) Cardiovascular/Respiratory: regular rate, rhythm, no M/R/G, normal peripheral pulses, no JVD, normal breath sounds, no respiratory distress Abdominal Exam: non-tender, other - gravid abdomen approximately 22 weeks 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 Plan discharge home with a pain pill package and follow up with her dentist in the morning. I discussed the plan of care with the patient and her they voice understanding and agreement. Jared Parmar M.D. #[id number] Departure - Departure Clinical Impression: Chronic dental infection Dental injury Qualifiers: Encounter type: initial encounter Qualified Code(s): S09.93XA - Unspecified injury of face, initial encounter Time of Disposition: 23:57 Disposition: Discharge to Home or Self Care Condition: Good Departure Forms: ED Discharge - Pt. Copy, Patient Portal Self Enrollment Instructions: DI for Dental Pain Referrals: David Rodriguez MD [Primary Care Provider] - 1-5 Days Home Medications: Ambulatory Orders Ondansetron Odt [Zofran ODT] 4 mg PO Q8HR PRN #10 tab 09/16/19 Chlorhexidine Mouth Rinse [Peridex] 15 ml MT BID 10 Days #1 bottle 11/13/19 Clindamycin HCl 300 mg PO TID 10 Days cap 11/13/19 Vit W/ Ferrous Fumara [] 1 tab PO DAILY 11/13/19
[2019-11-16] MEDS ORDERED: HYDROCOD/APAP 5/325 (ER DISP) #3 TAB PO ONE (23:57)
== END 2019-11-17 00:10 | disposition home or self-care (01) ==
LOC: ER 22:11
DX: O98.812 Other maternal infectious and parasitic diseases complicating pregnancy, second trimester (principal); K04.7 Periapical abscess without sinus; S09.93XA Unspecified injury of face, initial encounter; O21.0 Mild hyperemesis gravidarum; J45.909 Unspecified asthma, uncomplicated; O99.512 Diseases of the respiratory system complicating pregnancy, second trimester; O24.419 Gestational diabetes mellitus in pregnancy, unspecified control; Z3A.22 22 weeks gestation of pregnancy; Z88.8 Allergy status to other drugs, medicaments and biological substances; Y92.9 Unspecified place or not applicable; Z87.891 Personal history of nicotine dependence

== ENCOUNTER 2020-06-27 03:21 | Emergency (ER) | payer OTHER ==
[2020-06-27] MEDS ORDERED: MORPHINE SULFATE INJ 10 MG/ML VIAL ONE (03:50)
[2020-06-27] MEDS ORDERED: ONDANSETRON INJ 4 MG/2 ML VIAL ONE (03:50)
[2020-06-27] MEDS ORDERED: SODIUM CHLORIDE 0.9% 1000ML 1,000 ML ONE (03:51)
[2020-06-27] MEDS ORDERED: DICYCLOMINE HCL 20 MG TAB ONE (03:51)
[2020-06-27] MEDS: SODIUM CHLORIDE 0.9% 1000ML 1,000 ML IVS ONE (04:00)
[2020-06-27] MEDS: MORPHINE SULFATE INJ 10 MG/ML VIAL IM ONE (04:05)
[2020-06-27] MEDS: ONDANSETRON INJ 4 MG/2 ML VIAL IV ONE (04:05)
--- NOTE | 2020-06-27 04:30 | ED.PDOC ---
History of Present Illness - General Chief Complaint: Abdominal Pain Time Seen by Provider: 06/27/20 04:28 Information Source: patient - History of Present Illness Initial Comments: Pleasant 24 yo Female with a PMH of asthma presents with 17 hours of RUQ pain radiating to her back. Pain is constant, worse with eating. relieved by nothing. Has not tried PO meds. denies burning. no n/v/d. no black or bloody bm. No chest pain or shortness of breath. Has not had similar pain before. Mom has hx of gallstones. Abdominal Pain Onset Location: RUQ, epigastric Pain Radiation: back Quality: moderate, sharpness Timing/Duration: 7-24 hours Improving Factors: nothing Worsening Factors: eating Associated Symptoms: denies symptoms Review of Systems - Review of Systems Constitutional: Denies: diaphoresis, fever, malaise EENTM: Denies: eye pain, blurred vision Respiratory: Denies: cough, orthopnea, short of breath, wheezing Cardiology: Denies: chest pain, edema, palpitations Gastrointestinal/Abdominal: States: abdominal pain. Denies: constipation, diarrhea, nausea, vomiting Genitourinary: States: other - no vaginal discharge, LMP: current . Denies: discharge, dysuria, frequency, hematuria, pain Musculoskeletal: States: back pain. Denies: gout, joint pain, joint swelling, muscle pain Skin: Denies: change in color, lumps, rash Neurological: Denies: anxiety, depressed, headache, numbness Endocrine: Denies: increased hunger, unexplained weight gain, unexplained weight loss Hematologic/Lymphatic: Denies: anemia, blood clots, easy bleeding All other Systems: Reviewed and Negative Past Medical History (General) - Patient Medical History Hx Seizures: No Hx Stroke: No Hx Dementia: No Hx Asthma: Yes Hx of COPD: No Hx Cardiac Disorders: No Hx Congestive Heart Failure: No Hx Pacemaker: No Hx Hypertension: No Hx Thyroid Disease: No Hx Diabetes: Yes - gestational DM Hx Gastroesophageal Reflux: No Hx Renal Disease: No Hx Cancer: No Hx of HIV: No Hx Hepatitis C: No Hx MRSA: No Surgical History: other - x4, BTL - Vaccination History Hx Tetanus, Diphtheria Vaccination: No Hx Influenza Vaccination: No Hx Pneumococcal Vaccination: No - Social History Hx Tobacco Use: Yes Hx Chewing Tobacco Use: No Hx Alcohol Use: No Hx Substance Use: No Hx Substance Use Treatment: No Hx Depression: No Hx Physical Abuse: No Hx Emotional Abuse: No Hx Suspected Abuse: No - Female History Hx Last Menstrual Period: 06/15/19 Patient : Yes Expected Date of Delivery:: 03/26/20 Hx Gestational Age: 6 Family Medical History - Family History Paternal Grandparents Family History: Unknown Living Status: Unknown Hx Family Diabetes: Yes - type 2 Hx Family;Other: Ht disease Sister Living Status: Still Living Hx Family;Other: thyroid dysfunction, migraines Mother Family History: No Known Hx Family;Other: migraines, multiple births Father Living Status: Still Living Hx Family Hypertension: Yes Hx Family Diabetes: Yes Hx Family Cancer: Yes Hx Family;Other: multiple births Brother Paternal Family History: Unknown Living Status: Still Living Hx Family Asthma: No Hx Family Congestive Heart Failure: No Hx Family Hypertension: No Hx Family Cancer: Yes - bone Physical Exam - Physical Exam General Appearance: Alert, Comfortable, No apparent distress Eyes, Ears, Nose, Throat Exam: normal ENT inspection Neck: non-tender, full range of motion, supple, normal inspection Respiratory: chest non-tender, lungs clear, normal breath sounds, no respiratory distress Cardiovascular/Chest: normal peripheral pulses, regular rate, rhythm, no edema, no gallop, no JVD, no murmur, other - HR 88 Peripheral Pulses: 2+ Gastrointestinal/Abdominal: normal bowel sounds, soft, no organomegaly, no pulsatile mass, tenderness - RUQ, negative [place]'s, voluntary gaurding Rectal Exam: deferred Back Exam: normal inspection, no CVA tenderness Extremity: normal range of motion, non-tender, normal inspection, no pedal edema, no calf tenderness, normal capillary refill 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 Lymphatic: no adenopathy Special Observations: Tolerates PO, Using mobile device Progress - Progress Progress: IV established. Given 1 L NS bolus, 4 mg morphine, 4 mg zofran. 20 mg PO bentyl. Bedside US showed 3-4 large gallstones at the gallbladder neck. Gallbladder wall .28 cm at thickest point, CBD measure .38-.43 cm. 06/27/20 04:33 Pain improved. CMP unremarkable. CBC shows mild anemia, recommend follow up with pcp and start daily iron supplement or eat foods high in iron. Warning precautions given. - Results/Orders Results/Orders: 06/27/20 04:00 COMPLETE METABOLIC PROFILE Routine LIPASE Routine Laboratory Results WBC 9.7 K/mm3 (4.8-10.8) 06/27/20 04:00 RBC 5.20 M/mm3 (4.20-5.40) 06/27/20 04:00 Hgb 11.4 gm/dL (12.0-16.0) L 06/27/20 04:00 Hct 35.1 % (36.0-47.0) L 06/27/20 04:00 MCV 67.4 fl (81.0-99.0) L 06/27/20 04:00 MCH 22.0 pg (27.0-31.0) L 06/27/20 04:00 MCHC 32.6 g/dL (33.0-37.0) L 06/27/20 04:00 RDW 19.7 % (11.5-14.5) H 06/27/20 04:00 Plt Count 340 K/mm3 (130-400) 06/27/20 04:00 MPV 8.6 fl (7.40-10.4) 06/27/20 04:00 Absolute Neuts (auto) 5.50 K/uL (1.8-6.8) 06/27/20 04:00 Absolute Lymphs (auto) 3.10 K/uL (1.0-3.4) 06/27/20 04:00 Absolute Monos (auto) 0.60 K/uL (0.2-0.8) 06/27/20 04:00 Absolute Eos (auto) 0.40 K/uL (0.0-0.4) 06/27/20 04:00 Absolute Basos (auto) 0.10 K/uL (0.0-0.1) 06/27/20 04:00 Neutrophils % 56.8 % (42.0-78.0) 06/27/20 04:00 Lymphocytes % 32.4 % (20.0-50.0) 06/27/20 04:00 Monocytes % 5.9 % (2.0-9.0) 06/27/20 04:00 Eosinophils % 4.2 % (1.0-5.0) 06/27/20 04:00 Basophils % 0.7 % (0.0-2.0) 06/27/20 04:00 Urine Color Yellow (Yellow) 06/27/20 04:00 Urine Appearance Clear (Clear) 06/27/20 04:00 Urine pH 6.0 (4.5-7.8) 06/27/20 04:00 Ur Specific [place] 1.020 (1.005-1.030) 06/27/20 04:00 Urine Protein Negative mg/dL 06/27/20 04:00 Urine Glucose (UA) Negative mg/dL (Negative) 06/27/20 04:00 Urine Ketones Negative mg/dL (NEGATIVE) 06/27/20 04:00 Urine Blood Small (Negative) H 06/27/20 04:00 Urine Nitrite Negative 06/27/20 04:00 Urine Bilirubin Negative (NEGATIVE) 06/27/20 04:00 Urine Urobilinogen 1.0 mg/dL (0.2-1.0) 06/27/20 04:00 Ur Leukocyte Esterase Negative (Negative) 06/27/20 04:00 Urine RBC 0-1 /hpf 06/27/20 04:00 Urine WBC 0 /hpf 06/27/20 04:00 Ur Epithelial Cells 1-3 /hpf 06/27/20 04:00 Urine Bacteria Rare 06/27/20 04:00 Urine HCG, Qual Negative (NEGATIVE) 06/27/20 04:00 Departure - Departure Clinical Impression: Cholelithiasis Qualifiers: Cholelithiasis location: gallbladder Cholecystitis presence: without cho lecystitis Biliary obstruction: without biliary obstruction Qualified Code(s): K80.20 - Calculus of gallbladder without cholecystitis without obstruction Disposition: Discharge to Home or Self Care Condition: Good Departure Forms: ED Discharge - Pt. Copy, Patient Portal Self Enrollment Instructions: DI for Abdominal Pain-Adult, Gallstones, Low Cholesterol, Saturated Fat, and Trans Fat Diet , Gallstones (DC) Diet: other - Avoid fatty foods. Referrals: David Rodriguez MD [Primary Care Provider] - 1-5 Days Jaguar Cassidy MD [Active Staff] - 1-2 Days (Call to schedule appoinment for to discuss gallbladder surgery. ) Prescriptions: Dicyclomine HCl [Bentyl] 20 mg PO TID PRN #21 tab PRN Reason: Abdominal Cramping Ibuprofen [Motrin] 600 mg PO QID PRN #30 tab PRN Reason: Mild To Moderate Pain Home Medications: Ambulatory Orders Ondansetron Odt [Zofran ODT] 4 mg PO Q8HR PRN #10 tab 09/16/19 Chlorhexidine Mouth Rinse [Peridex] 15 ml MT BID 10 Days #1 bottle 11/13/19 Clindamycin HCl 300 mg PO TID 10 Days cap 11/13/19 Vit W/ Ferrous Fumara [] 1 tab PO DAILY 11/13/19 Dicyclomine HCl [Bentyl] 20 mg PO TID PRN #21 tab 06/27/20 Ibuprofen [Motrin] 600 mg PO QID PRN #30 tab 06/27/20
[2020-06-27 05:01] VITALS: O2SAT 96
[2020-06-27] MEDS ORDERED: HYDROCOD/APAP 5/325 (ER DISP) #3 TAB PO ONE (05:28)
[2020-06-27] MEDS: HYDROCOD/APAP 5/325 (ER DISP) #3 TAB PO ONE (05:31)
[2020-06-27 05:32] VITALS: BP 129/78; TEMP 97.1
== END 2020-06-27 05:33 | disposition home or self-care (01) ==
LOC: ER 03:21
DX: K80.20 Calculus of gallbladder without cholecystitis without obstruction (principal); J45.909 Unspecified asthma, uncomplicated; Z87.891 Personal history of nicotine dependence
CPT/HCPCS: 80053; 81001; 81025; 82150; 83690; 85025; J2270; J2405; J7030

== ENCOUNTER → 2020-07-16 | Outpatient (CLI) | payer OTHER ==
--- NOTE | 2020-07-17 09:29 | US ---
EXAM DESCRIPTION: Gall Bladder: ULTRASOUND. CLINICAL HISTORY: CHOLELITHIASIS WITHOUT OBSTRUCTION COMPARISON: Chest and abdomen radiographs July 02. TECHNIQUE: Transabdominal scanning: Ramirez-scale and Doppler modes. FINDINGS: Gallbladder: Multiple echogenic structures with acoustic shadowing. Diameter of the stones ranges from 1.1 to 1.2 cm. Contracted. No fluid around the gallbladder. Wall thickening with edema 3.5 mm. Non-tender with transducer pressure. Common bile duct: caliber 4.3 mm within normal limits. Liver: Heterogeneous increased echogenicity; contour liver capsule smooth where seen. No fluid around the liver. Intrahepatic biliary ducts normal caliber. Doppler hepatopedal flow portal vein.. 10 mm caliber. Long axis right lobe 14.7 cm. Pancreas: normal size Normal echogenicity. Duct not seen. Aorta: 2.0 cm proximal is normal range. Right kidney: long axis is 10.3; volume 116.9 mL.. Normal cortical thickness and echogenicity. No echogenic stones; no hydronephrosis. IMPRESSION: 1. Gallbladder with cholelithiasis and edematous thickened wall. Risk for developing infection. Nontender with transducer pressure. Common bile duct normal caliber. 2. Heterogeneous fatty liver not enlarged. Physiologic vascularity and ducts. Smooth capsule with no ascites. Pancreas is negative. 3. Right kidney is unremarkable. Proximal aorta normal caliber. CRITICAL COMMUNICATION: The critical value was communicated directly by Dr. Webber via phone call, with Ms. Sharmila BERGMAN, at approximately 920 hours, on July 17, 2020. Electronically signed by: Florian Webber MD 07/17/2020 9:27 AM CDT
== END ==
LOC: US 11:00
PROVIDERS: ATTEND Nurse Practitioner Family
DX: K80.20 Calculus of gallbladder without cholecystitis without obstruction (principal); K76.0 Fatty (change of) liver, not elsewhere classified; R60.9 Edema, unspecified

== ENCOUNTER 2020-09-03 22:12 | Emergency (ER) | payer SELFPAY ==
[2020-09-03] MEDS ORDERED: SODIUM CHLORIDE 0.9% (FLUSH) 10 ML SYG IV PRN (22:35)
[2020-09-03] MEDS ORDERED: SODIUM CHLORIDE 0.9% 1000ML 1,000 ML IVS ONE (22:35)
--- NOTE | 2020-09-03 22:35 | ED.PDOC ---
History of Present Illness - General Chief Complaint: Headache Stated Complaint: headache Time Seen by Provider: 09/03/20 22:32 Source: patient - History of Present Illness Initial Comments: 25 yo female with PMH of obesity, GERD, gallstones, migraines who presents with cc of headache. Onset about 7 hours ago, constant, located to the back of her head with radiation to the front of her head, pressure and throbbing "like someone is hitting me in the head with a hammer", 9/10 severity, took Tylenol 3 x1 at home with little relief. She also reports she had some nausea after eating some stepping and had episodes of nonbloody nonbilious emesis. Light and sounds make her headache worse. Reports feels pretty similar to her usual migraine headaches which she has developed 5-6 times per month and usually is able to manage at home with [id number] analgesics. She does report she just recently had cholecystectomy in [place] on 08/23/2020. LMP 08/21/2020. Allergies/Adverse Reactions: Allergies Ketorolac Tromethamine [From Toradol] Allergy (Verified 09/03/20 22:53) Other caused nose to swell and itch (patient can take motrin without any issues) Home Medications: Ambulatory Orders Acetaminophen W/ Codeine [Tylenol W/ CODEINE #3] 1 ea PO Q6HR #20 ea 07/29/20 Review of Systems - Review of Systems Review of Systems: 09/03/20 22:58 as per HPI All other Systems: Reviewed and Negative Past Medical History (General) - Patient Medical History Hx Seizures: No Hx Stroke: No Hx Dementia: No Hx Asthma: Yes Hx of COPD: No Hx Cardiac Disorders: No Hx Congestive Heart Failure: No Hx Pacemaker: No Hx Hypertension: No Hx Thyroid Disease: No Hx Diabetes: Yes - gestational DM Hx Gastroesophageal Reflux: No Hx Renal Disease: No Hx Cancer: No Hx of HIV: No Hx Hepatitis C: No Hx MRSA: No - Vaccination History Hx Tetanus, Diphtheria Vaccination: No Hx Influenza Vaccination: No Hx Pneumococcal Vaccination: No - Social History Hx Tobacco Use: Yes Hx Chewing Tobacco Use: No Hx Alcohol Use: No Hx Substance Use: No Hx Substance Use Treatment: No Hx Depression: No Hx Physical Abuse: No Hx Emotional Abuse: No Hx Suspected Abuse: No - Female History Hx Last Menstrual Period: 06/15/19 Patient : Yes Expected Date of Delivery:: 03/26/20 Hx Gestational Age: 6 Family Medical History - Family History Paternal Grandparents Family History: Unknown Living Status: Unknown Hx Family Diabetes: Yes - type 2 Hx Family;Other: Ht disease Sister Living Status: Still Living Hx Family;Other: thyroid dysfunction, migraines Mother Family History: No Known Hx Family;Other: migraines, multiple births Father Living Status: Still Living Hx Family Hypertension: Yes Hx Family Diabetes: Yes Hx Family Cancer: Yes Hx Family;Other: multiple births Brother Paternal Family History: Unknown Living Status: Still Living Hx Family Asthma: No Hx Family Congestive Heart Failure: No Hx Family Hypertension: No Hx Family Cancer: Yes - bone Physical Exam - Physical Exam General Appearance: Alert, Comfortable, No apparent distress, Obese Eye Exam: bilateral normal Ears, Nose, Throat: hearing grossly normal, normal ENT inspection, normal pharynx Neck: non-tender, full range of motion, supple, normal inspection Respiratory: chest non-tender, lungs clear, normal breath sounds, no respiratory distress, no accessory muscle use Cardiovascular/Chest: normal peripheral pulses, regular rate, rhythm, no edema, no gallop, no JVD, no murmur Peripheral Pulses: radial,right: 2+, radial,left: 2+ Gastrointestinal/Abdominal: normal bowel sounds, non tender, soft, no organomegaly Back Exam: normal inspection, no CVA tenderness, no vertebral tenderness Extremity: normal range of motion, non-tender, normal inspection, no pedal edema, no calf tenderness, normal capillary refill 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 No emergent etiology seems apparent. Patient is stable. Reports 9/10 severity but appears in no acute distress in the ED bed. Possibly some drug-seeking behavior. -We will place PIV, will give Phenergan 12.5 mg IV and 1 L normal saline bolus. Patient states that she has allergy to Toradol which causes her nose to itch and swell 09/04/20 01:08 -Patient remains stable. She now reports that her migraine is markedly improved and is eager to go home. Discharged home in good condition. Return warnings discussed. Advised close follow-up with your primary care physician for repeat evaluation of her migraines. Gautam May MD Billing #[id number] 09/03/20 22:35 IV Care:Saline Lock per Protoc QSHIFT Sodium Chloride 0.9% (Flush) [Saline Flush Syringe] 10 ml IV PRN PRN Laboratory Results - last 24 hr 09/03/20 09/03/20 22:54 22:54 Urine Color Yellow Urine Appearance Sl cloudy Urine pH 6.0 Ur Specific [place] 1.015 Urine Protein Negative Urine Glucose (UA) Negative Urine Ketones Negative Urine Blood Negative Urine Nitrite Negative Urine Bilirubin Negative Urine Urobilinogen 0.2 Ur Leukocyte Esterase Negative Urine RBC 0 Urine WBC 0 Ur Epithelial Cells 5-10 Urine Bacteria Rare Urine HCG, Qual Negative Departure - Departure Clinical Impression: Migraine Qualifiers: Migraine type: unspecified Status migrainosus presence: without status migrainosus Intractability: not intractable Qualified Code(s): G43.909 - Migraine, unspecified, not intractable, without status migrainosus Time of Disposition: 01:07 Disposition: Discharge to Home or Self Care Condition: Good Departure Forms: ED Discharge - Pt. Copy, Patient Portal Self Enrollment Instructions: DI for Headache, Migraines (DC) Diet: resume usual diet Activity: increase activity as tolerated Referrals: David Rodriguez MD [Primary Care Provider] - 1-2 Weeks Home Medications: Ambulatory Orders Acetaminophen W/ Codeine [Tylenol W/ CODEINE #3] 1 ea PO Q6HR #20 ea 07/29/20 Additional Instructions: Remain well-hydrated and gradually advance your diet and activity level as tolerated. You may continue to take [id number] medications as needed for pain/headache including ibuprofen 600 mg every 6 hours as needed and Tylenol 650 mg every 6 hours as needed. Follow-up was recommended with your primary care physician in the next 1 to 2 weeks for repeat evaluation of your migraines.
[2020-09-03 22:53] VITALS: TEMP 98.2
[2020-09-03] MEDS ORDERED: PROMETHAZINE HCL INJ 12.5 MG in SODIUM CHLORIDE 0.9% 50ML 50 ML IVPB ONE (22:55)
[2020-09-04 01:04] VITALS: BP 119/76; O2SAT 96
== END 2020-09-04 01:11 | disposition home or self-care (01) ==
LOC: ER 22:12
DX: G43.909 Migraine, unspecified, not intractable, without status migrainosus (principal); J45.909 Unspecified asthma, uncomplicated; K21.9 Gastro-esophageal reflux disease without esophagitis; E66.9 Obesity, unspecified; Z90.49 Acquired absence of other specified parts of digestive tract; Z88.5 Allergy status to narcotic agent; Z68.41 Body mass index [BMI] 40.0-44.9, adult; Z87.891 Personal history of nicotine dependence
CPT/HCPCS: 81001; 81025; A4216; J2550; J7030

== ENCOUNTER 2020-09-19 01:22 | Emergency (ER) | payer OTHER, SELFPAY ==
[2020-09-19] MEDS ORDERED: SODIUM CHLORIDE 0.9% (FLUSH) 10 ML SYG IV PRN (01:28)
--- NOTE | 2020-09-19 02:26 | ED.PDOC ---
History of Present Illness - General Chief Complaint: Back Pain or Injury Stated Complaint: right side flank pain Time Seen by Provider: 09/19/20 01:28 Source: patient, RN notes reviewed, Vital Signs reviewed Exam Limitations: no limitations - History of Present Illness Initial Comments: Patient is a 25-year-old white female who presents with complaints of left lower quadrant pain that has been ongoing x5 to 7 days. The pain is cramping in nature, intermittent, getting worse, nothing makes it better. Worse with palpation. There is no radiation of the pain. Timing/Duration: 1 week, getting worse Severity: moderate Improving Factors: nothing Worsening Factors: movement Associated Symptoms: denies symptoms Allergies/Adverse Reactions: Allergies Ketorolac Tromethamine [From Toradol] Allergy (Verified 09/03/20 22:53) Other caused nose to swell and itch (patient can take motrin without any issues) Home Medications: Ambulatory Orders Acetaminophen W/ Codeine [Tylenol W/ CODEINE #3] 1 ea PO Q6HR #20 ea 07/29/20 Ondansetron [Ondansetron Odt] 4 mg PO Q6H #12 tab 09/19/20 Review of Systems - Review of Systems Constitutional: States: no symptoms reported, see HPI. Denies: chills, fever EENTM: States: no symptoms reported. Denies: eye pain, blurred vision, double v ision Respiratory: States: no symptoms reported. Denies: cough, short of breath Cardiology: States: no symptoms reported. Denies: chest pain, palpitations, syncope Gastrointestinal/Abdominal: States: see HPI, abdominal pain. Denies: diarrhea, vomiting Genitourinary: Denies: dysuria, frequency Musculoskeletal: States: no symptoms reported. Denies: back pain, joint pain, neck pain Skin: States: no symptoms reported. Denies: change in color, rash Neurological: States: no symptoms reported. Denies: headache, tingling, tremors, weakness Endocrine: States: no symptoms reported Hematologic/Lymphatic: States: no symptoms reported, other - Patient 6 days late for her menses. Denies: blood clots, easy bleeding All other Systems: Reviewed and Negative Past Medical History (General) - Patient Medical History Hx Seizures: No Hx Stroke: No Hx Dementia: No Hx Asthma: Yes Hx of COPD: No Hx Cardiac Disorders: No Hx Congestive Heart Failure: No Hx Pacemaker: No Hx Hypertension: No Hx Thyroid Disease: No Hx Diabetes: Yes - gestational DM Hx Gastroesophageal Reflux: No Hx Renal Disease: No Hx Cancer: No Hx of HIV: No Hx Hepatitis C: No Hx MRSA: No Surgical History: cholecystectomy, other - Vaccination History Hx Tetanus, Diphtheria Vaccination: Yes Hx Influenza Vaccination: Yes Hx Pneumococcal Vaccination: No Immunizations Up to Date: Yes - Social History Hx Tobacco Use: Yes Hx Chewing Tobacco Use: No Hx Alcohol Use: No Hx Substance Use: No Hx Substance Use Treatment: No Hx Depression: No Feels Threatened In Home Enviroment: No Feels Threatened In a Relationship: No Hx Physical Abuse: No Hx Emotional Abuse: No Hx Suspected Abuse: No - Activities of Daily Living Hospice Agency (if applicable):: None - Female History Hx Last Menstrual Period: 06/15/19 Patient : Yes Expected Date of Delivery:: 03/26/20 Hx Gestational Age: 7 - Triage Comment ED Triage Comment: states sheis 6 days late for menses cycle Family Medical History - Family History Paternal Grandparents Family History: Unknown Living Status: Unknown Hx Family Diabetes: Yes - type 2 Hx Family;Other: Ht disease Sister Living Status: Still Living Hx Family;Other: thyroid dysfunction, migraines Mother Family History: No Known Hx Family;Other: migraines, multiple births Father Living Status: Still Living Hx Family Hypertension: Yes Hx Family Diabetes: Yes Hx Family Cancer: Yes Hx Family;Other: multiple births Brother Paternal Family History: Unknown Living Status: Still Living Hx Family Asthma: No Hx Family Congestive Heart Failure: No Hx Family Hypertension: No Hx Family Cancer: Yes - bone Physical Exam - Physical Exam General Appearance: Alert, Anxious, Obese, Well Developed, Well Groomed, Well Hydrated, Well Nourished Eye Exam: bilateral normal Ears, Nose, Throat: hearing grossly normal, normal pharynx Neck: non-tender, full range of motion, supple Respiratory: chest non-tender, lungs clear, normal breath sounds, no respiratory distress Cardiovascular/Chest: normal peripheral pulses, no edema, no gallop, no JVD, no murmur, tachycardia Peripheral Pulses: radial,right: 2+, radial,left: 2+ Gastrointestinal/Abdominal: normal bowel sounds, soft, distended, tenderness - Left lower quadrant no peritoneal signs Back Exam: normal inspection, no CVA tenderness, no vertebral tenderness Extremity: normal range of motion, non-tender, normal inspection, no pedal edema 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 09/19/20 03:19 Labs are essentially normal. There is no UTI. Patient is not . CT scan is normal. I suspect this may be a mild case of viral gastroenteritis versus menstrual cramps. Plan on discharge home with follow-up with PCP in 2 to 3 days if she is not feeling better. I discussed this plan of care with her and she voices understanding and agreement. Jared Parmar M.D. #[id number] - Results/Orders Results/Orders: 09/19/20 01:28 Sodium Chloride 0.9% (Flush) [Saline Flush Syringe] 10 ml IV PRN PRN 09/19/20 01:29 IV Care:Saline Lock per Protoc QSHIFT 09/19/20 02:12 Hold Metformin x 48Hrs [id number] Laboratory Results - last 24 hr 09/19/20 09/19/20 09/19/20 01:55 01:55 01:55 WBC 9.6 RBC 5.27 Hgb 11.2 L Hct 34.9 L MCV 66.2 L MCH 21.3 L MCHC 32.2 L RDW 21.6 H Plt Count 288 MPV 8.7 Absolute Neuts (auto) 5.80 Absolute Lymphs (auto) 2.80 Absolute Monos (auto) 0.60 Absolute Eos (auto) 0.30 Absolute Basos (auto) 0.10 Neutrophils % 59.9 Lymphocytes % 29.2 Monocytes % 6.4 Eosinophils % 3.6 Basophils % 0.9 Sodium Potassium Chloride Carbon Dioxide Anion Gap BUN Creatinine BUN/Creatinine Ratio Random Glucose Serum Osmolality Calcium Total Bilirubin AST ALT Alkaline Phosphatase Serum Total Protein Albumin Globulin Albumin/Globulin Ratio Lipase Serum HCG, Qual Negative Urine Color Yellow Urine Appearance Sl cloudy Urine pH 7.0 Ur Specific Mutual 1.025 Urine Protein Negative Urine Glucose (UA) Negative Urine Ketones Negative Urine Blood Small H Urine Nitrite Negative Urine Bilirubin Negative Urine Urobilinogen 0.2 Ur Leukocyte Esterase Negative Urine RBC 1-3 Urine WBC 0-1 Ur Epithelial Cells 10-20 Urine Bacteria Rare 09/19/20 01:55 WBC RBC Hgb Hct MCV MCH MCHC RDW Plt Count MPV Absolute Neuts (auto) Absolute Lymphs (auto) Absolute Monos (auto) Absolute Eos (auto) Absolute Basos (auto) Neutrophils % Lymphocytes % Monocytes % Eosinophils % Basophils % Sodium 139 Potassium 3.8 Chloride 107 Carbon Dioxide 23 Anion Gap 12.8 BUN 15 Creatinine 0.81 BUN/Creatinine Ratio 18.5 Random Glucose 100 Serum Osmolality 278.5 Calcium 9.1 Total Bilirubin 0.4 AST 22 ALT 25 Alkaline Phosphatase 79 Serum Total Protein 7.7 Albumin 4.1 Globulin 3.6 H Albumin/Globulin Ratio 1.1 Lipase 31 Serum HCG, Qual Urine Color Urine Appearance Urine pH Ur Specific Mutual Urine Protein Urine Glucose (UA) Urine Ketones Urine Blood Urine Nitrite Urine Bilirubin Urine Urobilinogen Ur Leukocyte Esterase Urine RBC Urine WBC Ur Epithelial Cells Urine Bacteria CT abdomen and pelvis with contrast TECHNIQUE: Axial images were taken through the abdomen and pelvis after the administration of IV and oral contrast.All CT scans at this facility use dose modulation, iterative reconstruction, and/or weight based dosing when appropriate to reduce radiation dose to as low as reasonably achievable HISTORY : LLQ pain COMPARISON:None FINDINGS: Lung bases: The lung bases appear unremarkable. ABDOMEN: Cholecystectomy. The liver appears unremarkable. There is no evidence for mass or intrahepatic biliary ductal dilatation. A splenule is noted. The adrenal glands, pancreas are normal. The kidneys appear unremarkable. There is no evidence for hydronephrosis or stone. The large and small bowel of the abdomen and pelvis appears unremarkable. A normal appendix is identified coronal images 48 through 58. There is no evidence for acute appendicitis. Pelvis: The aorta is normal in caliber. There is no evidence for pathologically enlarged adenopathy. The bladder is incompletely distended. The uterus appears normal. Follicular ovaries are identified. The soft tissues and osseous structures are normal. Impression: Normal CT scan of the abdomen and pelvis. Electronically signed by: Pamela Franco MD 09/19/2020 3:09 AM Vital Signs 09/19/20 09/19/20 01:25 02:23 Temperature 97.8 F Pulse Rate [ 108 H 103 H pulse ox] Respiratory 18 18 Rate Blood Pressure 132/99 116/58 [Left Arm] O2 Sat by Pulse 97 98 Oximetry Departure - Departure Clinical Impression: Gastroenteritis Abdominal pain Qualifiers: Abdominal location: left lower quadrant Qualified Code(s): R10.32 - Left lower quadrant pain Time of Disposition: 03:26 Disposition: Discharge to Home or Self Care Condition: Good Departure Forms: ED Discharge - Pt. Copy, Patient Portal Self Enrollment Instructions: DI for Low Back Pain, Acute Abdomen (Belly Pain), Adult (DC), Viral Gastroenteritis, Adult (DC) Diet: resume usual diet Activity: increase activity as tolerated Referrals: David Rodriguez MD [Primary Care Provider] - 1-5 Days Prescriptions: Ondansetron [Ondansetron Odt] 4 mg PO Q6H #12 tab Home Medications: Ambulatory Orders Acetaminophen W/ Codeine [Tylenol W/ CODEINE #3] 1 ea PO Q6HR #20 ea 07/29/20 Ondansetron [Ondansetron Odt] 4 mg PO Q6H #12 tab 09/19/20
--- NOTE | 2020-09-19 03:11 | CT ---
CT abdomen and pelvis with contrast TECHNIQUE: Axial images were taken through the abdomen and pelvis after the administration of IV and oral contrast.All CT scans at this facility use dose modulation, iterative reconstruction, and/or weight based dosing when appropriate to reduce radiation dose to as low as reasonably achievable HISTORY : LLQ pain COMPARISON:None FINDINGS: Lung bases: The lung bases appear unremarkable. ABDOMEN: Cholecystectomy. The liver appears unremarkable. There is no evidence for mass or intrahepatic biliary ductal dilatation. A splenule is noted. The adrenal glands, pancreas are normal. The kidneys appear unremarkable. There is no evidence for hydronephrosis or stone. The large and small bowel of the abdomen and pelvis appears unremarkable. A normal appendix is identified coronal images 48 through 58. There is no evidence for acute appendicitis. Pelvis: The aorta is normal in caliber. There is no evidence for pathologically enlarged adenopathy. The bladder is incompletely distended. The uterus appears normal. Follicular ovaries are identified. The soft tissues and osseous structures are normal. Impression: Normal CT scan of the abdomen and pelvis. Electronically signed by: Pamela Franco MD 09/19/2020 3:09 AM CDT
[2020-09-19 03:38] VITALS: BP 119/62; TEMP 97.9; O2SAT 96
== END 2020-09-19 03:39 | disposition home or self-care (01) ==
LOC: ER 01:22
DX: K52.9 Noninfective gastroenteritis and colitis, unspecified (principal); R10.32 Left lower quadrant pain; F17.200 Nicotine dependence, unspecified, uncomplicated; Z86.32 Personal history of gestational diabetes